=== PATIENT | male | born 1945 | race Caucasian/White ===

== ENCOUNTER → 2016-05-30 | Outpatient (CLI) | payer MEDICARE, BC | LOC: MW.CHFP 08:00 | PROVIDERS: ATTEND Student in an Organized Health Care Education/Training Program | DX: Z51.81 Encounter for therapeutic drug level monitoring (principal); Z79.01 Long term (current) use of anticoagulants; I48.91 Unspecified atrial fibrillation | CPT/HCPCS: 85610; 99211 ==

== ENCOUNTER → 2016-07-04 | Outpatient (CLI) | payer MEDICARE, BC | LOC: MW.CHFP 08:00 | PROVIDERS: ATTEND Student in an Organized Health Care Education/Training Program | DX: Z51.81 Encounter for therapeutic drug level monitoring (principal); Z79.01 Long term (current) use of anticoagulants; I48.91 Unspecified atrial fibrillation | CPT/HCPCS: 85610; 99211 ==

== ENCOUNTER → 2016-08-01 | Outpatient (CLI) | payer MEDICARE, BC | LOC: MW.CHFP 08:00 | PROVIDERS: ATTEND Student in an Organized Health Care Education/Training Program | DX: Z51.81 Encounter for therapeutic drug level monitoring (principal); Z79.01 Long term (current) use of anticoagulants; I48.91 Unspecified atrial fibrillation | CPT/HCPCS: 85610; 99211 ==

== ENCOUNTER 2017-02-02 10:23 | Inpatient (IN) | payer MEDICARE, BC ==
[2017-02-02] MEDS ORDERED: Sodium Chloride 0.9% 1,000 ML IV ONE (10:29)
[2017-02-02] MEDS ORDERED: Sodium Chloride 0.9% 2.5 ML Syringe FLUSH PRN ×3 (10:29→15:45)
[2017-02-02] MEDS ORDERED: Sodium Chloride 0.9% 10 ML Syringe FLUSH PRN ×2 (10:29→15:45)
--- NOTE | 2017-02-02 10:32 | EDM.PDOC ---
ED HPI GENERAL MEDICAL PROBLEM - General Chief Complaint: Neurological Problem Stated Complaint: SOB Time Seen by Provider: 02/02/17 10:27 - History of Present Illness INITIAL COMMENTS - FREE TEXT/NARRATIVE: HISTORY AND PHYSICAL: History of present illness: Patient 71-year-old white male history of dementia who recently had a urinary tract infection and presents today for evaluation of urinary incontinence and mental status reported changes per daughter patient is a baseline of noncommunicative and is in no distress he's been no reported fever chills nausea vomiting chest pain or other concern Review of systems: As per history of present illness and below otherwise all systems reviewed and negative. Past medical history: As per history of present illness and as reviewed below otherwise noncontributory. Surgical history: As per history of present illness and as reviewed below otherwise noncontributory. Social history: No reported history of drug or alcohol abuse. Family history: As per history of present illness and as reviewed below otherwise noncontributory. Physical exam: HEENT: Atraumatic, normocephalic, pupils reactive, negative for conjunctival pallor or scleral icterus, mucous membranes moist, throat clear, neck supple, nontender, trachea midline. Lungs: Coarse bilaterally, breath sounds equal bilaterally, chest nontender. Heart: S1S2, regular, negative for clicks, rubs, or JVD. Abdomen: Soft, nondistended, nontender. Negative for masses or hepatosplenomegaly. Negative for costovertebral tenderness. Pelvis: Stable nontender. Genitourinary: Deferred. Rectal: Deferred. Extremities: Atraumatic, negative for cords or calf pain. Neurovascular unremarkable. Neuro: Awake, alert, follows commands and moves all extremities and grossly nonfocal exam Diagnostics: CBC CMP troponin PT/INR chest x-ray UA urine C&S lactic acid blood culture 2 CT brain Therapeutics: IV O2 monitor Impression: #1 dementia #2 history of urinary incontinence #3 history of altered mental status Definitive disposition and diagnosis as appropriate pending reevaluation and review of above. - Related Data Allergies Allergy/AdvReac Type Severity Reaction Status Date / Time No Known Allergies Allergy Verified 02/02/17 11:36 Home Meds: Home Meds Albuterol [IJD: Ventolin HFA] 2 puff INH ASDIRECTED PRN 10/15/15 [History] Donepezil HCl [Aricept] 10 mg PO DAILY 10/15/15 [History] Memantine HCl [Namenda Xr] 28 mg PO DAILY 10/15/15 [History] Metoprolol Tartrate 25 mg PO BID 10/15/15 [History] PARoxetine HCl [Paxil] 10 mg PO DAILY 10/15/15 [History] Warfarin Sodium [Jantoven] 2.5 mg PO MOWEFR@2100 10/15/15 [History] Umeclidinium Brm/Vilanterol Tr [Anoro Ellipta 62.5-25 MCG] 02/02/17 [History] Warfarin [Coumadin] 5 mg PO SUTUTHSA@2100 02/02/17 [History] Past Medical History Cardiovascular History: Reports: Hypertension Respiratory History: Reports: COPD Psychiatric History: Reports: Alzheimers Disease, Anxiety, Dementia, Depression Social & Family History - Family History Family Medical History: Unobtainable - Tobacco Use Smoking Status *Q: Current Every Day Smoker Years of Tobacco use: 10 Packs/Tins Daily: 0.5 ED ROS GENERAL - Review of Systems Review Of Systems: ROS reveals no pertinent complaints other than HPI. ED EXAM, GENERAL - Physical Exam Exam: See Below (See dictation) Course - Vital Signs Last Recorded V/S: Last Vital Signs Temp 36.2 C 02/02/17 11:36 Pulse 81 02/02/17 11:36 Resp 18 02/02/17 11:36 BP 157/75 H 02/02/17 11:36 Pulse Ox 93 L 02/02/17 11:36 - Orders/Labs/Meds Orders: Active Orders 24 hr Category Date Time Status Cardiac Monitoring [RC] . DIRECTED Care 02/02/17 10:29 Active EKG Documentation Completion [RC] STAT Care 02/02/17 10:29 Active Chest 1V Frontal [CR] Stat Exams 02/02/17 10:29 Taken Head wo Cont [CT] Stat Exams 02/02/17 10:33 Taken CULTURE BLOOD [BC] Stat Lab 02/02/17 10:34 Ordered CULTURE BLOOD [BC] Stat Lab 02/02/17 11:24 Received CULTURE URINE [RM] Stat Lab 02/02/17 12:00 Received UA W/MICROSCOPIC [URIN] Stat Lab 02/02/17 12:00 Results Sodium Chloride 0.9% [Normal Saline] 1,000 ml Med 02/02/17 10:29 Active IV .Bolus Sodium Chloride 0.9% [Saline Flush] Med 02/02/17 10:29 Active 10 ml FLUSH ASDIRECTED PRN Sodium Chloride 0.9% [Saline Flush] Med 02/02/17 10:29 Active 2.5 ml FLUSH ASDIRECTED PRN Sodium Chloride 0.9% [Saline Flush] Med 02/02/17 10:29 Active 2.5 ml FLUSH ASDIRECTED PRN Saline Lock Insert [OM.PC] Stat Oth 02/02/17 10:29 Ordered Medication Orders Sodium Chloride (Normal Saline) 1,000 mls @ 125 mls/hr IV .Bolus ONE Stop: 02/02/17 18:28 Sodium Chloride (Saline Flush) 2.5 ml FLUSH ASDIRECTED PRN PRN Reason: Keep Vein Open Sodium Chloride (Saline Flush) 10 ml FLUSH ASDIRECTED PRN PRN Reason: Keep Vein Open Sodium Chloride (Saline Flush) 2.5 ml FLUSH ASDIRECTED PRN PRN Reason: Keep Vein Open Labs: Laboratory Tests 02/02/17 02/02/17 02/02/17 Range/Units 10:34 10:34 10:34 WBC 11.42 H (4.0-11.0) K/uL RBC 4.57 (4.50-5.90) M/uL Hgb 14.2 (13.0-17.0) g/dL Hct 43.8 (38.0-50.0) % MCV 95.8 (80.0-98.0) fL MCH 31.1 (27.0-32.0) pg MCHC 32.4 (31.0-37.0) g/dL RDW Std Deviation 49.8 (28.0-62.0) fl RDW Coeff of Yadiel 14 (11.0-15.0) % Plt Count 189 (150-400) K/uL MPV 11.00 (7.40-12.00) fL Neut % (Auto) 76.2 (48.0-80.0) % Lymph % (Auto) 14.8 L (16.0-40.0) % Harnett % (Auto) 7.0 (0.0-15.0) % Eos % (Auto) 1.6 (0.0-7.0) % Baso % (Auto) 0.4 (0.0-1.5) % Neut # (Auto) 8.7 H (1.4-5.7) K/uL Lymph # (Auto) 1.7 (0.6-2.4) K/uL Harnett # (Auto) 0.8 (0.0-0.8) K/uL Eos # (Auto) 0.2 (0.0-0.7) K/uL Baso # (Auto) 0.1 (0.0-0.1) K/uL Nucleated RBC % 0.0 /100WBC Nucleated RBCs # 0 K/uL INR 2.21 H (0.86-1.11) Sodium 139 (136-146) mmol/L Potassium 4.2 (3.5-5.1) mmol/L Chloride 105 (98-110) mmol/L Carbon Dioxide 24 (21-31) mmol/L BUN 24 H (6.0-23.0) mg/dL Creatinine 1.1 (0.6-1.5) mg/dL Est Cr Clr Drug Dosing TNP Estimated GFR (MDRD) > 60.0 ml/min Glucose 107 (60-110) mg/dL Calcium 9.4 (8.8-10.8) mg/dL Total Bilirubin 1.7 H (0.1-1.5) mg/dL AST 15 (5-40) IU/L ALT 14 (8-54) IU/L Alkaline Phosphatase 113 (40-150) Ammonia (14-68) UG/DL Troponin I < 0.10 (0.0-0.29) NG/ML Total Protein 7.6 (6.0-8.0) g/dL Albumin 3.8 (3.4-4.8) g/dL Globulin 3.8 H (2.0-3.5) g/dL Albumin/Globulin Ratio 1.0 L (1.3-2.8) Urine Color Urine Appearance Urine pH (5.0-8.0) Ur Specific [place] (1.001-1.035) Urine Protein (NEGATIVE) mg/dL Urine Glucose (UA) (NEGATIVE) mg/dL Urine Ketones (NEGATIVE) mg/dL Urine Occult Blood (NEGATIVE) Urine Nitrite (NEGATIVE) Urine Bilirubin (NEGATIVE) Urine Urobilinogen (<2.0) EU/dL Ur Leukocyte Esterase (NEGATIVE) 02/02/17 02/02/17 Range/Units 10:34 12:00 WBC (4.0-11.0) K/uL RBC (4.50-5.90) M/uL Hgb (13.0-17.0) g/dL Hct (38.0-50.0) % MCV (80.0-98.0) fL MCH (27.0-32.0) pg MCHC (31.0-37.0) g/dL RDW Std Deviation (28.0-62.0) fl RDW Coeff of Yadiel (11.0-15.0) % Plt Count (150-400) K/uL MPV (7.40-12.00) fL Neut % (Auto) (48.0-80.0) % Lymph % (Auto) (16.0-40.0) % Harnett % (Auto) (0.0-15.0) % Eos % (Auto) (0.0-7.0) % Baso % (Auto) (0.0-1.5) % Neut # (Auto) (1.4-5.7) K/uL Lymph # (Auto) (0.6-2.4) K/uL Harnett # (Auto) (0.0-0.8) K/uL Eos # (Auto) (0.0-0.7) K/uL Baso # (Auto) (0.0-0.1) K/uL Nucleated RBC % /100WBC Nucleated RBCs # K/uL INR (0.86-1.11) Sodium (136-146) mmol/L Potassium (3.5-5.1) mmol/L Chloride (98-110) mmol/L Carbon Dioxide (21-31) mmol/L BUN (6.0-23.0) mg/dL Creatinine (0.6-1.5) mg/dL Est Cr Clr Drug Dosing Estimated GFR (MDRD) ml/min Glucose (60-110) mg/dL Calcium (8.8-10.8) mg/dL Total Bilirubin (0.1-1.5) mg/dL AST (5-40) IU/L ALT (8-54) IU/L Alkaline Phosphatase (40-150) Ammonia 32 (14-68) UG/DL Troponin I (0.0-0.29) NG/ML Total Protein (6.0-8.0) g/dL Albumin (3.4-4.8) g/dL Globulin (2.0-3.5) g/dL Albumin/Globulin Ratio (1.3-2.8) Urine Color YELLOW Urine Appearance CLEAR Urine pH 6.0 (5.0-8.0) Ur Specific [place] >= 1.030 (1.001-1.035) Urine Protein NEGATIVE (NEGATIVE) mg/dL Urine Glucose (UA) NEGATIVE (NEGATIVE) mg/dL Urine Ketones NEGATIVE (NEGATIVE) mg/dL Urine Occult Blood TRACE-LYSED (NEGATIVE) Urine Nitrite NEGATIVE (NEGATIVE) Urine Bilirubin NEGATIVE (NEGATIVE) Urine Urobilinogen 0.2 (<2.0) EU/dL Ur Leukocyte Esterase NEGATIVE (NEGATIVE) Meds: Medications Generic Name Dose Route Start Last Admin Trade Name Freq PRN Reason Stop Dose Admin Sodium Chloride 1,000 mls @ 125 mls/hr 02/02/17 10:29 Normal Saline IV 02/02/17 18:28 .Bolus ONE Sodium Chloride 2.5 ml 02/02/17 10:29 Saline Flush FLUSH ASDIRECTED PRN Keep Vein Open Sodium Chloride 10 ml 02/02/17 10:29 Saline Flush FLUSH ASDIRECTED PRN Keep Vein Open Sodium Chloride 2.5 ml 02/02/17 10:29 Saline Flush FLUSH ASDIRECTED PRN Keep Vein Open Departure - Departure Time of Disposition: 12:14 Disposition: Home, Self-Care 01 Condition: Good Clinical Impression: History of urinary incontinence Dementia Qualifiers: Dementia type: unspecified type Dementia behavioral disturbance: without behavioral disturbance Qualified Code(s): F03.90 - Unspecified dementia without behavioral disturbance - Discharge Information Forms: ED Department Discharge Additional Instructions: The following information is given to patients seen in the emergency department who are being discharged to home. This information is to outline your options for follow-up care. We provide all patients seen in our emergency department with a follow-up referral. The need for follow-up, as well as the timing and circumstances, are variable depending upon the specifics of your emergency department visit. If you don't have a primary care physician on staff, we will provide you with a referral. We always advise you to contact your personal physician following an emergency department visit to inform them of the circumstance of the visit and for follow-up with them and/or the need for any referrals to a consulting specialist. The emergency department will also refer you to a specialist when appropriate. This referral assures that you have the opportunity for followup care with a specialist. All of these measure are taken in an effort to provide you with optimal care, which includes your followup. Under all circumstances we always encourage you to contact your private physician who remains a resource for coordinating your care. When calling for followup care, please make the office aware that this follow-up is from your recent emergency room visit. If for any reason you are refused follow-up, please contact the [facility] emergency department at and asked to speak to the emergency department charge nurse. Follow-up primary medical doctor 1-2 days return as needed as discussed - My Orders Last 24 Hours: My Active Orders 02/02/17 10:29 Cardiac Monitoring [RC] . DIRECTED EKG Documentation Completion [RC] STAT Chest 1V Frontal [CR] Stat Sodium Chloride 0.9% [Normal Saline] 1,000 ml IV .Bolus Sodium Chloride 0.9% [Saline Flush] 10 ml FLUSH ASDIRECTED PRN Sodium Chloride 0.9% [Saline Flush] 2.5 ml FLUSH ASDIRECTED PRN Sodium Chloride 0.9% [Saline Flush] 2.5 ml FLUSH ASDIRECTED PRN Saline Lock Insert [OM.PC] Stat 02/02/17 10:33 Head wo Cont [CT] Stat 02/02/17 10:34 CULTURE BLOOD [BC] Stat 02/02/17 11:24 CULTURE BLOOD [BC] Stat 02/02/17 12:00 CULTURE URINE [RM] Stat UA W/MICROSCOPIC [URIN] Stat - Assessment/Plan Last 24 Hours: My Active Orders 02/02/17 10:29 Cardiac Monitoring [RC] . DIRECTED EKG Documentation Completion [RC] STAT Chest 1V Frontal [CR] Stat Sodium Chloride 0.9% [Normal Saline] 1,000 ml IV .Bolus Sodium Chloride 0.9% [Saline Flush] 10 ml FLUSH ASDIRECTED PRN Sodium Chloride 0.9% [Saline Flush] 2.5 ml FLUSH ASDIRECTED PRN Sodium Chloride 0.9% [Saline Flush] 2.5 ml FLUSH ASDIRECTED PRN Saline Lock Insert [OM.PC] Stat 02/02/17 10:33 Head wo Cont [CT] Stat 02/02/17 10:34 CULTURE BLOOD [BC] Stat 02/02/17 11:24 CULTURE BLOOD [BC] Stat 02/02/17 12:00 CULTURE URINE [RM] Stat UA W/MICROSCOPIC [URIN] Stat
[2017-02-02 11:04] LABS: CHLORIDE,CL 105 mmol/L (98-110); SODIUM,NA 139 mmol/L (136-146)
[2017-02-02] MEDS ORDERED: Levofloxacin/Dextrose 5%-Water 750 MG in Premix Bag 1 BAG IV ONE (12:33)
[2017-02-02] MEDS ORDERED: Albuterol 0.083% 2.5 MG/3 ML Neb Soln NEB PRN (15:45)
[2017-02-02] MEDS ORDERED: Albuterol 8 GM Inhaler INH PRN (15:57)
[2017-02-02] MEDS: Azithromycin 500 MG in Sodium Chloride 0.9% 250 ML IV SCH (17:06)
[2017-02-02] MEDS: Furosemide 40 MG/4 ML VIAL IVPUSH SCH (20:54)
[2017-02-02] MEDS: Metoprolol Tartrate 25 MG Tab PO SCH (20:55)
[2017-02-02] MEDS ORDERED: Warfarin 5 MG Tab PO SCH (21:00)
--- NOTE | 2017-02-02 22:36 | PCM.HP ---
H&P History of Present Illness - General Date of Service: 02/02/17 Admit Problem/Dx: Admission Diagnosis/Problem Admission Diagnosis/Problem CHF, Congestive heart failure Source of Information: Family - History of Present Illness Initial Comments - Free Text/Narative: Patient 71 years old man with hx of severe dementia presented to Er brought by his daughter who is taking care of him because for the past few days patient is feeling very weak and is unable to get out of bed, as he usually does. He also had low grade fever and an episode of urinary incontinence and his mental status is worse than his baseline , as per daughter Patient is already on low dose of levofloxacin for UTI started few days ago Onset of Symptoms: Reports: Gradual - Related Data Allergies/Adverse Reactions: Allergies Allergy/AdvReac Type Severity Reaction Status Date / Time No Known Allergies Allergy Verified 02/02/17 11:36 Home Medications: Home Meds Albuterol [IJD: Ventolin HFA] 2 puff INH Q6H PRN 10/15/15 [History] Donepezil HCl [Aricept] 10 mg PO DAILY 10/15/15 [History] Memantine HCl [Namenda Xr] 28 mg PO DAILY 10/15/15 [History] Metoprolol Tartrate 25 mg PO BID 10/15/15 [History] PARoxetine HCl [Paxil] 10 mg PO DAILY 10/15/15 [History] Warfarin Sodium [Jantoven] 2.5 mg PO MOWEFR@2100 10/15/15 [History] Levofloxacin 750 mg PO DAILY 02/02/17 [History] Umeclidinium Brm/Vilanterol Tr [Anoro Ellipta 62.5-25 MCG] 1 inh IH DAILY [History] Warfarin [Coumadin] 5 mg PO SUTUTHSA@2100 02/02/17 [History] Past Medical History - Past Health History Medical/Surgical History: Denies Medical/Surgical History Cardiovascular History: Reports: Afib, Hypertension Respiratory History: Reports: COPD Genitourinary History: Reports: Urinary Incontinence Neurological History: Reports: Alzheimers Disease Psychiatric History: Reports: Alzheimers Disease, Anxiety, Dementia, Depression Dermatologic History: Reports: Other (See Below) Other Dermatologic History: dry skin - Infectious Disease History Infectious Disease History: Reports: None Social & Family History - Family History Family Medical History: Unobtainable - Tobacco Use Smoking Status *Q: Former Smoker Years of Tobacco use: 10 Packs/Tins Daily: 0.5 Used Tobacco, but Quit: Yes Month Tobacco Last Used: 10/2015 - Caffeine Use Caffeine Use: Reports: Coffee - Recreational Drug Use Recreational Drug Use: No H&P Review of Systems - Review of Systems: Review Of Systems: See Below Exam - Exam Exam: See Below - Vital Signs Vital Signs: Last Vital Signs Temp 98.2 F 02/02/17 15:45 Pulse 88 02/02/17 20:55 Resp 22 H 02/02/17 19:45 BP 141/75 H 02/02/17 20:55 Pulse Ox 96 02/02/17 19:45 Weight: 230 lb 4.8 oz - Exam General: Alert HEENT: Conjunctiva Clear Neck: Supple, Trachea Midline, JVD Lungs: Decreased Breath Sounds, Crackles Cardiovascular: Normal S1, Normal S2, Irregular Rhythm, Gallop/S3 GI/Abdominal Exam: Normal Bowel Sounds, Non-Tender, No Organomegaly, No Distention, No Abnormal Bruit, No Mass Back Exam: Normal Inspection Extremities: Normal Inspection Neuro Extensive - Mental Status: Alert. No: Oriented x3 - Patient Data Result Diagrams: 02/02/17 10:34 02/02/17 10:34 *Q Meaningful Use (ADM) - VTE *Q VTE Criteria *Q: - Stroke *Q Stroke Criteria *Q: - AMI *Q AMI Criteria *Q: - Problem List (1) Acute exacerbation of CHF (congestive heart failure) SNOMED Code(s): 41553251 ICD Code: I50.9 - HEART FAILURE, UNSPECIFIED Status: Acute Current Visit : Yes (2) Pneumonia SNOMED Code(s): 357427736 ICD Code: J18.9 - PNEUMONIA, UNSPECIFIED ORGANISM Status: Acute Current Visit: Yes (3) Chronic atrial fibrillation SNOMED Code(s): 985329844 ICD Code: I48.2 - CHRONIC ATRIAL FIBRILLATION Status: Acute Current Visit : Yes Problem List Initiated/Reviewed/Updated: Yes Orders Last 24hrs: Active Orders 24 hr Category Date Time Status Telemetry Monitoring [Cardiac Monitoring] [RC] Q8H Care 02/02/17 15:59 Active Urinary Catheter Insertion [Insert Urinary Catheter] [ Care 02/02/17 11:45 Ordered OM.PC] Q24H Albuterol [Ventolin HFA] Med 02/02/17 15:57 Active 0 gm INH Q6H PRN Azithromycin [Zithromax] 500 mg Med 02/02/17 16:15 Active Sodium Chloride 0.9% [Normal Saline] 250 ml IV Q24H Donepezil [Aricept] Med 02/03/17 09:00 Active 10 mg PO DAILY Furosemide [Lasix] Med 02/02/17 21:00 Active 40 mg IVPUSH BID Metoprolol Tartrate [Lopressor] Med 02/02/17 21:00 Active 25 mg PO BID PARoxetine [Paxil] Med 02/03/17 09:00 Active 10 mg PO DAILY Patient's Own Medication [Ptom] Med 02/03/17 09:00 Active 1 each INH DAILY Patient's Own Medication [Ptom] Med 02/03/17 09:00 Active 1 each PO DAILY Warfarin [Coumadin] Med 02/03/17 21:00 Active 2.5 mg PO MOWEFR@2100 Warfarin [Coumadin] Med 02/02/17 21:00 Active 5 mg PO SUTUTHSA@2100 cefTRIAXone [Rocephin in Dextrose,Iso-Osm 1 GM/50 ML] 1 Med 02/03/17 09:00 Active gm Premix Bag 1 bag IV Q24H Medication Orders Albuterol (Proventil Neb Soln) 2.5 mg NEB Q2H PRN PRN Reason: Shortness Of Breath/wheezing Albuterol (Ventolin Hfa) 0 gm INH Q6H PRN PRN Reason: Dyspnea Donepezil HCl (Aricept) 10 mg PO DAILY [facility] Furosemide (Lasix) 40 mg IVPUSH BID [facility] Last Admin: 02/02/17 20:54 Dose: 40 mg Ceftriaxone Sodium/Dextrose 1 (gm/ Premix) 50 mls @ 200 mls/hr IV Q24H SHRUTHI Azithromycin 500 mg/ Sodium (Chloride) 250 mls @ 250 mls/hr IV Q24H [facility] Last Admin: 02/02/17 17:06 Dose: 250 mls/hr Metoprolol Tartrate (Lopressor) 25 mg PO BID [facility] Last Admin: 02/02/17 20:55 Dose: 25 mg Paroxetine HCl (Paxil) 10 mg PO DAILY [facility] Namenda Xr 28 Mg 1 each PO DAILY [facility] Breo Inhaler 1 each INH DAILY [facility] Sodium Chloride (Saline Flush) 2.5 ml FLUSH ASDIRECTED PRN PRN Reason: Keep Vein Open Sodium Chloride (Saline Flush) 10 ml FLUSH ASDIRECTED PRN PRN Reason: Keep Vein Open Sodium Chloride (Saline Flush) 2.5 ml FLUSH ASDIRECTED PRN PRN Reason: Keep Vein Open Sodium Chloride (Saline Flush) 10 ml FLUSH ASDIRECTED PRN PRN Reason: Keep Vein Open Sodium Chloride (Saline Flush) 2.5 ml FLUSH ASDIRECTED PRN PRN Reason: Keep Vein Open Warfarin Sodium (Coumadin) 5 mg PO SUTUTHSA@2100 [facility]RUTHI Last Admin: 02/02/17 20:54 Dose: 5 mg Warfarin Sodium (Coumadin) 2.5 mg PO MOWEFR@2100 [facility]RUTHI CXR - Patient's chest x-ray demonstrates a left pleural effusion with basilar infiltrate patient is without fever chills nausea vomiting patient also noted to have a small right basilar opacity Assessment/Plan Comment:: A/P lethargy generalized weakness Pneumonia CHF exac Chonic a fib Plan: will admit patient to med telemetry hospital monitor lasix 40 mg iv BID supplement electrolytes Rocephin, azithromycin iv from tomorrow. will change the antib to cetriaxone and azithromycin due to concern of increase INR with levofloxacin Cardiac echo Monitor I and O
[2017-02-02] MEDS ORDERED: Albuterol/Ipratropium 3.0-0.5 MG/3 ML Neb Soln NEB PRN (22:37)
[2017-02-03 06:23] LABS: CHLORIDE,CL 104 mmol/L (98-110); SODIUM,NA 138 mmol/L (136-146)
[2017-02-03] MEDS: Furosemide 40 MG/4 ML VIAL IVPUSH SCH ×2 (08:08→22:13)
[2017-02-03] MEDS: cefTRIAXone 1 GM in Premix Bag 1 BAG IV SCH (08:08)
[2017-02-03] MEDS: PARoxetine 20 MG Tab PO SCH (08:15)
[2017-02-03] MEDS: Metoprolol Tartrate 25 MG Tab PO SCH ×2 (08:16→22:07)
[2017-02-03] MEDS: Donepezil 10 MG Tab PO SCH (08:16)
[2017-02-03] MEDS: UMECLIDINIUM INH SCH (09:29)
[2017-02-03] MEDS: [UNRECOGNIZED DRUG - OTHER] INH SCH (09:29)
[2017-02-03] MEDS: VILANTEROL INH SCH (09:29)
--- NOTE | 2017-02-03 09:35 | PCM.PN ---
<Suzanne Tadeo - Last Filed: 02/03/17 10:10> - General Info Date of Service: 02/03/17 Subjective Update: Dementia - Patient Data Vitals - Most Recent: Last Vital Signs Temp 97.6 F 02/03/17 08:00 Pulse 74 02/03/17 08:16 Resp 22 H 02/03/17 08:00 BP 147/89 H 02/03/17 08:16 Pulse Ox 92 L 02/03/17 08:00 Weight - Most Recent: 230 lb 4.8 oz I&O - Last 24 Hours: Intake & Output 02/02/17 02/03/17 02/03/17 22:59 06:59 14:59 Intake Total 50 Balance 50 Lab Results Last 24 Hours: Laboratory Results - last 24 hr 02/03/17 02/03/17 Range/Units 05:43 05:43 WBC 8.36 (4.0-11.0) K/uL RBC 4.09 L (4.50-5.90) M/uL Hgb 12.5 L (13.0-17.0) g/dL Hct 38.6 (38.0-50.0) % MCV 94.4 (80.0-98.0) fL MCH 30.6 (27.0-32.0) pg MCHC 32.4 (31.0-37.0) g/dL RDW Std Deviation 48.6 (28.0-62.0) fl RDW Coeff of Yadiel 14 (11.0-15.0) % Plt Count 173 (150-400) K/uL MPV 11.50 (7.40-12.00) fL Neut % (Auto) 60.5 (48.0-80.0) % Lymph % (Auto) 25.2 (16.0-40.0) % Mccreary % (Auto) 10.8 (0.0-15.0) % Eos % (Auto) 2.9 (0.0-7.0) % Baso % (Auto) 0.6 (0.0-1.5) % Neut # (Auto) 5.1 (1.4-5.7) K/uL Lymph # (Auto) 2.1 (0.6-2.4) K/uL M[place]reary # (Auto) 0.9 H (0.0-0.8) K/uL Eos # (Auto) 0.2 (0.0-0.7) K/uL Baso # (Auto) 0.1 (0.0-0.1) K/uL Nucleated RBC % 0.0 /100WBC Nucleated RBCs # 0 K/uL Sodium 138 (136-146) mmol/L Potassium 3.7 (3.5-5.1) mmol/L Chloride 104 (98-110) mmol/L Carbon Dioxide 25 (21-31) mmol/L BUN 25 H (6.0-23.0) mg/dL Creatinine 1.1 (0.6-1.5) mg/dL Est Cr Clr Drug Dosing 65.74 mL/min Estimated GFR (MDRD) > 60.0 ml/min Glucose 93 (60-110) mg/dL Calcium 8.9 (8.8-10.8) mg/dL Phosphorus 3.1 (2.4-4.7) mg/dL Magnesium 1.6 (1.5-2.3) mEq/L Med Orders - Current: Current Medications Albuterol/Ipratropium (Duoneb 3.0-0.5 Mg/3 Ml) 3 ml NEB Q4HRRT PRN PRN Reason: sob Donepezil HCl (Aricept) 10 mg PO DAILY [facility] Last Admin: 02/03/17 08:16 Dose: 10 mg Furosemide (Lasix) 40 mg IVPUSH BID [facility] Last Admin: 02/03/17 08:08 Dose: 40 mg Ceftriaxone Sodium/Dextrose 1 (gm/ Premix) 50 mls @ 200 mls/hr IV Q24H [facility] Last Admin: 02/03/17 08:08 Dose: 200 mls/hr Azithromycin 500 mg/ Sodium (Chloride) 250 mls @ 250 mls/hr IV Q24H [facility] Last Admin: 02/02/17 17:06 Dose: 250 mls/hr Lisinopril (Prinivil) 5 mg PO DAILY [facility] Metoprolol Tartrate (Lopressor) 25 mg PO BID [facility] Last Admin: 02/03/17 08:16 Dose: 25 mg Paroxetine HCl (Paxil) 10 mg PO DAILY [facility] Last Admin: 02/03/17 08:15 Dose: 10 mg Namenda Xr 28 Mg 1 each PO DAILY [facility] Last Admin: 02/03/17 09:29 Dose: Not Given Breo Inhaler 1 each INH DAILY [facility] Last Admin: 02/03/17 09:29 Dose: Not Given Sodium Chloride (Saline Flush) 2.5 ml FLUSH ASDIRECTED PRN PRN Reason: Keep Vein Open Sodium Chloride (Saline Flush) 10 ml FLUSH ASDIRECTED PRN PRN Reason: Keep Vein Open Sodium Chloride (Saline Flush) 2.5 ml FLUSH ASDIRECTED PRN PRN Reason: Keep Vein Open Sodium Chloride (Saline Flush) 10 ml FLUSH ASDIRECTED PRN PRN Reason: Keep Vein Open Sodium Chloride (Saline Flush) 2.5 ml FLUSH ASDIRECTED PRN PRN Reason: Keep Vein Open Warfarin Sodium (Coumadin) 5 mg PO SUTUTHSA@2100 [facility] Last Admin: 02/02/17 20:54 Dose: 5 mg Warfarin Sodium (Coumadin) 2.5 mg PO MOWEFR@2100 [facility] Discontinued Medications Albuterol (Proventil Neb Soln) 2.5 mg NEB Q2H PRN PRN Reason: Shortness Of Breath/wheezing Albuterol (Ventolin Hfa) 0 gm INH Q6H PRN PRN Reason: Dyspnea Sodium Chloride (Normal Saline) 1,000 mls @ 125 mls/hr IV .Bolus ONE Stop: 02/02/17 18:28 Last Admin: 02/02/17 11:35 Dose: 125 mls/hr Levofloxacin/Dextrose 750 mg/ (Premix) 150 mls @ 100 mls/hr IV ONETIME ONE Stop: 02/02/17 14:02 Last Admin: 02/02/17 13:36 Dose: 100 mls/hr - Exam General: Alert HEENT: Pupils Equal, EOMI Lungs: Decreased Breath Sounds. No: Wheezing Cardiovascular: Regular Rate, Regular Rhythm GI/Abdominal Exam: Normal Bowel Sounds, Soft Back Exam: Normal Inspection, Full Range of Motion Extremities: Normal Inspection Skin: Warm, Dry, Intact Neurological: No New Focal Deficit Psy/Mental Status: Alert, Normal Affect, Normal Mood - Problem List Review Problem List Initiated/Reviewed/Updated: Yes - My Orders Last 24 Hours: My Active Orders 02/03/17 09:45 Lisinopril [Prinivil] 5 mg PO DAILY - Plan Plan:: A/P lethargy generalized weakness Pneumonia CHF exac Chonic a fib Plan: stack attendant: no arrythmia lasix 40 mg iv BID supplement electrolytes continue cetriaxone and azithromycin due to concern of increase INR with levofloxacin HTN: start lisinopril 5 mg po qd Cardiac echo ordered today <Sabrina Sepulveda - Last Filed: 02/03/17 17:28> - Patient Data Vitals - Most Recent: Last Vital Signs Temp 96.9 F 02/03/17 16:00 Pulse 60 02/03/17 16:00 Resp 22 H 02/03/17 16:00 BP 122/77 02/03/17 16:00 Pulse Ox 93 L 02/03/17 16:00 I&O - Last 24 Hours: Intake & Output 02/03/17 02/03/17 02/03/17 06:59 14:59 22:59 Intake Total 50 690 Output Total 650 Balance 50 40 Lab Results Last 24 Hours: Laboratory Results - last 24 hr 02/03/17 02/03/17 Range/Units 05:43 05:43 WBC 8.36 (4.0-11.0) K/uL RBC 4.09 L (4.50-5.90) M/uL Hgb 12.5 L (13.0-17.0) g/dL Hct 38.6 (38.0-50.0) % MCV 94.4 (80.0-98.0) fL MCH 30.6 (27.0-32.0) pg MCHC 32.4 (31.0-37.0) g/dL RDW Std Deviation 48.6 (28.0-62.0) fl RDW Coeff of Yadiel 14 (11.0-15.0) % Plt Count 173 (150-400) K/uL MPV 11.50 (7.40-12.00) fL Neut % (Auto) 60.5 (48.0-80.0) % Lymph % (Auto) 25.2 (16.0-40.0) % Mccreary % (Auto) 10.8 (0.0-15.0) % Eos % (Auto) 2.9 (0.0-7.0) % Baso % (Auto) 0.6 (0.0-1.5) % Neut # (Auto) 5.1 (1.4-5.7) K/uL Lymph # (Auto) 2.1 (0.6-2.4) K/uL [place] # (Auto) 0.9 H (0.0-0.8) K/uL Eos # (Auto) 0.2 (0.0-0.7) K/uL Baso # (Auto) 0.1 (0.0-0.1) K/uL Nucleated RBC % 0.0 /100WBC Nucleated RBCs # 0 K/uL Sodium 138 (136-146) mmol/L Potassium 3.7 (3.5-5.1) mmol/L Chloride 104 (98-110) mmol/L Carbon Dioxide 25 (21-31) mmol/L BUN 25 H (6.0-23.0) mg/dL Creatinine 1.1 (0.6-1.5) mg/dL Est Cr Clr Drug Dosing 65.74 mL/min Estimated GFR (MDRD) > 60.0 ml/min Glucose 93 (60-110) mg/dL Calcium 8.9 (8.8-10.8) mg/dL Phosphorus 3.1 (2.4-4.7) mg/dL Magnesium 1.6 (1.5-2.3) mEq/L Med Orders - Current: Current Medications Albuterol/Ipratropium (Duoneb 3.0-0.5 Mg/3 Ml) 3 ml NEB Q4HRRT PRN PRN Reason: sob Donepezil HCl (Aricept) 10 mg PO DAILY [facility] Last Admin: 02/03/17 08:16 Dose: 10 mg Furosemide (Lasix) 40 mg IVPUSH BID [facility] Last Admin: 02/03/17 08:08 Dose: 40 mg Ceftriaxone Sodium/Dextrose 1 (gm/ Premix) 50 mls @ 200 mls/hr IV Q24H [facility] Last Admin: 02/03/17 08:08 Dose: 200 mls/hr Azithromycin 500 mg/ Sodium (Chloride) 250 mls @ 250 mls/hr IV Q24H [facility] Last Admin: 02/03/17 15:35 Dose: 250 mls/hr Lisinopril (Prinivil) 5 mg PO DAILY [facility] Last Admin: 02/03/17 09:59 Dose: 5 mg Metoprolol Tartrate (Lopressor) 25 mg PO BID [facility] Last Admin: 02/03/17 08:16 Dose: 25 mg Paroxetine HCl (Paxil) 10 mg PO DAILY [facility] Last Admin: 02/03/17 08:15 Dose: 10 mg Namenda Xr 28 Mg 1 each PO DAILY [facility] Last Admin: 02/03/17 09:29 Dose: Not Given Anoro Ellipta Umeclidinium/Vilanterol 62.5/25 1 each INH DAILY [facility] Last Admin: 02/03/17 09:29 Dose: Not Given Sodium Chloride (Saline Flush) 2.5 ml FLUSH ASDIRECTED PRN PRN Reason: Keep Vein Open Sodium Chloride (Saline Flush) 10 ml FLUSH ASDIRECTED PRN PRN Reason: Keep Vein Open Sodium Chloride (Saline Flush) 2.5 ml FLUSH ASDIRECTED PRN PRN Reason: Keep Vein Open Sodium Chloride (Saline Flush) 10 ml FLUSH ASDIRECTED PRN PRN Reason: Keep Vein Open Sodium Chloride (Saline Flush) 2.5 ml FLUSH ASDIRECTED PRN PRN Reason: Keep Vein Open Warfarin Sodium (Coumadin) 5 mg PO SUTUTHSA@2100 [facility] Last Admin: 02/02/17 20:54 Dose: 5 mg Warfarin Sodium (Coumadin) 2.5 mg PO MOWEFR@2100 [facility] Discontinued Medications Albuterol (Proventil Neb Soln) 2.5 mg NEB Q2H PRN PRN Reason: Shortness Of Breath/wheezing Albuterol (Ventolin Hfa) 0 gm INH Q6H PRN PRN Reason: Dyspnea Sodium Chloride (Normal Saline) 1,000 mls @ 125 mls/hr IV .Bolus ONE Stop: 02/02/17 18:28 Last Admin: 02/02/17 11:35 Dose: 125 mls/hr Levofloxacin/Dextrose 750 mg/ (Premix) 150 mls @ 100 mls/hr IV ONETIME ONE Stop: 02/02/17 14:02 Last Admin: 02/02/17 13:36 Dose: 100 mls/hr - Problem List & Annotations (1) Acute exacerbation of CHF (congestive heart failure) SNOMED Code(s): 23841660 Code(s): I50.9 - HEART FAILURE, UNSPECIFIED Status: Acute Current Visit: Yes (2) Pneumonia SNOMED Code(s): 735667320 Code(s): J18.9 - PNEUMONIA, UNSPECIFIED ORGANISM Status: Acute Current Visit: Yes (3) Chronic atrial fibrillation SNOMED Code(s): 357690454 Code(s): I48.2 - CHRONIC ATRIAL FIBRILLATION Status: Acute Current Visit : Yes - My Orders Last 24 Hours: My Active Orders 02/02/17 21:00 Furosemide [Lasix] 40 mg IVPUSH BID Metoprolol Tartrate [Lopressor] 25 mg PO BID Warfarin [Coumadin] 5 mg PO EILEENUTHSA@2100 02/02/17 22:36 Code Status [Resuscitation Status] Routine 02/02/17 22:37 RT Aerosol Therapy [RC] ASDIRECTED Albuterol/Ipratropium [DuoNeb 3.0-0.5 MG/3 ML] 3 ml NEB Q4HRRT PRN 02/03/17 09:00 Donepezil [Aricept] 10 mg PO DAILY PARoxetine [Paxil] 10 mg PO DAILY Patient's Own Medication [Ptom] 1 each INH DAILY Patient's Own Medication [Ptom] 1 each PO DAILY cefTRIAXone [Rocephin in Dextrose,Iso-Osm 1 GM/50 ML] 1 gm Premix Bag 1 bag IV Q24H 02/03/17 21:00 Warfarin [Coumadin] 2.5 mg PO MOWEFR@2100 - Plan Plan:: PT evaluation Patient seen with resident , agree with plan
[2017-02-03] MEDS: Lisinopril 5 MG Tab PO SCH (09:59)
--- NOTE | 2017-02-03 12:57 | CT ---
EXAM DATE: 02/02/17 PATIENT'S AGE: 71 Patient: JOSSELINE VILLEGAS Facility: [place], [place] Site . Site : 1945 Study: CT Head [id number]/26/2017 10:57:29 AM Ordering Physician: Lynsey Montoya Final Report: Weakness technique noncontrast head CTComparison: Head CT 10/15/2015. Findings: Axial noncontrast images through the brain parenchyma demonstrates no acute intracranial hemorrhage or mass. There is generalized parenchymal volume loss with periventricular hypo lucencies likely reflecting chronic small vessel ischemic change. The paranasal sinuses, mastoid air cells skull and scalp appear unremarkable. Impression: 1. No acute intracranial hemorrhage or mass. 2. Generalized parenchymal volume loss with periventricular hypo lucencies likely reflecting chronic small vessel ischemic change. Please note that all CT scans at this facility use dose modulation, iterative reconstruction, and/or weight-based dosing when appropriate to reduce radiation dose to as low as reasonably achievable. Dictated by Gloria Forrest MD @ Feb 02 2017 11:28AM (Electronic Signature) Report Signed by Proxy. [facility]
--- NOTE | 2017-02-03 12:58 | CR ---
EXAM DATE: 02/02/17 PATIENT'S AGE: 71 Patient: JOSSELINE VILLEGAS Facility: [place], [place] Site . Site : 1945 Study: XRay Chest [id number]/26/2017 10:57:43 AM Ordering Physician: Lynsey Montoya Final Report: INDICATION: Cough. Technique: AP portable chest x-ray. Comparison: Chest x-ray 11/17/2015. Findings: New greater than small size left pleural effusion with left basilar infiltrate and atelectasis small amount of right basilar opacity new. Findings could be related to asymmetric early pulmonary edema/CHF but infectious etiology such as a left basilar pneumonia cannot be excluded. Heart size upper limits of normal. Followup chest x-ray could to ensure resolution of the above findings. Central pulmonary arteries are mildly prominent. Chest otherwise unremarkable with pulmonary vascularity in the upper lungs being within normal limits. Dictated by Brandon Pollack MD @ Feb 02 2017 11:33AM (Electronic Signature) Report Signed by Proxy. [facility]
[2017-02-03] MEDS: Azithromycin 500 MG in Sodium Chloride 0.9% 250 ML IV SCH (15:35)
[2017-02-03] MEDS ORDERED: Warfarin 2.5 MG Tab PO SCH (21:00)
[2017-02-04] MEDS: Donepezil 10 MG Tab PO SCH (08:51)
[2017-02-04] MEDS: PARoxetine 20 MG Tab PO SCH (08:51)
[2017-02-04] MEDS: Lisinopril 5 MG Tab PO SCH (08:51)
[2017-02-04] MEDS: cefTRIAXone 1 GM in Premix Bag 1 BAG IV SCH (08:52)
[2017-02-04] MEDS: Metoprolol Tartrate 25 MG Tab PO SCH (08:52)
[2017-02-04] MEDS: Furosemide 40 MG/4 ML VIAL IVPUSH SCH (08:52)
[2017-02-04] MEDS: VILANTEROL INH SCH (08:56)
[2017-02-04] MEDS: [UNRECOGNIZED DRUG - OTHER] INH SCH (08:56)
[2017-02-04] MEDS: UMECLIDINIUM INH SCH (08:56)
[2017-02-04] MEDS ORDERED: Docusate Sodium 100 MG Cap PO PRN (09:44)
--- NOTE | 2017-02-04 10:47 | PCM.DCSUM1 ---
Discharge Summary - Hospital Course Free Text/Narrative:: Patient 71 years old man with hx of severe dementia admitted for weakness and Pneumonia. He was started on levaquin outpatient but per daughter he did not take it. He was started on rocephin and azithromycin. His Head CT negative, CXR showed left sided pneumonia. Blood, sputum, urine, sputum culture negative. He clinically improved. He was discharged with azithromycin. He is to follow up with PCP. - Discharge Data Discharge Date: 02/04/17 Discharge Disposition: Home, W Home Health Agency 06 Condition: Good - Patient Instructions Diet: Low Sodium Activity: As Tolerated Driving: Do Not Drive Showering/Bathing: July Shower Notify Provider of: Fever, Increased Pain, Swelling and Redness, Drainage, Nausea and/or Vomiting - Discharge Plan Prescriptions/Med Rec: Azithromycin 500 mg PO DAILY #5 tablet Home Medications: Home Meds Albuterol [IJD: Ventolin HFA] 2 puff INH Q6H PRN 10/15/15 [History] Donepezil HCl [Aricept] 10 mg PO DAILY 10/15/15 [History] Memantine HCl [Namenda Xr] 28 mg PO DAILY 10/15/15 [History] Metoprolol Tartrate 25 mg PO BID 10/15/15 [History] PARoxetine HCl [Paxil] 10 mg PO DAILY 10/15/15 [History] Warfarin Sodium [Jantoven] 2.5 mg PO MOWEFR@209910/15/15 [History] Umeclidinium Brm/Vilanterol Tr [Anoro Ellipta 62.5-25 MCG] 1 inh IH DAILY [History] Warfarin [Coumadin] 5 mg PO SUTUTHSA@2100 02/02/17 [History] Azithromycin 500 mg PO DAILY #5 tablet 02/04/17 [Rx] Patient Handouts: Azithromycin tablets, Dementia, Heart Failure, Atrial Fibrillation, [id number], Community-Acquired Pneumonia, Adult, [id number] Referrals: Sarah Mckinley NP [Nurse Practitioner] - 02/11/17 9:30 am () - General Info Date of Service: 02/04/17 - Review of Systems General: Reports: No Symptoms HEENT: Reports: No Symptoms Pulmonary: Reports: No Symptoms Cardiovascular: Reports: No Symptoms Gastrointestinal: Reports: No Symptoms Musculoskeletal: Reports: No Symptoms Skin: Reports: No Symptoms Neurological: Reports: No Symptoms Psychiatric: Reports: No Symptoms - Patient Data Vitals - Most Recent: Last Vital Signs Temp 97.2 F 02/04/17 08:00 Pulse 87 02/04/17 08:52 Resp 20 02/04/17 08:00 BP 147/67 H 02/04/17 08:52 Pulse Ox 91 L 02/04/17 08:00 Weight - Most Recent: 103.011 kg I&O - Last 24 hours: Intake & Output 02/03/17 02/04/17 02/04/17 22:59 06:59 14:59 Intake Total 690 150 Output Total 650 Balance 40 150 Lab Results - Last 24 hrs: Laboratory Results - last 24 hr 02/04/17 02/04/17 02/04/17 Range/Units 05:09 05:09 05:09 WBC 9.25 (4.0-11.0) K/uL RBC 4.10 L (4.50-5.90) M/uL Hgb 12.7 L (13.0-17.0) g/dL Hct 38.5 (38.0-50.0) % MCV 93.9 (80.0-98.0) fL MCH 31.0 (27.0-32.0) pg MCHC 33.0 (31.0-37.0) g/dL RDW Std Deviation 48.8 (28.0-62.0) fl RDW Coeff of Yadiel 14 (11.0-15.0) % Plt Count 177 (150-400) K/uL MPV 10.90 (7.40-12.00) fL Neut % (Auto) 58.8 (48.0-80.0) % Lymph % (Auto) 26.5 (16.0-40.0) % [place] % (Auto) 10.2 (0.0-15.0) % Eos % (Auto) 3.7 (0.0-7.0) % Baso % (Auto) 0.8 (0.0-1.5) % Neut # (Auto) 5.5 (1.4-5.7) K/uL Lymph # (Auto) 2.5 H (0.6-2.4) K/uL [place] # (Auto) 0.9 H (0.0-0.8) K/uL Eos # (Auto) 0.3 (0.0-0.7) K/uL Baso # (Auto) 0.1 (0.0-0.1) K/uL Nucleated RBC % 0.0 /100WBC Nucleated RBCs # 0 K/uL INR 2.26 H (0.86-1.11) Sodium 140 (136-146) mmol/L Potassium 3.8 (3.5-5.1) mmol/L Chloride 102 (98-110) mmol/L Carbon Dioxide 29 (21-31) mmol/L BUN 38 H (6.0-23.0) mg/dL Creatinine 1.6 H (0.6-1.5) mg/dL Est Cr Clr Drug Dosing 45.19 mL/min Estimated GFR (MDRD) 42.6 ml/min Glucose 91 (60-110) mg/dL Calcium 8.9 (8.8-10.8) mg/dL Phosphorus 3.8 (2.4-4.7) mg/dL Magnesium 1.6 (1.5-2.3) mEq/L Med Orders - Current: Current Medications Albuterol/Ipratropium (Duoneb 3.0-0.5 Mg/3 Ml) 3 ml NEB Q4HRRT PRN PRN Reason: sob Amlodipine Besylate (Norvasc) 5 mg PO DAILY [facility] Docusate Sodium (Colace) 100 mg PO BID PRN PRN Reason: Constipation Last Admin: 02/04/17 10:09 Dose: 100 mg Donepezil HCl (Aricept) 10 mg PO DAILY [facility] Last Admin: 02/04/17 08:51 Dose: 10 mg Furosemide (Lasix) 40 mg IVPUSH BID [facility] Last Admin: 02/04/17 08:52 Dose: 40 mg Ceftriaxone Sodium/Dextrose 1 (gm/ Premix) 50 mls @ 200 mls/hr IV Q24H [facility] Last Admin: 02/04/17 08:52 Dose: 200 mls/hr Azithromycin 500 mg/ Sodium (Chloride) 250 mls @ 250 mls/hr IV Q24H [facility] Last Admin: 02/03/17 15:35 Dose: 250 mls/hr Metoprolol Tartrate (Lopressor) 25 mg PO BID [facility] Last Admin: 02/04/17 08:52 Dose: 25 mg Paroxetine HCl (Paxil) 10 mg PO DAILY [facility] Last Admin: 02/04/17 08:51 Dose: 10 mg Namenda Xr 28 Mg 1 each PO DAILY [facility] Last Admin: 02/04/17 09:45 Dose: Not Given Anoro Ellipta Umeclidinium/Vilanterol 62.5/25 1 each INH DAILY [facility] Last Admin: 02/04/17 08:56 Dose: 1 each Sodium Chloride (Saline Flush) 2.5 ml FLUSH ASDIRECTED PRN PRN Reason: Keep Vein Open Sodium Chloride (Saline Flush) 10 ml FLUSH ASDIRECTED PRN PRN Reason: Keep Vein Open Sodium Chloride (Saline Flush) 2.5 ml FLUSH ASDIRECTED PRN PRN Reason: Keep Vein Open Sodium Chloride (Saline Flush) 10 ml FLUSH ASDIRECTED PRN PRN Reason: Keep Vein Open Sodium Chloride (Saline Flush) 2.5 ml FLUSH ASDIRECTED PRN PRN Reason: Keep Vein Open Warfarin Sodium (Coumadin) 5 mg PO SUTUTHSA@2100 [facility] Last Admin: 02/02/17 20:54 Dose: 5 mg Warfarin Sodium (Coumadin) 2.5 mg PO MOWEFR@2100 [facility] Last Admin: 02/03/17 22:08 Dose: 2.5 mg Discontinued Medications Albuterol (Proventil Neb Soln) 2.5 mg NEB Q2H PRN PRN Reason: Shortness Of Breath/wheezing Albuterol (Ventolin Hfa) 0 gm INH Q6H PRN PRN Reason: Dyspnea Sodium Chloride (Normal Saline) 1,000 mls @ 125 mls/hr IV .Bolus ONE Stop: 02/02/17 18:28 Last Admin: 02/02/17 11:35 Dose: 125 mls/hr Levofloxacin/Dextrose 750 mg/ (Premix) 150 mls @ 100 mls/hr IV ONETIME ONE Stop: 02/02/17 14:02 Last Admin: 02/02/17 13:36 Dose: 100 mls/hr Lisinopril (Prinivil) 5 mg PO DAILY [facility] Last Admin: 02/04/17 08:51 Dose: 5 mg - Exam General: Reports: Alert, Oriented HEENT: Reports: Pupils Equal, EOMI Neck: Reports: Supple Lungs: Reports: Decreased Breath Sounds Cardiovascular: Reports: Regular Rate, Regular Rhythm Back Exam: Reports: Normal Inspection Extremities: Normal Inspection Skin: Reports: Warm, Dry, Intact Neurological: Reports: No New Focal Deficit Psy/Mental Status: Reports: Normal Affect, Normal Mood *Q Meaningful Use (DIS) - VTE *Q VTE Criteria *Q: - Stroke *Q Stroke Criteria *Q: - AMI *Q AMI Criteria *Q:
[2017-02-04 11:47] VITALS: BP 104/44
[2017-02-05] MEDS ORDERED: amLODIPine 5 MG Tab PO SCH (09:00)
--- NOTE | 2017-02-05 15:07 | ECHO ---
EXAM DATE: 02/02/17 PATIENT'S AGE: 71 The echocardiogram report can be seen in this patient's EMR (Electronic Medical Record) in the Reports section. The report has also been scanned into PACs. [facility]
== END 2017-02-04 15:00 | disposition home health service (06) | DRG 195 ==
LOC: MW.ED 10:23 → MW.MS 12:44 → OBSVTOIN 15:45
PROVIDERS: ADMIT Internal Medicine; ATTEND Internal Medicine
DX: J18.9 Pneumonia, unspecified organism (principal); J90 Pleural effusion, not elsewhere classified; N39.0 Urinary tract infection, site not specified; I50.9 Heart failure, unspecified; I48.2 Chronic atrial fibrillation; I10 Essential (primary) hypertension; F32.9 Major depressive disorder, single episode, unspecified; J44.9 Chronic obstructive pulmonary disease, unspecified; G30.9 Alzheimer's disease, unspecified; F02.80 Dementia in other diseases classified elsewhere, unspecified severity, without behavioral disturbance, psychotic disturbance, mood disturbance, and anxiety; F41.8 Other specified anxiety disorders; R53.1 Weakness; Z87.891 Personal history of nicotine dependence; Z79.899 Other long term (current) drug therapy; R06.02 Shortness of breath
CPT/HCPCS: 70450; 71010; 80053; 81001; 82140; 83735; 83880; 84484; 85025; 85610; 87040 ×2; 87086; 87804 ×2; 93005; 96365; 96366; 99285; J1956; J7040; 36415; 80048; 84100; 93306; A9270-GY; J0456; J0696; J1940; J7050

== ENCOUNTER 2017-12-10 20:09 | Inpatient (IN) | payer MEDICARE, BC ==
[2017-12-10] MEDS ORDERED: Sodium Chloride 0.9% 10 ML Syringe FLUSH PRN (20:15)
[2017-12-10] MEDS ORDERED: Sodium Chloride 0.9% 2.5 ML Syringe FLUSH PRN (20:15)
[2017-12-10] MEDS ORDERED: methylPREDNISolone Sodium Succinate 125 MG/2 ML SDV IVPUSH ONE (20:17)
[2017-12-10] MEDS ORDERED: Albuterol/Ipratropium 3.0-0.5 MG/3 ML Neb Soln NEB ONE (20:17)
--- NOTE | 2017-12-10 20:17 | EDM.PDOC ---
ED HPI GENERAL MEDICAL PROBLEM - General Chief Complaint: Respiratory Problem Stated Complaint: PT HAS TIGHTNESS IN CHEST Time Seen by Provider: 12/10/17 20:14 Source of Information: Reports: Patient History Limitations: Reports: No Limitations - History of Present Illness INITIAL COMMENTS - FREE TEXT/NARRATIVE: HISTORY AND PHYSICAL: History of present illness: Patient is a 72-year-old male who presents to the emergency room from [facility], [place] with complaints of cough, shortness of breath and low-grade fever. Nursing staff had been making their rounds and had noted that the patient had a hoarse dry cough, diminished lung sounds and appeared to be using his ancillary muscles to work of breathing. Patient has Alzheimers dementia and does not communicate really verbally. Unable to ask Chris his symptoms. Daughter is at bedside and is able to answer questions. Patient has a past medical history of hypertension, COPD, CHF, Alzheimer's, dementia, anxiety, depression and atrial fibrillation. Review of systems: As per history of present illness and below otherwise all systems reviewed and negative. Past medical history: As per history of present illness and as reviewed below otherwise noncontributory. Surgical history: As per history of present illness and as reviewed below otherwise noncontributory. Social history: No reported history of drug or alcohol abuse. Family history: As per history of present illness and as reviewed below otherwise noncontributory. Physical exam: General: Well-developed, well-nourished and pleasant 72-year-old male. Alert and appropriate for self, he does have Alzheimers dementia (does not communicate with appropriate verbal response- normal patient variance). Nontoxic appearing and in no acute distress. HEENT: Atraumatic, normocephalic, pupils equal and reactive bilaterally, negative for conjunctival pallor or scleral icterus, mucous membranes moist, throat clear, neck supple, nontender, trachea midline. No drooling or trismus noted. No meningeal signs Lungs: Diminished throughout with fine expiratory wheezing noted to the bases, dry nonproductive cough noted, chest nontender. Heart: S1S2, regular rate and rhythm without overt murmur Abdomen: Soft, nondistended, nontender. Negative for masses or hepatosplenomegaly. Negative for costovertebral tenderness. Pelvis: Stable nontender. Genitourinary: Deferred. Rectal: Deferred. Skin: Intact, warm, dry. No lesions or rashes noted. Extremities: Atraumatic, moves all extremities per self, negative for cords or calf pain. Neurovascular unremarkable. Neuro: Awake, alert, oriented. Cranial nerves II through XII unremarkable. Cerebellum unremarkable. Motor and sensory unremarkable throughout. Exam nonfocal. Notes: X-ray shows a small pleural effusion with atelectasis and/or infiltrate of the left lung base, elevated WBC. Blood cultures obtained. Dr Abel, Hospitalist, was paged at this time for admission. He is agreeable to keeping this patient as inpatient for IV antibiotics and further evaluation and monitoring. Diagnostics: CBC, CMP, UA, BNP, Troponin, EKG, Chest Xray, Influenza Therapeutics: Solu-Medrol, Duo Neb, Levaquin, Zosyn, and Vancomycin Impression: Left Lower Lobe Pneumonia Plan: Inpatient admission Definitive disposition and diagnosis as appropriate pending reevaluation and review of above. Onset: Today - Related Data Allergies Allergy/AdvReac Type Severity Reaction Status Date / Time No Known Allergies Allergy Verified 12/10/17 20:25 Home Meds: Home Meds Albuterol [IJD: Ventolin HFA] 2 puff INH Q6H PRN 10/15/15 [History] Donepezil HCl [Aricept] 10 mg PO DAILY 10/15/15 [History] Memantine HCl [Namenda Xr] 28 mg PO DAILY 10/15/15 [History] Metoprolol Tartrate 25 mg PO BID 10/15/15 [History] PARoxetine HCl [Paxil] 10 mg PO DAILY 10/15/15 [History] Warfarin Sodium [Jantoven] 2.5 mg PO MOWEFR@209910/15/15 [History] Umeclidinium Brm/Vilanterol Tr [Anoro Ellipta 62.5-25 MCG] 1 inh IH DAILY [History] Warfarin [Coumadin] 5 mg PO SUTUTHSA@2100 02/02/17 [History] Azithromycin 500 mg PO DAILY #5 tablet 02/04/17 [Rx] Past Medical History - Past Health History Medical/Surgical History: Denies Medical/Surgical History Cardiovascular History: Reports: Afib, Hypertension Respiratory History: Reports: COPD Genitourinary History: Reports: Urinary Incontinence Neurological History: Reports: Alzheimers Disease Psychiatric History: Reports: Alzheimers Disease, Anxiety, Dementia, Depression Dermatologic History: Reports: Other (See Below) Other Dermatologic History: dry skin - Infectious Disease History Infectious Disease History: Reports: None Social & Family History - Family History Family Medical History: Unobtainable - Caffeine Use Caffeine Use: Reports: Coffee ED ROS GENERAL - Review of Systems Review Of Systems: ROS reveals no pertinent complaints other than HPI. ED EXAM, GENERAL - Physical Exam Exam: See Below (See dictation) Course - Vital Signs Last Recorded V/S: Last Vital Signs Temp 97.8 F 12/10/17 20:09 Pulse 73 12/10/17 20:09 Resp 32 H 12/10/17 20:09 BP 129/72 12/10/17 20:09 Pulse Ox 93 L 12/10/17 20:09 - Orders/Labs/Meds Orders: Active Orders 24 hr Category Date Time Status Admission Status [Patient Status] [ADT] Stat ADT 12/10/17 21:16 Ordered Cardiac Monitoring [RC] . DIRECTED Care 12/10/17 21:16 Ordered EKG Documentation Completion [RC] STAT Care 12/10/17 20:15 Active RT Aerosol Therapy [RC] ASDIRECTED Care 12/10/17 20:18 Active Chest 1V Frontal [CR] Stat Exams 12/10/17 20:15 Taken CULTURE BLOOD [BC] Stat Lab 12/10/17 20:59 Ordered CULTURE BLOOD [BC] Stat Lab 12/10/17 20:59 Ordered Levofloxacin/Dextrose 5%-Water [Levaquin in D5W 750 MG/ Med 12/10/17 21:07 Ordered 150 ML] 750 mg Premix Bag 1 bag IV ONETIME Piperacillin/Tazobactam [Piperacil-Tazobact] 3.375 gm Med 12/10/17 21:07 Ordered Sodium Chloride 0.9% [Normal Saline] 50 ml IV ONETIME Sodium Chloride 0.9% [Saline Flush] Med 12/10/17 20:15 Active 10 ml FLUSH ASDIRECTED PRN Sodium Chloride 0.9% [Saline Flush] Med 12/10/17 20:15 Active 2.5 ml FLUSH ASDIRECTED PRN Vancomycin [Vancocin] 1 gm Med 12/10/17 21:07 Ordered Sodium Chloride 0.9% [Normal Saline] 250 ml IV ONETIME Blood Culture x2 Reflex Set [OM.PC] Stat Oth 12/10/17 20:59 Ordered Saline Lock Insert [OM.PC] Stat Oth 12/10/17 20:15 Ordered Medication Orders Levofloxacin/Dextrose 750 mg/ (Premix) 150 mls @ 100 mls/hr IV ONETIME ONE Stop: 12/10/17 22:36 Piperacillin Sod/Tazobactam (Sod 3.375 gm/ Sodium Chloride) 50 mls @ 100 mls/ hr IV ONETIME ONE Stop: 12/10/17 21:36 Vancomycin HCl 1 gm/ Sodium (Chloride) 250 mls @ 166 mls/hr IV ONETIME ONE Stop: 12/10/17 22:37 Sodium Chloride (Saline Flush) 10 ml FLUSH ASDIRECTED PRN PRN Reason: Keep Vein Open Sodium Chloride (Saline Flush) 2.5 ml FLUSH ASDIRECTED PRN PRN Reason: Keep Vein Open Labs: Laboratory Tests 12/10/17 12/10/17 12/10/17 Range/Units 20:26 20:26 20:26 WBC 13.18 H (4.0-11.0) K/uL RBC 3.98 L (4.50-5.90) M/uL Hgb 12.0 L (13.0-17.0) g/dL Hct 37.0 L (38.0-50.0) % MCV 93.0 (80.0-98.0) fL MCH 30.2 (27.0-32.0) pg MCHC 32.4 (31.0-37.0) g/dL RDW Std Deviation 52.3 (28.0-62.0) fl RDW Coeff of Yadiel 15 (11.0-15.0) % Plt Count 217 (150-400) K/uL MPV 10.70 (7.40-12.00) fL Neut % (Auto) 74.9 (48.0-80.0) % Lymph % (Auto) 12.0 L (16.0-40.0) % Hunt % (Auto) 11.9 (0.0-15.0) % Eos % (Auto) 1.0 (0.0-7.0) % Baso % (Auto) 0.2 (0.0-1.5) % Neut # (Auto) 9.9 H (1.4-5.7) K/uL Lymph # (Auto) 1.6 (0.6-2.4) K/uL Hunt # (Auto) 1.6 H (0.0-0.8) K/uL Eos # (Auto) 0.1 (0.0-0.7) K/uL Baso # (Auto) 0.0 (0.0-0.1) K/uL Nucleated RBC % 0.0 /100WBC Nucleated RBCs # 0 K/uL INR Sodium 140 (136-148) mmol/L Potassium 4.4 (3.5-5.1) mmol/L Chloride 107 (98-107) mmol/L Carbon Dioxide 25.4 (21.0-32.0) mmol/L BUN 31 H (7.0-18.0) mg/dL Creatinine 1.3 (0.8-1.3) mg/dL Est Cr Clr Drug Dosing TNP Estimated GFR (MDRD) 54.0 ml/min Glucose 135 H (74-106) mg/dL Calcium 8.7 (8.5-10.1) mg/dL Total Bilirubin 1.2 H (0.2-1.0) mg/dL AST 9 L (15-37) IU/L ALT 13 L (14-63) IU/L Alkaline Phosphatase 91 (46-116) U/L Troponin I < 0.050 (0.000-0.056) ng/mL B-Natriuretic Peptide 203 H (<100) PG/ML Total Protein 6.8 (6.4-8.2) g/dL Albumin 2.8 L (3.4-5.0) g/dL Globulin 4.0 H (2.0-3.5) g/dL Albumin/Globulin Ratio 0.7 L (1.3-2.8) 12/10/17 Range/Units 20:26 WBC (4.0-11.0) K/uL RBC (4.50-5.90) M/uL Hgb (13.0-17.0) g/dL Hct (38.0-50.0) % MCV (80.0-98.0) fL MCH (27.0-32.0) pg MCHC (31.0-37.0) g/dL RDW Std Deviation (28.0-62.0) fl RDW Coeff of Yadiel (11.0-15.0) % Plt Count (150-400) K/uL MPV (7.40-12.00) fL Neut % (Auto) (48.0-80.0) % Lymph % (Auto) (16.0-40.0) % Hunt % (Auto) (0.0-15.0) % Eos % (Auto) (0.0-7.0) % Baso % (Auto) (0.0-1.5) % Neut # (Auto) (1.4-5.7) K/uL Lymph # (Auto) (0.6-2.4) K/uL Hunt # (Auto) (0.0-0.8) K/uL Eos # (Auto) (0.0-0.7) K/uL Baso # (Auto) (0.0-0.1) K/uL Nucleated RBC % /100WBC Nucleated RBCs # K/uL INR 1.23 Sodium (136-148) mmol/L Potassium (3.5-5.1) mmol/L Chloride (98-107) mmol/L Carbon Dioxide (21.0-32.0) mmol/L BUN (7.0-18.0) mg/dL Creatinine (0.8-1.3) mg/dL Est Cr Clr Drug Dosing Estimated GFR (MDRD) ml/min Glucose (74-106) mg/dL Calcium (8.5-10.1) mg/dL Total Bilirubin (0.2-1.0) mg/dL AST (15-37) IU/L ALT (14-63) IU/L Alkaline Phosphatase (46-116) U/L Troponin I (0.000-0.056) ng/mL B-Natriuretic Peptide (<100) PG/ML Total Protein (6.4-8.2) g/dL Albumin (3.4-5.0) g/dL Globulin (2.0-3.5) g/dL Albumin/Globulin Ratio (1.3-2.8) Meds: Medications Generic Name Dose Route Start Last Admin Trade Name Freq PRN Reason Stop Dose Admin Levofloxacin/Dextrose 750 mg/ 150 mls @ 100 mls/hr 12/10/17 21:07 Premix IV 12/10/17 22:36 ONETIME ONE Piperacillin Sod/Tazobactam 50 mls @ 100 mls/hr 12/10/17 21:07 Sod 3.375 gm/ Sodium Chloride IV 12/10/17 21:36 ONETIME ONE Vancomycin HCl 1 gm/ Sodium 250 mls @ 166 mls/hr 12/10/17 21:07 Chloride IV 12/10/17 22:37 ONETIME ONE Sodium Chloride 10 ml 12/10/17 20:15 Saline Flush FLUSH ASDIRECTED PRN Keep Vein Open Sodium Chloride 2.5 ml 12/10/17 20:15 Saline Flush FLUSH ASDIRECTED PRN Keep Vein Open Discontinued Medications Generic Name Dose Route Start Last Admin Trade Name Freq PRN Reason Stop Dose Admin Albuterol/Ipratropium 3 ml 12/10/17 20:17 12/10/17 20:50 Duoneb 3.0-0.5 Mg/3 Ml NEB 12/10/17 20:18 3 ml ONETIME ONE Administration Methylprednisolone Sodium Succinate 125 mg 12/10/17 20:17 12/10/17 20:39 Solu-Medrol IVPUSH 12/10/17 20:18 125 mg ONETIME ONE Administration Departure - Departure Time of Disposition: 21:19 Disposition: Admitted As Inpatient 64 Clinical Impression: Left lower lobe pneumonia Qualifiers: Pneumonia type: due to unspecified organism Qualified Code(s): J18.1 - Lobar pneumonia, unspecified organism - Discharge Information Forms: ED Department Discharge - My Orders Last 24 Hours: My Active Orders 12/10/17 20:15 EKG Documentation Completion [RC] STAT Chest 1V Frontal [CR] Stat Sodium Chloride 0.9% [Saline Flush] 10 ml FLUSH ASDIRECTED PRN Sodium Chloride 0.9% [Saline Flush] 2.5 ml FLUSH ASDIRECTED PRN Saline Lock Insert [OM.PC] Stat 12/10/17 20:18 RT Aerosol Therapy [RC] ASDIRECTED 12/10/17 20:59 CULTURE BLOOD [BC] Stat CULTURE BLOOD [BC] Stat Blood Culture x2 Reflex Set [OM.PC] Stat 12/10/17 21:07 Levofloxacin/Dextrose 5%-Water [Levaquin in D5W 750 MG/150 ML] 750 mg Premix Bag 1 bag IV ONETIME Piperacillin/Tazobactam [Piperacil-Tazobact] 3.375 gm Sodium Chloride 0.9% [ Normal Saline] 50 ml IV ONETIME Vancomycin [Vancocin] 1 gm Sodium Chloride 0.9% [Normal Saline] 250 ml IV ONETIME 12/10/17 21:16 Admission Status [Patient Status] [ADT] Stat Cardiac Monitoring [RC] . DIRECTED - Assessment/Plan Last 24 Hours: My Active Orders 12/10/17 20:15 EKG Documentation Completion [RC] STAT Chest 1V Frontal [CR] Stat Sodium Chloride 0.9% [Saline Flush] 10 ml FLUSH ASDIRECTED PRN Sodium Chloride 0.9% [Saline Flush] 2.5 ml FLUSH ASDIRECTED PRN Saline Lock Insert [OM.PC] Stat 12/10/17 20:18 RT Aerosol Therapy [RC] ASDIRECTED 12/10/17 20:59 CULTURE BLOOD [BC] Stat CULTURE BLOOD [BC] Stat Blood Culture x2 Reflex Set [OM.PC] Stat 12/10/17 21:07 Levofloxacin/Dextrose 5%-Water [Levaquin in D5W 750 MG/150 ML] 750 mg Premix Bag 1 bag IV ONETIME Piperacillin/Tazobactam [Piperacil-Tazobact] 3.375 gm Sodium Chloride 0.9% [ Normal Saline] 50 ml IV ONETIME Vancomycin [Vancocin] 1 gm Sodium Chloride 0.9% [Normal Saline] 250 ml IV ONETIME 12/10/17 21:16 Admission Status [Patient Status] [ADT] Stat Cardiac Monitoring [RC] . DIRECTED
[2017-12-10 20:55] LABS: CHLORIDE,CL 107 mmol/L (98-107); SODIUM,NA 140 mmol/L (136-148)
[2017-12-10] MEDS ORDERED: Piperacillin/Tazobactam 3.375 GM in Sodium Chloride 0.9% 50 ML IV ONE (21:07)
[2017-12-10] MEDS ORDERED: Levofloxacin/Dextrose 5%-Water 750 MG in Premix Bag 1 BAG IV ONE (21:07)
[2017-12-10] MEDS ORDERED: Albuterol/Ipratropium 3.0-0.5 MG/3 ML Neb Soln NEB PRN (23:37)
[2017-12-11] MEDS: Piperacillin/Tazobactam 3.375 GM in Sodium Chloride 0.9% 50 ML IV SCH ×2 (00:23→05:10)
[2017-12-11] MEDS: Levofloxacin/Dextrose 5%-Water 750 MG in Premix Bag 1 BAG IV SCH (00:58)
[2017-12-11 05:52] LABS: CHLORIDE,CL 108 mmol/L (98-107); SODIUM,NA 141 mmol/L (136-148)
[2017-12-11] MEDS ORDERED: Piperacillin/Tazobactam 3.375 GM in Sodium Chloride 0.9% 50 ML IV SCH (06:00)
[2017-12-11] MEDS: Metoprolol Tartrate 25 MG Tab PO SCH ×2 (08:22→21:02)
--- NOTE | 2017-12-11 10:35 | PCM.HP ---
H&P History of Present Illness - General Date of Service: 12/11/17 Admit Problem/Dx: Admission Diagnosis/Problem Admission Diagnosis/Problem Pneumonia - History of Present Illness Initial Comments - Free Text/Narative: Chris Mccollum is a 72 y/o male with history of alzheimer's dementia presenting form [facility] for worsening shortness of breath, cough. The patient is unable to provide history due to dementia so the information is gathered from medical records and family who was at bedside this morning. A chest xray was performed which showed a left lower lung infiltrate. He was started on Vancomycin, Levaquin and Zosyn. His white count has improved this morning. Has remained afebrile overnight. - Related Data Allergies/Adverse Reactions: Allergies Allergy/AdvReac Type Severity Reaction Status Date / Time No Known Allergies Allergy Verified 12/10/17 20:25 Home Medications: Home Meds Albuterol [IJD: Ventolin HFA] 2 puff INH Q6H PRN 10/15/15 [History] Donepezil HCl [Aricept] 10 mg PO DAILY 10/15/15 [History] Memantine HCl [Namenda Xr] 28 mg PO DAILY 10/15/15 [History] Metoprolol Tartrate 25 mg PO BID 10/15/15 [History] PARoxetine HCl [Paxil] 10 mg PO DAILY 10/15/15 [History] Umeclidinium Brm/Vilanterol Tr [Anoro Ellipta 62.5-25 MCG] 1 inh IH DAILY [History] Warfarin [Coumadin] 2.5 mg PO BEDTIME 02/02/17 [History] Acetaminophen [Tylenol Arthritis Pain] 1 tab PO Q4HR PRN 12/10/17 [History] Bisacodyl [Dulcolax] 1 supp RECTAL ASDIRECTED 12/10/17 [History] Magnesium Hydroxide [Milk of Magnesia] 30 ml PO DAILY PRN 12/10/17 [History] Past Medical History - Past Health History Medical/Surgical History: Denies Medical/Surgical History Cardiovascular History: Reports: Afib, Hypertension Respiratory History: Reports: COPD Genitourinary History: Reports: Urinary Incontinence Neurological History: Reports: Alzheimers Disease Psychiatric History: Reports: Alzheimers Disease, Anxiety, Dementia, Depression Dermatologic History: Reports: Other (See Below) Other Dermatologic History: dry skin - Infectious Disease History Infectious Disease History: Reports: None Social & Family History - Family History Family Medical History: Unobtainable - Tobacco Use Smoking Status *Q: Former Smoker Years of Tobacco use: 50 Used Tobacco, but Quit: Yes Month/Year Tobacco Last Used: 2016 - Caffeine Use Caffeine Use: Reports: Tea - Recreational Drug Use Recreational Drug Use: No H&P Review of Systems - Review of Systems: Review Of Systems: Unable To Obtain (due to patient's dementia) Exam - Exam Exam: See Below - Vital Signs Vital Signs: Last Vital Signs Temp 36.1 C 12/11/17 08:00 Pulse 112 H 12/11/17 08:22 Resp 18 12/11/17 08:00 BP 143/72 H 12/11/17 08:22 Pulse Ox 96 12/11/17 08:15 Weight: 85.321 kg - Exam General: Alert, Other (disoriented to person, time and place.) HEENT: Posterior Pharynx Clear, Pupils Equal, Pupils Reactive Lungs: Other (Bilateral crackles in the bases, left worse than right. No wheezing.) GI/Abdominal Exam: Normal Bowel Sounds, Soft, Non-Tender Extremities: Normal Inspection, Normal Range of Motion, Non-Tender, No Pedal Edema Skin: Warm, Dry - Patient Data Lab Results Last 24 hrs: Laboratory Results - last 24 hr 12/10/17 12/10/17 12/10/17 Range/Units 20:26 20:26 20:26 WBC 13.18 H (4.0-11.0) K/uL RBC 3.98 L (4.50-5.90) M/uL Hgb 12.0 L (13.0-17.0) g/dL Hct 37.0 L (38.0-50.0) % MCV 93.0 (80.0-98.0) fL MCH 30.2 (27.0-32.0) pg MCHC 32.4 (31.0-37.0) g/dL RDW Std Deviation 52.3 (28.0-62.0) fl RDW Coeff of Yadiel 15 (11.0-15.0) % Plt Count 217 (150-400) K/uL MPV 10.70 (7.40-12.00) fL Neut % (Auto) 74.9 (48.0-80.0) % Lymph % (Auto) 12.0 L (16.0-40.0) % Bullock % (Auto) 11.9 (0.0-15.0) % Eos % (Auto) 1.0 (0.0-7.0) % Baso % (Auto) 0.2 (0.0-1.5) % Neut # (Auto) 9.9 H (1.4-5.7) K/uL Lymph # (Auto) 1.6 (0.6-2.4) K/uL Bullock # (Auto) 1.6 H (0.0-0.8) K/uL Eos # (Auto) 0.1 (0.0-0.7) K/uL Baso # (Auto) 0.0 (0.0-0.1) K/uL Nucleated RBC % 0.0 /100WBC Nucleated RBCs # 0 K/uL INR Sodium 140 (136-148) mmol/L Potassium 4.4 (3.5-5.1) mmol/L Chloride 107 (98-107) mmol/L Carbon Dioxide 25.4 (21.0-32.0) mmol/L BUN 31 H (7.0-18.0) mg/dL Creatinine 1.3 (0.8-1.3) mg/dL Est Cr Clr Drug Dosing TNP Estimated GFR (MDRD) 54.0 ml/min Glucose 135 H (74-106) mg/dL Calcium 8.7 (8.5-10.1) mg/dL Total Bilirubin 1.2 H (0.2-1.0) mg/dL AST 9 L (15-37) IU/L ALT 13 L (14-63) IU/L Alkaline Phosphatase 91 (46-116) U/L Troponin I < 0.050 (0.000-0.056) ng/mL B-Natriuretic Peptide 203 H (<100) PG/ML Total Protein 6.8 (6.4-8.2) g/dL Albumin 2.8 L (3.4-5.0) g/dL Globulin 4.0 H (2.0-3.5) g/dL Albumin/Globulin Ratio 0.7 L (1.3-2.8) 12/10/17 12/11/17 12/11/17 Range/Units 20:26 05:25 05:25 WBC 9.98 (4.0-11.0) K/uL RBC 3.84 L (4.50-5.90) M/uL Hgb 11.6 L (13.0-17.0) g/dL Hct 36.3 L (38.0-50.0) % MCV 94.5 (80.0-98.0) fL MCH 30.2 (27.0-32.0) pg MCHC 32.0 (31.0-37.0) g/dL RDW Std Deviation 53.3 (28.0-62.0) fl RDW Coeff of Yadiel 15 (11.0-15.0) % Plt Count 199 (150-400) K/uL MPV 11.20 (7.40-12.00) fL Neut % (Auto) 91.0 H (48.0-80.0) % Lymph % (Auto) 6.9 L (16.0-40.0) % Bullock % (Auto) 2.0 (0.0-15.0) % Eos % (Auto) 0.0 (0.0-7.0) % Baso % (Auto) 0.1 (0.0-1.5) % Neut # (Auto) 9.1 H (1.4-5.7) K/uL Lymph # (Auto) 0.7 (0.6-2.4) K/uL Bullock # (Auto) 0.2 (0.0-0.8) K/uL Eos # (Auto) 0.0 (0.0-0.7) K/uL Baso # (Auto) 0.0 (0.0-0.1) K/uL Nucleated RBC % 0.0 /100WBC Nucleated RBCs # 0 K/uL INR 1.23 1.18 Sodium (136-148) mmol/L Potassium (3.5-5.1) mmol/L Chloride (98-107) mmol/L Carbon Dioxide (21.0-32.0) mmol/L BUN (7.0-18.0) mg/dL Creatinine (0.8-1.3) mg/dL Est Cr Clr Drug Dosing Estimated GFR (MDRD) ml/min Glucose (74-106) mg/dL Calcium (8.5-10.1) mg/dL Total Bilirubin (0.2-1.0) mg/dL AST (15-37) IU/L ALT (14-63) IU/L Alkaline Phosphatase (46-116) U/L Troponin I (0.000-0.056) ng/mL B-Natriuretic Peptide (<100) PG/ML Total Protein (6.4-8.2) g/dL Albumin (3.4-5.0) g/dL Globulin (2.0-3.5) g/dL Albumin/Globulin Ratio (1.3-2.8) 12/11/17 Range/Units 05:25 WBC (4.0-11.0) K/uL RBC (4.50-5.90) M/uL Hgb (13.0-17.0) g/dL Hct (38.0-50.0) % MCV (80.0-98.0) fL MCH (27.0-32.0) pg MCHC (31.0-37.0) g/dL RDW Std Deviation (28.0-62.0) fl RDW Coeff of Yadiel (11.0-15.0) % Plt Count (150-400) K/uL MPV (7.40-12.00) fL Neut % (Auto) (48.0-80.0) % Lymph % (Auto) (16.0-40.0) % Bullock % (Auto) (0.0-15.0) % Eos % (Auto) (0.0-7.0) % Baso % (Auto) (0.0-1.5) % Neut # (Auto) (1.4-5.7) K/uL Lymph # (Auto) (0.6-2.4) K/uL Bullock # (Auto) (0.0-0.8) K/uL Eos # (Auto) (0.0-0.7) K/uL Baso # (Auto) (0.0-0.1) K/uL Nucleated RBC % /100WBC Nucleated RBCs # K/uL INR Sodium 141 (136-148) mmol/L Potassium 4.6 (3.5-5.1) mmol/L Chloride 108 H (98-107) mmol/L Carbon Dioxide 25.6 (21.0-32.0) mmol/L BUN 26 H (7.0-18.0) mg/dL Creatinine 1.1 (0.8-1.3) mg/dL Est Cr Clr Drug Dosing 68.50 Estimated GFR (MDRD) > 60.0 ml/min Glucose 174 H (74-106) mg/dL Calcium 8.9 (8.5-10.1) mg/dL Total Bilirubin (0.2-1.0) mg/dL AST (15-37) IU/L ALT (14-63) IU/L Alkaline Phosphatase (46-116) U/L Troponin I (0.000-0.056) ng/mL B-Natriuretic Peptide (<100) PG/ML Total Protein (6.4-8.2) g/dL Albumin (3.4-5.0) g/dL Globulin (2.0-3.5) g/dL Albumin/Globulin Ratio (1.3-2.8) Result Diagrams: 12/11/17 05:25 12/11/17 05:25 Patric Results Last 24 hrs: Microbiology 12/10/17 20:40 Influenza Type A Antigen Screen - Final Nasopharyngeal Swab NEGATIVE INFLUENZA A VIRUS AG Influenza Type B Antigen Screen - Final NEGATIVE INFLUENZA B VIRUS AG Problem List Initiated/Reviewed/Updated: Yes Orders Last 24hrs: Active Orders 24 hr Category Date Time Status Patient Status [ADT] Stat ADT 12/10/17 21:19 Active Cardiac Monitoring [RC] . DIRECTED Care 12/10/17 21:16 Active EKG Documentation Completion [RC] STAT Care 12/10/17 20:15 Active RT Aerosol Therapy [RC] ASDIRECTED Care 12/10/17 23:38 Active Regular Diet [DIET] Diet 12/11/17 Breakfast Active Chest 1V Frontal [CR] Stat Exams 12/10/17 20:15 Taken CULTURE BLOOD [BC] Stat Lab 12/10/17 21:29 Received CULTURE BLOOD [BC] Stat Lab 12/10/17 21:35 Received CULTURE SPUTUM + SMEAR [RM] Routine Lab 12/10/17 23:24 Ordered UA W/MICROSCOPIC [URIN] Routine Lab 12/11/17 09:38 Ordered VANCOMYCIN TROUGH [CHEM] Routine Lab 12/13/17 08:00 Ordered Albuterol/Ipratropium [DuoNeb 3.0-0.5 MG/3 ML] Med 12/10/17 23:37 Active 3 ml NEB Q6HRRT PRN Levofloxacin/Dextrose 5%-Water [Levaquin in D5W 750 MG/ Med 12/11/17 01:00 Active 150 ML] 750 mg Premix Bag 1 bag IV Q24H Metoprolol Tartrate [Lopressor] Med 12/11/17 09:00 Active 25 mg PO Q12H Piperacillin/Tazobactam [Piperacil-Tazobact] 4.5 gm Med 12/11/17 12:00 Active Sodium Chloride 0.9% [Normal Saline] 100 ml IV Q6H Sodium Chloride 0.9% [Saline Flush] Med 12/10/17 20:15 Active 10 ml FLUSH ASDIRECTED PRN Sodium Chloride 0.9% [Saline Flush] Med 12/10/17 20:15 Active 2.5 ml FLUSH ASDIRECTED PRN Vancomycin 1,250 mg Med 12/11/17 09:00 Active Sodium Chloride 0.9% [Normal Saline] 250 ml IV Q12H Vancomycin Pharmacy to Dose [Pharmacy to Dose - Med 12/10/17 23:45 Active Vancomycin] 1 dose .XX ASDIRECTED Blood Culture x2 Reflex Set [OM.PC] Stat Oth 12/10/17 20:59 Ordered Saline Lock Insert [OM.PC] Stat Oth 12/10/17 20:15 Ordered Code Status [Resuscitation Status] Routine Resus Stat 12/11/17 08:59 Ordered Medication Orders Albuterol/Ipratropium (Duoneb 3.0-0.5 Mg/3 Ml) 3 ml NEB Q6HRRT PRN PRN Reason: Shortness of Breath Levofloxacin/Dextrose 750 mg/ (Premix) 150 mls @ 100 mls/hr IV Q24H [facility] Last Admin: 12/11/17 00:58 Dose: Not Given Vancomycin HCl 1,250 mg/ (Sodium Chloride) 250 mls @ 166.667 mls/hr IV Q12H [facility] Last Admin: 12/11/17 09:13 Dose: 166.667 mls/hr Piperacillin Sod/Tazobactam (Sod 4.5 gm/ Sodium Chloride) 100 mls @ 200 mls/hr IV Q6H [facility] Metoprolol Tartrate (Lopressor) 25 mg PO Q12H [facility] Last Admin: 12/11/17 08:22 Dose: 25 mg Sodium Chloride (Saline Flush) 10 ml FLUSH ASDIRECTED PRN PRN Reason: Keep Vein Open Sodium Chloride (Saline Flush) 2.5 ml FLUSH ASDIRECTED PRN PRN Reason: Keep Vein Open Vancomycin HCl (Pharmacy To Dose - Vancomycin) 1 dose .XX ASDIRECTED SHRUTHI Assessment/Plan Comment:: Assessment: 1. Health care associated pneumonia 2. Leukocytosis due to above 3. PMH atrial fibrillation, alzheimer's dementia Plan: 1. Admit as observation to medical floor. 2. Vitals, I/O's per floor routinel 3. Activity: up with assistance 4. Diet: regular 5. DVT Prophylaxis: Lovenox 6. Code status: DNR/DNI 1. HCAP- will continue with vancomycin, levaquin and zosyn for now. Ordered Duonebs PRN. 2. Atrial fibrillation- rate controlled. Continue with home medications: metoprolol and warfarin. Will check INR. 3. Alzheimer's dementia- continue home medications. Dispo: possibly tomorrow.
[2017-12-11] MEDS ORDERED: Albuterol 6.7 GM Inhaler INH PRN (11:19)
[2017-12-11] MEDS ORDERED: Magnesium Hydroxide 400 MG/5 ML Susp 30 ML Cup PO PRN (11:19)
[2017-12-11] MEDS ORDERED: Acetaminophen 500 MG Tab PO PRN (11:19)
[2017-12-11] MEDS ORDERED: Albuterol/Ipratropium 3.0-0.5 MG/3 ML Neb Soln NEB PRN (11:26)
[2017-12-11] MEDS ORDERED: Bisacodyl 10 MG Supp RECTAL SCH (11:30)
[2017-12-11] MEDS: Enoxaparin 40 MG/0.4 ML Syringe SUBCUT SCH (12:16)
[2017-12-11] MEDS: Donepezil 10 MG Tab PO SCH (12:16)
[2017-12-11] MEDS: Piperacillin/Tazobactam 4.5 GM in Sodium Chloride 0.9% 100 ML IV SCH ×3 (12:17→23:11)
--- NOTE | 2017-12-11 12:55 | CR ---
EXAM DATE: 12/10/17 PATIENT'S AGE: 72 Patient: JOSSELINE VILLEGAS Facility: [place], [place] Site . Site : 1945 Study: XRay Chest [id number] 8:47:58 PM Ordering Physician: Doctor Mojica Final Report: INDICATION: Cough and shortness of breath TECHNIQUE: Chest 1 views COMPARISON: 02/21/2017 FINDINGS: Cardiovascular and mediastinum: Heart size and vasculature are normal in caliber and appearance. Lungs and pleural spaces: There is no defined opacity obscuring the left lung base. Remainder of the lungs and pleural spaces are clear. No pneumothorax. Bones and soft tissues: No significant findings. IMPRESSION: Small pleural effusion with atelectasis and/or infiltrate in the left lung base. Remainder of the exam is unremarkable. Dictated by Lopez Kirkland MD @ Dec 10 2017 8:57PM (Electronic Signature) Report Signed by Proxy. NILTON
[2017-12-11] MEDS ORDERED: Warfarin 5 MG Tab PO SCH (14:00)
[2017-12-11] MEDS ORDERED: Metoprolol Tartrate 25 MG Tab PO SCH (21:00)
[2017-12-12] MEDS: Levofloxacin/Dextrose 5%-Water 750 MG in Premix Bag 1 BAG IV SCH (01:44)
[2017-12-12] MEDS: Piperacillin/Tazobactam 4.5 GM in Sodium Chloride 0.9% 100 ML IV SCH ×3 (05:03→17:03)
[2017-12-12] MEDS ORDERED: Sodium Chloride 0.9% 1,000 ML IV SCH (08:15)
[2017-12-12] MEDS: Metoprolol Tartrate 25 MG Tab PO SCH ×2 (08:17→20:12)
[2017-12-12] MEDS: Donepezil 10 MG Tab PO SCH (08:18)
--- NOTE | 2017-12-12 08:36 | PCM.PN ---
- General Info Date of Service: 12/12/17 Subjective Update: Patient remained afebrile overnight. However, his WBC is trending up. Blood cultures have remained negative. Urine was clean. Patient has dementia. - Patient Data Vitals - Most Recent: Last Vital Signs Temp 36.2 C 12/12/17 08:00 Pulse 73 12/12/17 08:17 Resp 16 12/12/17 08:00 BP 137/66 12/12/17 08:17 Pulse Ox 93 L 12/12/17 08:00 Weight - Most Recent: 85.321 kg I&O - Last 24 Hours: Intake & Output 12/11/17 12/12/17 12/12/17 22:59 06:59 14:59 Intake Total 792 400 Output Total 200 Balance 792 200 Lab Results Last 24 Hours: Laboratory Results - last 24 hr 12/11/17 12/12/17 12/12/17 Range/Units 18:57 04:35 04:35 WBC 15.80 H (4.0-11.0) K/uL RBC 3.56 L (4.50-5.90) M/uL Hgb 10.7 L (13.0-17.0) g/dL Hct 33.8 L (38.0-50.0) % MCV 94.9 (80.0-98.0) fL MCH 30.1 (27.0-32.0) pg MCHC 31.7 (31.0-37.0) g/dL RDW Std Deviation 52.7 (28.0-62.0) fl RDW Coeff of Yadiel 15 (11.0-15.0) % Plt Count 220 (150-400) K/uL MPV 11.20 (7.40-12.00) fL Neut % (Auto) 81.9 H (48.0-80.0) % Lymph % (Auto) 9.7 L (16.0-40.0) % [place] % (Auto) 8.0 (0.0-15.0) % Eos % (Auto) 0.2 (0.0-7.0) % Baso % (Auto) 0.2 (0.0-1.5) % Neut # (Auto) 12.9 H (1.4-5.7) K/uL Lymph # (Auto) 1.5 (0.6-2.4) K/uL [place] # (Auto) 1.3 H (0.0-0.8) K/uL Eos # (Auto) 0.0 (0.0-0.7) K/uL Baso # (Auto) 0.0 (0.0-0.1) K/uL Nucleated RBC % 0.0 /100WBC Nucleated RBCs # 0 K/uL Sodium 144 (136-148) mmol/L Potassium 4.4 (3.5-5.1) mmol/L Chloride 111 H (98-107) mmol/L Carbon Dioxide 26.6 (21.0-32.0) mmol/L BUN 35 H (7.0-18.0) mg/dL Creatinine 1.2 (0.8-1.3) mg/dL Est Cr Clr Drug Dosing 62.79 mL/min Estimated GFR (MDRD) 59.2 ml/min Glucose 119 H (74-106) mg/dL Calcium 8.8 (8.5-10.1) mg/dL Urine Color YELLOW Urine Appearance CLEAR Urine pH 5.5 (5.0-8.0) Ur Specific [place] >= 1.030 (1.001-1.035) Urine Protein NEGATIVE (NEGATIVE) mg/dL Urine Glucose (UA) NEGATIVE (NEGATIVE) mg/dL Urine Ketones NEGATIVE (NEGATIVE) mg/dL Urine Occult Blood NEGATIVE (NEGATIVE) Urine Nitrite NEGATIVE (NEGATIVE) Urine Bilirubin NEGATIVE (NEGATIVE) Urine Urobilinogen 0.2 (<2.0) EU/dL Ur Leukocyte Esterase NEGATIVE (NEGATIVE) Urine RBC 0-1 (0-2/HPF) Urine WBC 0-1 (0-5/HPF) Ur Epithelial Cells RARE (NONE-FEW) Urine Bacteria RARE (NEGATIVE) Patric Results Last 24 Hours: Microbiology 12/10/17 21:29 Aerobic Blood Culture - Preliminary Blood - Venous NO GROWTH AFTER 1 DAY Anaerobic Blood Culture - Preliminary NO GROWTH AFTER 1 DAY 12/10/17 21:35 Aerobic Blood Culture - Preliminary Blood - Venous - Lab Draw NO GROWTH AFTER 1 DAY Anaerobic Blood Culture - Preliminary NO GROWTH AFTER 1 DAY Med Orders - Current: Current Medications Acetaminophen (Tylenol Extra Strength) 500 mg PO Q4H PRN PRN Reason: Pain Albuterol (Proventil Hfa) 0 gm INH Q6H PRN PRN Reason: Dyspnea Albuterol/Ipratropium (Duoneb 3.0-0.5 Mg/3 Ml) 3 ml NEB Q6HRRT PRN PRN Reason: Shortness of Breath Albuterol/Ipratropium (Duoneb 3.0-0.5 Mg/3 Ml) 3 ml NEB Q6HRRT PRN PRN Reason: Shortness of Breath Bisacodyl (Dulcolax) 10 mg RECTAL ASDIRECTED [facility] Donepezil HCl (Aricept) 10 mg PO DAILY [facility] Last Admin: 12/12/17 08:18 Dose: 10 mg Enoxaparin Sodium (Lovenox) 40 mg SUBCUT Q24H [facility] Last Admin: 12/11/17 12:16 Dose: 40 mg Levofloxacin/Dextrose 750 mg/ (Premix) 150 mls @ 100 mls/hr IV Q24H [facility] Last Admin: 12/12/17 01:44 Dose: 100 mls/hr Vancomycin HCl 1,250 mg/ (Sodium Chloride) 250 mls @ 166.667 mls/hr IV Q12H [facility] Last Admin: 12/12/17 08:17 Dose: 166.667 mls/hr Piperacillin Sod/Tazobactam (Sod 4.5 gm/ Sodium Chloride) 100 mls @ 200 mls/hr IV Q6H [facility] Last Admin: 12/12/17 05:03 Dose: 200 mls/hr Sodium Chloride (Normal Saline) 1,000 mls @ 125 mls/hr IV CONTINUOUS [facility] Magnesium Hydroxide (Milk Of Magnesia) 30 ml PO DAILY PRN PRN Reason: Constipation Metoprolol Tartrate (Lopressor) 25 mg PO Q12H [facility] Last Admin: 12/12/17 08:17 Dose: 25 mg Paroxetine HCl (Paxil) 10 mg PO DAILY [facility] Last Admin: 12/12/17 08:18 Dose: 10 mg Memantine 28 Mg 1 each PO DAILY [facility] Sodium Chloride (Saline Flush) 10 ml FLUSH ASDIRECTED PRN PRN Reason: Keep Vein Open Sodium Chloride (Saline Flush) 2.5 ml FLUSH ASDIRECTED PRN PRN Reason: Keep Vein Open Vancomycin HCl (Pharmacy To Dose - Vancomycin) 1 dose .XX ASDIRECTED [facility] Warfarin Sodium (Coumadin Ask) 1 each PO DAILY@1400 [facility] Last Admin: 12/11/17 14:37 Dose: Not Given Discontinued Medications Albuterol/Ipratropium (Duoneb 3.0-0.5 Mg/3 Ml) 3 ml NEB ONETIME ONE Stop: 12/10/17 20:18 Last Admin: 12/10/17 20:50 Dose: 3 ml Donepezil HCl (Aricept) 10 mg PO DAILY [facility] Levofloxacin/Dextrose 750 mg/ (Premix) 150 mls @ 100 mls/hr IV ONETIME ONE Stop: 12/10/17 22:36 Last Admin: 12/11/17 00:57 Dose: 100 mls/hr Piperacillin Sod/Tazobactam (Sod 3.375 gm/ Sodium Chloride) 50 mls @ 100 mls/ hr IV ONETIME ONE Stop: 12/10/17 21:36 Last Admin: 12/11/17 00:21 Dose: 100 mls/hr Vancomycin HCl 1 gm/ Sodium (Chloride) 250 mls @ 166 mls/hr IV ONETIME ONE Stop: 12/10/17 22:37 Last Admin: 12/10/17 21:30 Dose: 166 mls/hr Piperacillin Sod/Tazobactam (Sod 3.375 gm/ Sodium Chloride) 50 mls @ 100 mls/ hr IV Q6H [facility] Piperacillin Sod/Tazobactam (Sod 3.375 gm/ Sodium Chloride) 50 mls @ 100 mls/ hr IV Q6H [facility] Last Admin: 12/11/17 05:10 Dose: 100 mls/hr Methylprednisolone Sodium Succinate (Solu-Medrol) 125 mg IVPUSH ONETIME ONE Stop: 12/10/17 20:18 Last Admin: 12/10/17 20:39 Dose: 125 mg Metoprolol Tartrate (Lopressor) 25 mg PO BID [facility] Paroxetine HCl (Paxil) 10 mg PO DAILY [facility] Warfarin Sodium (Coumadin) 5 mg PO DAILY@1400 SHRUTHI Stop: 12/11/17 14:01 Last Admin: 12/11/17 14:38 Dose: 5 mg - Exam General: Alert, No Acute Distress, Other (demented) Lungs: Rales (bilateral rales in lower lung hernandez. No wheezing.) Cardiovascular: Regular Rate GI/Abdominal Exam: Normal Bowel Sounds, Soft, Non-Tender, No Distention Extremities: Non-Tender, No Pedal Edema Skin: Warm, Dry - Problem List Review Problem List Initiated/Reviewed/Updated: Yes - My Orders Last 24 Hours: My Active Orders 12/11/17 11:19 Acetaminophen [Tylenol Extra Strength] 500 mg PO Q4H PRN Albuterol [Proventil HFA] 0 gm INH Q6H PRN Magnesium Hydroxide [Milk of Magnesia] 30 ml PO DAILY PRN 12/11/17 11:26 RT Aerosol Therapy [RC] ASDIRECTED Albuterol/Ipratropium [DuoNeb 3.0-0.5 MG/3 ML] 3 ml NEB Q6HRRT PRN 12/11/17 11:30 Bisacodyl [Dulcolax] 10 mg RECTAL ASDIRECTED 12/11/17 11:51 PARoxetine [Paxil] 10 mg PO DAILY 12/11/17 11:52 Donepezil [Aricept] 10 mg PO DAILY 12/12/17 08:15 Sodium Chloride 0.9% [Normal Saline] 1,000 ml IV CONTINUOUS 12/12/17 09:00 Patient's Own Medication [Ptom] 1 each PO DAILY - Plan Plan:: 1. HCAP- will continue with vancomycin, levaquin and zosyn for now, day 2. White is going up. Will continue to monitor. If still going up, may need to make modifications to antibiotics. 2. Atrial fibrillation- rate controlled. Continue with home medications: metoprolol and warfarin. Warfarin dose per pharmacy. 3. Alzheimer's dementia- continue home medications. Dispo: pending improvement.
[2017-12-12] MEDS ORDERED: Donepezil 10 MG Tab PO SCH (09:00)
[2017-12-12] MEDS: MEMANTINE 28 MG PO SCH (10:00)
[2017-12-12] MEDS: Enoxaparin 40 MG/0.4 ML Syringe SUBCUT SCH (12:29)
[2017-12-12] MEDS: Insulin Aspart 100 Units/ML 3 ML Pen SUBCUT SCH (17:02)
[2017-12-13] MEDS: Piperacillin/Tazobactam 4.5 GM in Sodium Chloride 0.9% 100 ML IV SCH ×3 (00:49→12:06)
[2017-12-13] MEDS: Levofloxacin/Dextrose 5%-Water 750 MG in Premix Bag 1 BAG IV SCH (02:11)
[2017-12-13] MEDS: Insulin Aspart 100 Units/ML 3 ML Pen SUBCUT SCH (06:41)
[2017-12-13 07:32] LABS: CHLORIDE,CL 111 mmol/L (98-107); SODIUM,NA 147 mmol/L (136-148)
[2017-12-13] MEDS ORDERED: Albuterol 8 GM Inhaler INH PRN ×2 (08:11→08:15)
[2017-12-13] MEDS ORDERED: Warfarin 2.5 MG Tab PO ONE (08:30)
[2017-12-13] MEDS: Metoprolol Tartrate 25 MG Tab PO SCH (08:35)
[2017-12-13] MEDS: Donepezil 10 MG Tab PO SCH (08:35)
[2017-12-13 08:36] VITALS: BP 171/90
[2017-12-13] MEDS: MEMANTINE 28 MG PO SCH (08:39)
[2017-12-13] MEDS: Enoxaparin 40 MG/0.4 ML Syringe SUBCUT SCH (12:05)
[2017-12-13] MEDS ORDERED: Warfarin 5 MG Tab PO SCH (14:00)
--- NOTE | 2017-12-13 15:12 | PCM.DCSUM1 ---
Discharge Summary - Hospital Course Free Text/Narrative:: Admission date: 12/11/2017 Discharge date: 12/13/2017 Admission dx: #1. HCAP #2. Leukocytosis secondary to #1 #3. Hx of dementia, a. fib, HTN Discharge dx: #1. HCAP - improved #2. Leukocytosis - resolved #3. HTN Hospital course: 72M [facility] resident w/ the above mention hx was admitted after being found on CXR to have a LLL pneumonia. Pt was admitted and treated w/ vancomycin, levaquin, zosyn. He responded after 2 days of this. Patient was stable on RA, leukocytosis resolved. Patient did have an elevated BP, for which I started lisinopril. He should have this re-evaluated by [facility] physician. Pt was dc on PO Levaquin x5 days. Pt to return if he has any symptoms of concern. Family members in room at the time of discharge understood and agreed to the plan. - Discharge Data Discharge Date: 12/13/17 Discharge Disposition: DC/Tfer to [facility] 03 Condition: Fair - Patient Instructions Diet: Usual Diet as Tolerated Activity: As Tolerated Showering/Bathing: May Shower Notify Provider of: Fever, Increased Pain, Swelling and Redness, Drainage - Discharge Plan Prescriptions/Med Rec: levoFLOXacin [Levaquin] 750 mg PO DAILY 5 Days #5 tab Lisinopril 5 mg PO DAILY 30 Days #30 tablet Home Medications: Home Meds Albuterol [IJD: Ventolin HFA] 2 puff INH Q6H PRN 10/15/15 [History] Donepezil HCl [Aricept] 10 mg PO DAILY 10/15/15 [History] Memantine HCl [Namenda Xr] 28 mg PO DAILY 10/15/15 [History] Metoprolol Tartrate 25 mg PO BID 10/15/15 [History] PARoxetine HCl [Paxil] 10 mg PO DAILY 10/15/15 [History] Umeclidinium Brm/Vilanterol Tr [Anoro Ellipta 62.5-25 MCG] 1 inh IH DAILY [History] Warfarin [Coumadin] 2.5 mg PO BEDTIME 02/02/17 [History] Acetaminophen [Tylenol Arthritis Pain] 1 tab PO Q4HR PRN 12/10/17 [History] Bisacodyl [Dulcolax] 1 supp RECTAL ASDIRECTED 12/10/17 [History] Magnesium Hydroxide [Milk of Magnesia] 30 ml PO DAILY PRN 12/10/17 [History] Lisinopril 5 mg PO DAILY 30 Days #30 tablet 12/13/17 [Rx] levoFLOXacin [Levaquin] 750 mg PO DAILY 5 Days #5 tab 12/13/17 [Rx] Patient Handouts: Community-Acquired Pneumonia, Adult, [id number] Referrals: Kiet Ralph MD [Resident] - - Patient Data Vitals - Most Recent: Last Vital Signs Temp 36.2 C 12/13/17 08:00 Pulse 62 12/13/17 08:35 Resp 15 12/13/17 08:00 BP 171/90 H 12/13/17 08:35 Pulse Ox 94 L 12/13/17 08:00 Weight - Most Recent: 85.321 kg I&O - Last 24 hours: Intake & Output 12/13/17 12/13/17 12/13/17 06:59 14:59 22:59 Intake Total 700 Balance 700 Lab Results - Last 24 hrs: Laboratory Results - last 24 hr 12/12/17 12/12/17 12/13/17 Range/Units 14:08 17:00 05:56 WBC (4.0-11.0) K/uL RBC (4.50-5.90) M/uL Hgb (13.0-17.0) g/dL Hct (38.0-50.0) % MCV (80.0-98.0) fL MCH (27.0-32.0) pg MCHC (31.0-37.0) g/dL RDW Std Deviation (28.0-62.0) fl RDW Coeff of Yadiel (11.0-15.0) % Plt Count (150-400) K/uL MPV (7.40-12.00) fL Neut % (Auto) (48.0-80.0) % Lymph % (Auto) (16.0-40.0) % [place] % (Auto) (0.0-15.0) % Eos % (Auto) (0.0-7.0) % Baso % (Auto) (0.0-1.5) % Neut # (Auto) (1.4-5.7) K/uL Lymph # (Auto) (0.6-2.4) K/uL [place] # (Auto) (0.0-0.8) K/uL Eos # (Auto) (0.0-0.7) K/uL Baso # (Auto) (0.0-0.1) K/uL Nucleated RBC % /100WBC Nucleated RBCs # K/uL INR 1.71 Sodium (136-148) mmol/L Potassium (3.5-5.1) mmol/L Chloride (98-107) mmol/L Carbon Dioxide (21.0-32.0) mmol/L BUN (7.0-18.0) mg/dL Creatinine (0.8-1.3) mg/dL Est Cr Clr Drug Dosing mL/min Estimated GFR (MDRD) ml/min Glucose (74-106) mg/dL POC Glucose 96 80 (60-110) mg/dL Calcium (8.5-10.1) mg/dL Vancomycin Trough (5.0-10.0) ug/mL 12/13/17 12/13/17 12/13/17 Range/Units 07:03 07:03 07:03 WBC 8.66 (4.0-11.0) K/uL RBC 3.98 L (4.50-5.90) M/uL Hgb 12.1 L (13.0-17.0) g/dL Hct 37.7 L (38.0-50.0) % MCV 94.7 (80.0-98.0) fL MCH 30.4 (27.0-32.0) pg MCHC 32.1 (31.0-37.0) g/dL RDW Std Deviation 52.1 (28.0-62.0) fl RDW Coeff of Yadiel 15 (11.0-15.0) % Plt Count 236 (150-400) K/uL MPV 10.80 (7.40-12.00) fL Neut % (Auto) 66.6 (48.0-80.0) % Lymph % (Auto) 18.5 (16.0-40.0) % [place] % (Auto) 8.5 (0.0-15.0) % Eos % (Auto) 5.9 (0.0-7.0) % Baso % (Auto) 0.5 (0.0-1.5) % Neut # (Auto) 5.8 H (1.4-5.7) K/uL Lymph # (Auto) 1.6 (0.6-2.4) K/uL [place] # (Auto) 0.7 (0.0-0.8) K/uL Eos # (Auto) 0.5 (0.0-0.7) K/uL Baso # (Auto) 0.0 (0.0-0.1) K/uL Nucleated RBC % 0.0 /100WBC Nucleated RBCs # 0 K/uL INR 1.56 Sodium (136-148) mmol/L Potassium (3.5-5.1) mmol/L Chloride (98-107) mmol/L Carbon Dioxide (21.0-32.0) mmol/L BUN (7.0-18.0) mg/dL Creatinine (0.8-1.3) mg/dL Est Cr Clr Drug Dosing mL/min Estimated GFR (MDRD) ml/min Glucose (74-106) mg/dL POC Glucose (60-110) mg/dL Calcium (8.5-10.1) mg/dL Vancomycin Trough 24.2 H (5.0-10.0) ug/mL 12/13/17 Range/Units 07:03 WBC (4.0-11.0) K/uL RBC (4.50-5.90) M/uL Hgb (13.0-17.0) g/dL Hct (38.0-50.0) % MCV (80.0-98.0) fL MCH (27.0-32.0) pg MCHC (31.0-37.0) g/dL RDW Std Deviation (28.0-62.0) fl RDW Coeff of Yadiel (11.0-15.0) % Plt Count (150-400) K/uL MPV (7.40-12.00) fL Neut % (Auto) (48.0-80.0) % Lymph % (Auto) (16.0-40.0) % [place] % (Auto) (0.0-15.0) % Eos % (Auto) (0.0-7.0) % Baso % (Auto) (0.0-1.5) % Neut # (Auto) (1.4-5.7) K/uL Lymph # (Auto) (0.6-2.4) K/uL [place] # (Auto) (0.0-0.8) K/uL Eos # (Auto) (0.0-0.7) K/uL Baso # (Auto) (0.0-0.1) K/uL Nucleated RBC % /100WBC Nucleated RBCs # K/uL INR Sodium 147 (136-148) mmol/L Potassium 4.1 (3.5-5.1) mmol/L Chloride 111 H (98-107) mmol/L Carbon Dioxide 29.1 (21.0-32.0) mmol/L BUN 35 H (7.0-18.0) mg/dL Creatinine 1.1 (0.8-1.3) mg/dL Est Cr Clr Drug Dosing 68.50 mL/min Estimated GFR (MDRD) > 60.0 ml/min Glucose 95 (74-106) mg/dL POC Glucose (60-110) mg/dL Calcium 8.9 (8.5-10.1) mg/dL Vancomycin Trough (5.0-10.0) ug/mL BIANKA Results - Last 24 hrs: Microbiology 12/10/17 21:29 Aerobic Blood Culture - Preliminary Blood - Venous NO GROWTH AFTER 2 DAYS Anaerobic Blood Culture - Preliminary NO GROWTH AFTER 2 DAYS 12/10/17 21:35 Aerobic Blood Culture - Preliminary Blood - Venous - Lab Draw NO GROWTH AFTER 2 DAYS Anaerobic Blood Culture - Preliminary NO GROWTH AFTER 2 DAYS Med Orders - Current: Current Medications Discontinued Medications Acetaminophen (Tylenol Extra Strength) 500 mg PO Q4H PRN PRN Reason: Pain Albuterol (Proventil Hfa) 0 gm INH Q6H PRN PRN Reason: Dyspnea Albuterol (Ventolin Hfa) 0 gm INH Q6H PRN PRN Reason: Dyspnea Albuterol (Ventolin Hfa) 0 gm INH Q6HRRT PRN PRN Reason: Dyspnea Albuterol/Ipratropium (Duoneb 3.0-0.5 Mg/3 Ml) 3 ml NEB ONETIME ONE Stop: 12/10/17 20:18 Last Admin: 12/10/17 20:50 Dose: 3 ml Albuterol/Ipratropium (Duoneb 3.0-0.5 Mg/3 Ml) 3 ml NEB Q6HRRT PRN PRN Reason: Shortness of Breath Albuterol/Ipratropium (Duoneb 3.0-0.5 Mg/3 Ml) 3 ml NEB Q6HRRT PRN PRN Reason: Shortness of Breath Bisacodyl (Dulcolax) 10 mg RECTAL ASDIRECTED [facility] Donepezil HCl (Aricept) 10 mg PO DAILY [facility] Donepezil HCl (Aricept) 10 mg PO DAILY [facility] Last Admin: 12/13/17 08:35 Dose: 10 mg Enoxaparin Sodium (Lovenox) 40 mg SUBCUT Q24H [facility] Last Admin: 12/13/17 12:05 Dose: Not Given Levofloxacin/Dextrose 750 mg/ (Premix) 150 mls @ 100 mls/hr IV ONETIME ONE Stop: 12/10/17 22:36 Last Admin: 12/11/17 00:57 Dose: 100 mls/hr Piperacillin Sod/Tazobactam (Sod 3.375 gm/ Sodium Chloride) 50 mls @ 100 mls/ hr IV ONETIME ONE Stop: 12/10/17 21:36 Last Admin: 12/11/17 00:21 Dose: 100 mls/hr Vancomycin HCl 1 gm/ Sodium (Chloride) 250 mls @ 166 mls/hr IV ONETIME ONE Stop: 12/10/17 22:37 Last Admin: 12/10/17 21:30 Dose: 166 mls/hr Levofloxacin/Dextrose 750 mg/ (Premix) 150 mls @ 100 mls/hr IV Q24H [facility] Last Admin: 12/13/17 02:11 Dose: 100 mls/hr Piperacillin Sod/Tazobactam (Sod 3.375 gm/ Sodium Chloride) 50 mls @ 100 mls/ hr IV Q6H [facility] Vancomycin HCl 1,250 mg/ (Sodium Chloride) 250 mls @ 166.667 mls/hr IV Q12H [facility] Last Admin: 12/12/17 20:13 Dose: 166.667 mls/hr Piperacillin Sod/Tazobactam (Sod 3.375 gm/ Sodium Chloride) 50 mls @ 100 mls/ hr IV Q6H [facility] Last Admin: 12/11/17 05:10 Dose: 100 mls/hr Piperacillin Sod/Tazobactam (Sod 4.5 gm/ Sodium Chloride) 100 mls @ 200 mls/hr IV Q6H [facility] Last Admin: 12/13/17 12:06 Dose: Not Given Sodium Chloride (Normal Saline) 1,000 mls @ 125 mls/hr IV CONTINUOUS [facility] Last Admin: 12/12/17 09:56 Dose: 125 mls/hr Vancomycin HCl 1 gm/ Sodium (Chloride) 250 mls @ 166.667 mls/hr IV Q12H [facility] Last Admin: 12/13/17 10:09 Dose: Not Given Insulin Aspart (Novolog) 0 unit SUBCUT BIDAC [facility]; Protocol Last Admin: 12/13/17 06:41 Dose: Not Given Magnesium Hydroxide (Milk Of Magnesia) 30 ml PO DAILY PRN PRN Reason: Constipation Methylprednisolone Sodium Succinate (Solu-Medrol) 125 mg IVPUSH ONETIME ONE Stop: 12/10/17 20:18 Last Admin: 12/10/17 20:39 Dose: 125 mg Metoprolol Tartrate (Lopressor) 25 mg PO Q12H [facility] Last Admin: 12/13/17 08:35 Dose: 25 mg Metoprolol Tartrate (Lopressor) 25 mg PO BID [facility] Paroxetine HCl (Paxil) 10 mg PO DAILY [facility] Paroxetine HCl (Paxil) 10 mg PO DAILY [facility] Last Admin: 12/13/17 08:35 Dose: 10 mg Memantine 28 Mg 1 each PO DAILY [facility] Last Admin: 12/13/17 08:39 Dose: Not Given Sodium Chloride (Saline Flush) 10 ml FLUSH ASDIRECTED PRN PRN Reason: Keep Vein Open Sodium Chloride (Saline Flush) 2.5 ml FLUSH ASDIRECTED PRN PRN Reason: Keep Vein Open Vancomycin HCl (Pharmacy To Dose - Vancomycin) 1 dose .XX ASDIRECTED [facility] Warfarin Sodium (Coumadin) 5 mg PO DAILY@1400 [facility] Last Admin: 12/11/17 14:38 Dose: 5 mg Warfarin Sodium (Coumadin Ask) 1 each PO DAILY@1400 [facility] Last Admin: 12/12/17 13:57 Dose: Not Given Warfarin Sodium (Coumadin) 5 mg PO SuTuThSa@1400 [facility] Warfarin Sodium (Coumadin) 2.5 mg PO MoWeFr@1400 [facility] Warfarin Sodium (Coumadin) 2.5 mg PO ONETIME ONE Stop: 12/13/17 08:31 Last Admin: 12/13/17 08:35 Dose: 2.5 mg
[2017-12-15] MEDS ORDERED: Warfarin 2.5 MG Tab PO SCH (14:00)
== END 2017-12-13 11:55 | DRG 195 ==
LOC: MW.ED 20:09 → MW.MS 21:19
PROVIDERS: ADMIT Internal Medicine; ATTEND Internal Medicine
DX: J18.1 Lobar pneumonia, unspecified organism (principal); D72.829 Elevated white blood cell count, unspecified; I10 Essential (primary) hypertension; G30.9 Alzheimer's disease, unspecified; F02.80 Dementia in other diseases classified elsewhere, unspecified severity, without behavioral disturbance, psychotic disturbance, mood disturbance, and anxiety; I50.9 Heart failure, unspecified; I48.91 Unspecified atrial fibrillation; J44.9 Chronic obstructive pulmonary disease, unspecified; F41.9 Anxiety disorder, unspecified; F32.9 Major depressive disorder, single episode, unspecified; Z79.899 Other long term (current) drug therapy; Z87.891 Personal history of nicotine dependence; Z79.01 Long term (current) use of anticoagulants
CPT/HCPCS: 36415; 71045; 80053; 83880; 84484; 85025; 85610; 87804 ×2; 93005; 94640; 96375; 99284; J2930; 51701; 80048; 80202; 81001; 82962; 83036; 87040; 96365; A9270-GY; J1650; J1956; J2543; J3370; J7030; J7040; J7050; J7620-GY

== ENCOUNTER 2019-02-14 09:16 | Emergency (ER) | payer MEDICARE, BC ==
--- NOTE | 2019-02-14 09:45 | EDM.PDOC ---
ED HPI GENERAL MEDICAL PROBLEM - General Chief Complaint: Trauma Stated Complaint: PT FELL Time Seen by Provider: 02/14/19 09:41 - History of Present Illness INITIAL COMMENTS - FREE TEXT/NARRATIVE: HISTORY AND PHYSICAL: History of present illness: Patient is 73-year-old white male with history of chronic atrial fibrillation dementia was found on the floor presumptively status post fall no obvious injuries with a chief complaint of right hip/foot pain there is no obvious head injury with no nausea vomiting patient is known to be on Coumadin there is no history of chest pain palpitations Review of systems: As per history of present illness and below otherwise all systems reviewed and negative. Past medical history: As per history of present illness and as reviewed below otherwise noncontributory. Surgical history: As per history of present illness and as reviewed below otherwise noncontributory. Social history: No reported history of drug or alcohol abuse. Family history: As per history of present illness and as reviewed below otherwise noncontributory. Physical exam: HEENT: Atraumatic, normocephalic, pupils reactive, negative for conjunctival pallor or scleral icterus, mucous membranes moist, throat clear, neck supple, nontender, trachea midline. Lungs: Clear to auscultation, breath sounds equal bilaterally, chest nontender. Heart: S1S2, no JVD. Abdomen: Soft, nondistended, nontender. Negative for masses or hepatosplenomegaly. Negative for costovertebral tenderness. Pelvis: Stable nontender. Genitourinary: Deferred. Rectal: Deferred. Extremities: No gross deformity clinical tenderness to right hip with movement, negative for cords or calf pain. Neurovascular unremarkable. Neuro: Awake, alert, follows commands and moves all extremities limited grossly nonfocal exam baseline per nursing Diagnostics: CBC CMP troponin PT/INR chest x-ray EKG CT brain x-ray right hip pelvis Therapeutics: IV O2 monitor Impression: #1 observation status post fall #2 right hip/foot injury #3 history of chronic atrial fibrillation #4 history of dementia Definitive disposition and diagnosis as appropriate pending reevaluation and review of above. - Related Data Allergies Allergy/AdvReac Type Severity Reaction Status Date / Time No Known Allergies Allergy Verified 12/10/17 20:25 Home Meds: Home Meds Albuterol [IJD: Ventolin HFA] 2 puff INH Q6H PRN 10/15/15 [History] Warfarin [Coumadin] 5 mg PO BEDTIME 02/02/17 [History] Acetaminophen [Tylenol Arthritis Pain] 1 tab PO Q4HR PRN 7 Days #24 tab.er 12/13 [Rx] Albuterol [Ventolin HFA] 1 puff INH Q4H PRN 7 Days #1 inhaler 12/13/17 [Rx] Bisacodyl [Dulcolax] 1 supp RECTAL ASDIRECTED PRN 7 Days #7 supp 12/13/17 [Rx] Donepezil HCl [Aricept] 10 mg PO DAILY 7 Days #7 tablet 12/13/17 [Rx] Magnesium Hydroxide [Milk of Magnesia] 30 ml PO DAILY PRN 7 Days #1 cup [Rx] Metoprolol Tartrate 25 mg PO BID 7 Days #14 tablet 12/13/17 [Rx] Umeclidinium Brm/Vilanterol Tr [Anoro Ellipta 62.5-25 MCG] 1 inh IH DAILY 7 Days #7 inhaler 12/13/17 [Rx] Memantine HCl [Namenda Xr] 28 mg PO DAILY 30 Days #30 cap.er 12/14/17 [Rx] Albuterol [Ventolin HFA] 8 gm INH ASDIRECTED 02/14/19 [History] Camphor/Menthol [Sarna Lotion] 222 ml TOP ASDIRECTED 02/14/19 [History] Triamcinolone Acetonide [Nasacort] 1 spray INH DAILY 02/14/19 [History] Warfarin [Coumadin] 6.25 mg PO DAILY 02/14/19 [History] Past Medical History - Past Health History Medical/Surgical History: Denies Medical/Surgical History Cardiovascular History: Reports: Afib, Hypertension Respiratory History: Reports: COPD Genitourinary History: Reports: Urinary Incontinence Neurological History: Reports: Alzheimers Disease Psychiatric History: Reports: Alzheimers Disease, Anxiety, Dementia, Depression Dermatologic History: Reports: Other (See Below) Other Dermatologic History: dry skin - Infectious Disease History Infectious Disease History: Reports: None Social & Family History - Family History Family Medical History: Unobtainable - Tobacco Use Smoking Status *Q: Never Smoker - Caffeine Use Caffeine Use: Reports: None - Recreational Drug Use Recreational Drug Use: No Review of Systems - Review of Systems Review Of Systems: Comprehensive ROS is negative, except as noted in HPI. ED EXAM, GENERAL - Physical Exam Exam: See Below (Dictation) Course - Vital Signs Last Recorded V/S: Last Vital Signs Temp 36.4 C 02/14/19 09:21 Pulse 98 02/14/19 09:21 Resp 18 02/14/19 09:21 BP 139/71 02/14/19 09:21 Pulse Ox 81 L 02/14/19 09:21 - Orders/Labs/Meds Orders: Active Orders 24 hr Category Date Time Status Admission Status [Patient Status] [ADT] Stat ADT 02/14/19 10:50 Active EKG Documentation Completion [RC] STAT Care 02/14/19 09:28 Active Labs: Laboratory Tests 02/14/19 02/14/19 02/14/19 Range/Units 10:10 10:26 10:26 WBC 12.81 H (4.0-11.0) K/uL RBC 4.38 L (4.50-5.90) M/uL Hgb 13.5 (13.0-17.0) g/dL Hct 42.5 (38.0-50.0) % MCV 97.0 (80.0-98.0) fL MCH 30.8 (27.0-32.0) pg MCHC 31.8 (31.0-37.0) g/dL RDW Std Deviation 51.8 (28.0-62.0) fl RDW Coeff of Yadiel 15 (11.0-15.0) % Plt Count 209 (150-400) K/uL MPV 11.20 (7.40-12.00) fL Neut % (Auto) 79.7 (48.0-80.0) % Lymph % (Auto) 9.7 L (16.0-40.0) % [place] % (Auto) 9.9 (0.0-15.0) % Eos % (Auto) 0.5 (0.0-7.0) % Baso % (Auto) 0.2 (0.0-1.5) % Neut # (Auto) 10.2 H (1.4-5.7) K/uL Lymph # (Auto) 1.2 (0.6-2.4) K/uL [place] # (Auto) 1.3 H (0.0-0.8) K/uL Eos # (Auto) 0.1 (0.0-0.7) K/uL Baso # (Auto) 0.0 (0.0-0.1) K/uL Nucleated RBC % 0.2 /100WBC Nucleated RBCs # 0 K/uL INR 3.04 Sodium (136-148) mmol/L Potassium (3.5-5.1) mmol/L Chloride (98-107) mmol/L Carbon Dioxide (21.0-32.0) mmol/L BUN (7.0-18.0) mg/dL Creatinine (0.8-1.3) mg/dL Est Cr Clr Drug Dosing mL/min Estimated GFR (MDRD) ml/min Glucose (74-106) mg/dL Calcium (8.5-10.1) mg/dL Total Bilirubin (0.2-1.0) mg/dL AST (15-37) IU/L ALT (14-63) IU/L Alkaline Phosphatase (46-116) U/L Troponin I (0.000-0.056) ng/mL Total Protein (6.4-8.2) g/dL Albumin (3.4-5.0) g/dL Globulin (2.6-4.0) g/dL Albumin/Globulin Ratio (0.9-1.6) Urine Color YELLOW Urine Appearance CLEAR Urine pH 6.0 (5.0-8.0) Ur Specific [place] 1.010 (1.001-1.035) Urine Protein NEGATIVE (NEGATIVE) mg/dL Urine Glucose (UA) NEGATIVE (NEGATIVE) mg/dL Urine Ketones NEGATIVE (NEGATIVE) mg/dL Urine Occult Blood TRACE-INTACT H (NEGATIVE) Urine Nitrite NEGATIVE (NEGATIVE) Urine Bilirubin NEGATIVE (NEGATIVE) Urine Urobilinogen 0.2 (<2.0) EU/dL Ur Leukocyte Esterase NEGATIVE (NEGATIVE) Urine RBC 0-2 (0-2/HPF) Urine WBC 0-1 (0-5/HPF) Ur Epithelial Cells RARE (NONE-FEW) Urine Bacteria RARE (NEGATIVE) 02/14/19 Range/Units 10:26 WBC (4.0-11.0) K/uL RBC (4.50-5.90) M/uL Hgb (13.0-17.0) g/dL Hct (38.0-50.0) % MCV (80.0-98.0) fL MCH (27.0-32.0) pg MCHC (31.0-37.0) g/dL RDW Std Deviation (28.0-62.0) fl RDW Coeff of Yadiel (11.0-15.0) % Plt Count (150-400) K/uL MPV (7.40-12.00) fL Neut % (Auto) (48.0-80.0) % Lymph % (Auto) (16.0-40.0) % [place] % (Auto) (0.0-15.0) % Eos % (Auto) (0.0-7.0) % Baso % (Auto) (0.0-1.5) % Neut # (Auto) (1.4-5.7) K/uL Lymph # (Auto) (0.6-2.4) K/uL [place] # (Auto) (0.0-0.8) K/uL Eos # (Auto) (0.0-0.7) K/uL Baso # (Auto) (0.0-0.1) K/uL Nucleated RBC % /100WBC Nucleated RBCs # K/uL INR Sodium 141 (136-148) mmol/L Potassium 4.8 (3.5-5.1) mmol/L Chloride 105 (98-107) mmol/L Carbon Dioxide 30.1 (21.0-32.0) mmol/L BUN 23 H (7.0-18.0) mg/dL Creatinine 1.1 (0.8-1.3) mg/dL Est Cr Clr Drug Dosing 50.70 mL/min Estimated GFR (MDRD) > 60.0 ml/min Glucose 122 H (74-106) mg/dL Calcium 8.7 (8.5-10.1) mg/dL Total Bilirubin 1.4 H (0.2-1.0) mg/dL AST 17 (15-37) IU/L ALT 36 (14-63) IU/L Alkaline Phosphatase 69 (46-116) U/L Troponin I < 0.050 (0.000-0.056) ng/mL Total Protein 7.1 (6.4-8.2) g/dL Albumin 3.3 L (3.4-5.0) g/dL Globulin 3.8 (2.6-4.0) g/dL Albumin/Globulin Ratio 0.9 (0.9-1.6) Urine Color Urine Appearance Urine pH (5.0-8.0) Ur Specific [place] (1.001-1.035) Urine Protein (NEGATIVE) mg/dL Urine Glucose (UA) (NEGATIVE) mg/dL Urine Ketones (NEGATIVE) mg/dL Urine Occult Blood (NEGATIVE) Urine Nitrite (NEGATIVE) Urine Bilirubin (NEGATIVE) Urine Urobilinogen (<2.0) EU/dL Ur Leukocyte Esterase (NEGATIVE) Urine RBC (0-2/HPF) Urine WBC (0-5/HPF) Ur Epithelial Cells (NONE-FEW) Urine Bacteria (NEGATIVE) Departure - Departure Time of Disposition: 12:41 Disposition: Home, Self-Care 01 Condition: Good Clinical Impression: Fall, Encounter for medical screening examination - Discharge Information Referrals: Kiet Ralph MD [Primary Care Provider] - Forms: ED Department Discharge Additional Instructions: The following information is given to patients seen in the emergency department who are being discharged to home. This information is to outline your options for follow-up care. We provide all patients seen in our emergency department with a follow-up referral. The need for follow-up, as well as the timing and circumstances, are variable depending upon the specifics of your emergency department visit. If you don't have a primary care physician on staff, we will provide you with a referral. We always advise you to contact your personal physician following an emergency department visit to inform them of the circumstance of the visit and for follow-up with them and/or the need for any referrals to a consulting specialist. The emergency department will also refer you to a specialist when appropriate. This referral assures that you have the opportunity for followup care with a specialist. All of these measure are taken in an effort to provide you with optimal care, which includes your followup. Under all circumstances we always encourage you to contact your private physician who remains a resource for coordinating your care. When calling for followup care, please make the office aware that this follow-up is from your recent emergency room visit. If for any reason you are refused follow-up, please contact the [facility] emergency department at and asked to speak to the emergency department charge nurse. Follow-up primary medical doctor as needed as discussed return as needed as discussed - My Orders Last 24 Hours: My Active Orders 02/14/19 09:28 EKG Documentation Completion [RC] STAT 02/14/19 10:50 Admission Status [Patient Status] [ADT] Stat - Assessment/Plan Last 24 Hours: My Active Orders 02/14/19 09:28 EKG Documentation Completion [RC] STAT 02/14/19 10:50 Admission Status [Patient Status] [ADT] Stat
--- NOTE | 2019-02-14 10:36 | CR ---
HISTORY: Fall, trauma. TECHNIQUE: One view of the chest. COMPARISON: No prior. FINDINGS: Moderate left-sided pleural effusion. There is left lung base atelectasis or possibly underlying infiltrate. Small area of atelectasis or scarring within the right lateral costophrenic angle region. Right lung otherwise clear. No pneumothorax. Cardiac size difficult evaluate given the left-sided pleural effusion. IMPRESSION: Moderate left-sided pleural effusion with left lung base atelectasis or possibly infiltrate. Dictated by Ra Crane MD @ 02/14/2019 10:34:43 AM Dictated by: Ra Crane MD @ 02/14/2019 10:34:49 (Electronically Signed)
--- NOTE | 2019-02-14 10:38 | CR ---
HISTORY: Fall. TECHNIQUE: Two views of the right foot. COMPARISON: No prior. FINDINGS: No acute fracture or malalignment. Plantar calcaneal spur. Bones appear osteopenic. No radiopaque foreign body or soft tissue gas. IMPRESSION: 1. No acute fracture. 2. Osteopenia. Dictated by Ra Crane MD @ 02/14/2019 10:36:14 AM Dictated by: Ra Crane MD @ 02/14/2019 10:36:17 (Electronically Signed)
--- NOTE | 2019-02-14 10:38 | CR ---
HISTORY: Fall, trauma. TECHNIQUE: Two views of the right hip. COMPARISON: No prior. FINDINGS: No acute fracture. Mild degenerative changes of the right hip with right proximal femoral anatomy that predisposes to CAM type femoral acetabular impingement. Mild axial hip joint space narrowing. IMPRESSION: 1. No acute fracture. 2. Mild degenerative changes. Dictated by Ra Crane MD @ 02/14/2019 10:37:36 AM Dictated by: Ra Crane MD @ 02/14/2019 10:37:41 (Electronically Signed)
--- NOTE | 2019-02-14 10:40 | CR ---
HISTORY: Fall, trauma. TECHNIQUE: One view pelvis. COMPARISON: No prior. FINDINGS: No acute pelvic fracture. Mild hip joint degenerative changes. Degenerative changes within the spine. IMPRESSION: No acute fracture. Dictated by Ra Crane MD @ 02/14/2019 10:38:43 AM Dictated by: Ra Crane MD @ 02/14/2019 10:38:49 (Electronically Signed)
--- NOTE | 2019-02-14 10:46 | CT ---
INDICATION: Fall. Confusion. TECHNIQUE: Noncontrast CT images were obtained through the brain. COMPARISON: CT brain 02/02/2017. FINDINGS: Prominence of the ventricles and sulci compatible with moderate diffuse cerebral volume loss, in addition to advanced volume loss involving the left greater than right anterior temporal lobes associated with ex vacuo dilatation of the temporal horns. No mass effect or midline shift. The mosley-white differentiation is maintained. No acute intracranial hemorrhage or pathologic extra-axial fluid collection. Intracranial atherosclerotic calcifications. Scattered hypoattenuation in the supratentorial white matter. The globes are symmetric in size. The calvarium is intact. The paranasal sinuses and mastoid air cells are clear. IMPRESSION: 1. No acute intracranial hemorrhage or mass effect. No significant change compared to 02/02/2017. 2. Moderate diffuse cerebral volume loss in addition to advanced volume loss involving the left greater than right anterior temporal lobes. Correlate with history of Alzheimer`s or frontotemporal dementia. 3. Scattered hypoattenuation in the supratentorial white matter, typical for sequelae of mild chronic microvascular ischemic changes. Please note that all CT scans at this facility use dose modulation, iterative reconstruction, and/or weight-based dosing when appropriate to reduce radiation dose to as low as reasonably achievable. Dictated by Isaiah Stack MD @ Feb 14 2019 10:39AM Signed by Dr. Isaiah Stack @ Feb 14 2019 10:46AM
[2019-02-14 10:55] LABS: BLOOD UREA NITROGEN,BUN 23 mg/dL (7.0-18.0); CARBON DIOXIDE,CO2 30.1 mmol/L (21.0-32.0); CHLORIDE,CL 105 mmol/L (98-107); GLUCOSE RANDOM 122 mg/dL (74-106); POTASSIUM,K 4.8 mmol/L (3.5-5.1); SODIUM,NA 141 mmol/L (136-148)
--- NOTE | 2019-02-14 12:22 | CT ---
HISTORY: Fall. TECHNIQUE: Noncontrast CT of the pelvis. Noncontrast CT of the right hip. COMPARISON: Radiographs 02/14/2019. FINDINGS: Right hip: No acute proximal femoral or acetabular fracture. Mild degenerative change of the right hip. No significant right hip joint effusion. No space-occupying hematoma about the right hip. --- Pelvis: Degenerative changes of the bilateral hips. There is no acute pelvic fracture. Degenerative changes sacroiliac joints. Degenerative disc and joint disease within the lower lumbar spine. 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 Probable bone island within the left sacral ala. No localized fluid collection or space-occupying hematoma. Vascular calcifications. Colonic diverticulosis. IMPRESSION: 1. Right hip: No acute fracture. Mild degenerative changes of the right hip. No effusion. 2. Pelvis: No acute pelvic fracture. No space-occupying hematoma or fluid collection. Dictated by Ra Crane MD @ 02/14/2019 12:21:38 PM Please note that all CT scans at this facility use dose modulation, iterative reconstruction, and/or weight-based dosing when appropriate to reduce radiation dose to as low as reasonably achievable. Dictated by: Ra Crane MD @ 02/14/2019 12:21:53 (Electronically Signed)
[2019-02-14 14:35] VITALS: BP 139/72; PULSE 76
== END 2019-02-14 12:50 | disposition home or self-care (01) ==
LOC: MW.ED 09:16
DX: S79.911A Unspecified injury of right hip, initial encounter (principal); S99.921A Unspecified injury of right foot, initial encounter; F03.90 Unspecified dementia, unspecified severity, without behavioral disturbance, psychotic disturbance, mood disturbance, and anxiety; I48.20 Chronic atrial fibrillation, unspecified; G30.9 Alzheimer's disease, unspecified; I10 Essential (primary) hypertension; F02.80 Dementia in other diseases classified elsewhere, unspecified severity, without behavioral disturbance, psychotic disturbance, mood disturbance, and anxiety; Z79.01 Long term (current) use of anticoagulants; Z79.899 Other long term (current) drug therapy; W19.XXXA Unspecified fall, initial encounter
CPT/HCPCS: 36415; 70450; 70450-26; 71045; 71045-26; 72170; 72170-26; 72192; 72192-26; 73502-26-RT; 73502-RT; 73620-26-RT; 73620-RT; 73700-26-RT; 73700-RT; 80053; 81001; 84484; 85025; 85610; 93005; 99284; 99284-25

== ENCOUNTER 2019-03-11 15:30 | Inpatient (IN) | payer MEDICARE, BC ==
--- NOTE | 2019-03-11 16:29 | CR ---
Chest: Portable view of the chest was obtained. Comparison: Prior chest x-ray of 02/14/19. Moderately large left sided pleural effusion is seen with continuing parenchymal density within the left base. Pleural effusion may have slightly increased in amount from previous exam. Slight atelectasis is seen within the right lateral costophrenic angle. Pulmonary vessels are increased which remains stable. Heart is felt to be slightly enlarged. Bony structures are grossly intact. Impression: 1. Moderately large left-sided pleural effusion possibly slightly increased from previous exam. 2. Continued areas of consolidation within the left base which either represents atelectasis or possibly pneumonia. 3. Mild atelectasis within the right lateral costophrenic angle. 4. Other findings within the chest are stable. Diagnostic code #3 This report was dictated in [place] Standard Time
[2019-03-11 16:43] LABS: BLOOD UREA NITROGEN,BUN 29 mg/dL (7.0-18.0); CARBON DIOXIDE,CO2 29.7 mmol/L (21.0-32.0); CHLORIDE,CL 102 mmol/L (98-107); GLUCOSE RANDOM 122 mg/dL (74-106); LIPASE 215 U/L (73-393); POTASSIUM,K 4.8 mmol/L (3.5-5.1); SODIUM,NA 139 mmol/L (136-148)
[2019-03-11] MEDS ORDERED: Albuterol/Ipratropium 3.0-0.5 MG/3 ML Neb Soln NEB ONE (17:04)
[2019-03-11] MEDS ORDERED: Levofloxacin 500 MG Tab PO ONE (17:06)
--- NOTE | 2019-03-11 17:17 | EDM.PDOC ---
ED [facility] GENERAL MEDICAL PROBLEM - General Chief Complaint: Respiratory Problem Stated Complaint: ILL Time Seen by Provider: 03/11/19 15:42 - History of Present Illness INITIAL COMMENTS - FREE TEXT/NARRATIVE: HPI 73-year-old male with history of dementia, CHF, and atrial fibrillation on warfarin [facility] of ~3 days (baseline SaO2 in mid 80s, last 3 days in the low 70s). No further history available. Code status: patient is do not intubate, do not resuscitate (i.e. CPR), however would like medical care including antibiotics. M/S/F/SocHx notable for: please see HPI. ROS: unable to obtain. Exam HR 87, RR 22, BP 160/89, T 36.9C, SaO2 77% on room air. Gen: Pleasant, non-toxic appearing, resting comfortably. HEENT: NC, AT, PEERL, EOMI, trachea midline. Resp: diminish left lower lobe lung breath sounds, otherwise clear to auscultation bilaterally with the exception of some coarse breath sounds in the mid left lung hernandez, mildly increased work of breathing. Card: irregularly irregular with no M/R/G, no crackles in lung bases, no pedal edema, no JVD appreciated. GI: NT/ND Vascular: Both ankles, calves, and thighs of equal size, no calf tenderness to palpation bilaterally. MSK: No chest wall TTP. No visible deformities, strength and tone WNL. Skin: Normal color with no visible lesions. Neuro: alert and oriented 3, no facial asymmetry, vision and hearing WNL. Psych: Mood and affect appropriate. Labs / Imaging (pertinent): WBC 11.1, HB 13.0, sodium 139, potassium 4.8, total bilirubin 1.5, AST 20, ALT 50, alkaline phosphatase 81, troponin <0.050, BNP 355, lipase 215. UA - negative nitrate, negative leukocyte esterase. Influenza A & B negative. lactic acid 1.7 PT/INR pending. EKG: SR at 79 bpm, no NH segment depressions, no new ST segment changes, new LBBB, or T-wave changes that would suggest acute ischemia. CXR: moderate large left side pleural effusion possibly slightly increased from previous exam. Continued areas of consolidation within the left base which either represents atelectasis or possibly pneumonia. Mild atelectasis within the right costophrenic angle. MDM Previous chart, nursing note, and vitals reviewed. A: 73-year-old male with history of dementia, CHF, and atrial fibrillation on warfarin [facility] with hypoxia of ~3 days (baseline SaO2 in mid 80s, last 3 days in the low 70s). DDx: pneumonia, reactive airway disease / COPD / Asthma, bronchitis, pneumothorax, anxiety, PE, CHF, pleural effusion, pericardial effusion, ACS. Evaluation: * Pneumonia - chest x-ray concerning for possible pneumonia. Blood cultures drawn, patient given 750 mg Levaquin. * Reactive airway disease / COPD / Asthma - patient with good air movement and an absence of clinically significant wheezing on my exam, nursing noted wheezing on the department, a DuoNeb trial was ordered. * Bronchitis - doubt given the lack of productive cough or systemic symptoms. * Pneumothorax - no evidence by CXR. * Anxiety - patient clinically without evidence of appreciable anxiety on exam. * PE - low clinical suspicion given history and alternate diagnosis, further risk stratification (e.g.) Well's not indicated. Further evaluation deferred to the hospitalist as appropriate. * CHF - no evidence by auscultation, CXR, and absence of pedal edema. * Pleural effusion - chest x-ray with a large left side pleural effusion, this appears to be relatively stable, as such doubt this was the cause of the patient s new hypoxemia, however further evaluation is deferred to the hospitalist as appropriate. * Pericardial effusion - doubt pericardial effusion given an alternate diagnosis , the lack of cardiomegaly on CXR and normal heart sounds. * ACS - doubt ACS given a non-ischemic EKG and a negative troponin greater than six hours from maximal symptom onset. Disposition: admitted for further care. Impression: pneumonia. (please reference below for remainder of encounter information) Critical Care Time Organ system(s): Cardiopulmonary Intervention: Assessment of the patient, interpretation of studies, communication related to patient care. Time: 30 minutes were spent directly related to patient care exclusive of separately billed procedures. - Related Data Allergies Allergy/AdvReac Type Severity Reaction Status Date / Time No Known Allergies Allergy Verified 03/11/19 15:46 Home Meds: Home Meds Albuterol [IJD: Ventolin HFA] 2 puff INH Q6H PRN 10/15/15 [History] Warfarin [Coumadin] 5 mg PO BEDTIME 02/02/17 [History] Acetaminophen [Tylenol Arthritis Pain] 1 tab PO Q4HR PRN 7 Days #24 tab.er 12/13 [Rx] Albuterol [Ventolin HFA] 1 puff INH Q4H PRN 7 Days #1 inhaler 12/13/17 [Rx] Donepezil HCl [Aricept] 10 mg PO DAILY 7 Days #7 tablet 12/13/17 [Rx] Magnesium Hydroxide [Milk of Magnesia] 30 ml PO DAILY PRN 7 Days #1 cup [Rx] Metoprolol Tartrate 25 mg PO BID 7 Days #14 tablet 12/13/17 [Rx] Umeclidinium Brm/Vilanterol Tr [Anoro Ellipta 62.5-25 MCG] 1 inh IH DAILY 7 Days #7 inhaler 12/13/17 [Rx] bisacodyL [Dulcolax] 1 supp RECTAL ASDIRECTED PRN 7 Days #7 supp 12/13/17 [Rx] Memantine HCl [Namenda Xr] 28 mg PO DAILY 30 Days #30 cap.er 12/14/17 [Rx] Albuterol [Ventolin HFA] 8 gm INH ASDIRECTED 02/14/19 [History] Camphor/Menthol [Sarna Lotion] 222 ml TOP ASDIRECTED 02/14/19 [History] Triamcinolone Acetonide [Nasacort] 1 spray INH DAILY 02/14/19 [History] Warfarin [Coumadin] 6.25 mg PO DAILY 02/14/19 [History] Past Medical History - Past Health History Medical/Surgical History: Denies Medical/Surgical History Cardiovascular History: Reports: Afib, Hypertension Respiratory History: Reports: COPD Genitourinary History: Reports: Urinary Incontinence Neurological History: Reports: Alzheimers Disease Psychiatric History: Reports: Alzheimers Disease, Anxiety, Dementia, Depression Dermatologic History: Reports: Other (See Below) Other Dermatologic History: dry skin - Infectious Disease History Infectious Disease History: Reports: Chicken Pox, Measles Social & Family History - Family History Family Medical History: Unobtainable - Tobacco Use Smoking Status *Q: Never Smoker - Caffeine Use Caffeine Use: Reports: None - Recreational Drug Use Recreational Drug Use: No ED ROS GENERAL - Review of Systems Review Of Systems: See Below ED EXAM, GENERAL - Physical Exam Exam: See Below Course - Vital Signs Last Recorded V/S: Last Vital Signs Temp 36.9 C 03/11/19 15:44 Pulse 87 03/11/19 15:44 Resp 22 H 03/11/19 16:22 BP 160/89 H 03/11/19 15:44 Pulse Ox 99 03/11/19 16:22 - Orders/Labs/Meds Orders: Active Orders 24 hr Category Date Time Status EKG 12 Lead [EKG Documentation Completion] [RC] STAT Care 03/11/19 15:54 Active RT Aerosol Therapy [RC] ASDIRECTED Care 03/11/19 17:05 Active CULTURE BLOOD [BC] Stat Lab 03/11/19 15:54 Ordered CULTURE BLOOD [BC] Stat Lab 03/11/19 15:56 Received INR,PT,PROTHROMBIN TIME [COAG] Stat Lab 03/11/19 17:15 Ordered Blood Culture x2 Reflex Set [OM.PC] Stat Oth 03/11/19 15:54 Ordered Labs: Laboratory Tests 03/11/19 03/11/19 03/11/19 Range/Units 15:56 15:56 15:56 WBC 11.10 H (4.0-11.0) K/uL RBC 4.24 L (4.50-5.90) M/uL Hgb 13.0 (13.0-17.0) g/dL Hct 41.4 (38.0-50.0) % MCV 97.6 (80.0-98.0) fL MCH 30.7 (27.0-32.0) pg MCHC 31.4 (31.0-37.0) g/dL RDW Std Deviation 54.6 (28.0-62.0) fl RDW Coeff of Yadiel 15 (11.0-15.0) % Plt Count 244 (150-400) K/uL MPV 11.00 (7.40-12.00) fL Neut % (Auto) 71.8 (48.0-80.0) % Lymph % (Auto) 14.7 L (16.0-40.0) % [place] % (Auto) 11.3 (0.0-15.0) % Eos % (Auto) 1.8 (0.0-7.0) % Baso % (Auto) 0.4 (0.0-1.5) % Neut # (Auto) 8.0 H (1.4-5.7) K/uL Lymph # (Auto) 1.6 (0.6-2.4) K/uL [place] # (Auto) 1.3 H (0.0-0.8) K/uL Eos # (Auto) 0.2 (0.0-0.7) K/uL Baso # (Auto) 0.0 (0.0-0.1) K/uL Nucleated RBC % 0.6 /100WBC Nucleated RBCs # 0 K/uL Lactate 1.7 (0.20-2.00) mmol/L Sodium 139 (136-148) mmol/L Potassium 4.8 (3.5-5.1) mmol/L Chloride 102 (98-107) mmol/L Carbon Dioxide 29.7 (21.0-32.0) mmol/L BUN 29 H (7.0-18.0) mg/dL Creatinine 1.1 (0.8-1.3) mg/dL Est Cr Clr Drug Dosing TNP Estimated GFR (MDRD) > 60.0 ml/min Glucose 122 H (74-106) mg/dL Calcium 8.7 (8.5-10.1) mg/dL Total Bilirubin 1.5 H (0.2-1.0) mg/dL AST 22 (15-37) IU/L ALT 50 (14-63) IU/L Alkaline Phosphatase 81 (46-116) U/L Troponin I < 0.050 (0.000-0.056) ng/mL B-Natriuretic Peptide (<100) PG/ML Total Protein 7.3 (6.4-8.2) g/dL Albumin 3.4 (3.4-5.0) g/dL Globulin 3.9 (2.6-4.0) g/dL Albumin/Globulin Ratio 0.9 (0.9-1.6) Lipase 215 (73-393) U/L Urine Color Urine Appearance Urine pH (5.0-8.0) Ur Specific [place] (1.001-1.035) Urine Protein (NEGATIVE) mg/dL Urine Glucose (UA) (NEGATIVE) mg/dL Urine Ketones (NEGATIVE) mg/dL Urine Occult Blood (NEGATIVE) Urine Nitrite (NEGATIVE) Urine Bilirubin (NEGATIVE) Urine Urobilinogen (<2.0) EU/dL Ur Leukocyte Esterase (NEGATIVE) Urine RBC (0-2/HPF) Urine WBC (0-5/HPF) Ur Epithelial Cells (NONE-FEW) Amorphous Sediment (NEGATIVE) Urine Bacteria (NEGATIVE) Urine Mucus (NONE-MOD) 03/11/19 03/11/19 Range/Units 15:56 16:43 WBC (4.0-11.0) K/uL RBC (4.50-5.90) M/uL Hgb (13.0-17.0) g/dL Hct (38.0-50.0) % MCV (80.0-98.0) fL MCH (27.0-32.0) pg MCHC (31.0-37.0) g/dL RDW Std Deviation (28.0-62.0) fl RDW Coeff of Yadiel (11.0-15.0) % Plt Count (150-400) K/uL MPV (7.40-12.00) fL Neut % (Auto) (48.0-80.0) % Lymph % (Auto) (16.0-40.0) % [place] % (Auto) (0.0-15.0) % Eos % (Auto) (0.0-7.0) % Baso % (Auto) (0.0-1.5) % Neut # (Auto) (1.4-5.7) K/uL Lymph # (Auto) (0.6-2.4) K/uL [place] # (Auto) (0.0-0.8) K/uL Eos # (Auto) (0.0-0.7) K/uL Baso # (Auto) (0.0-0.1) K/uL Nucleated RBC % /100WBC Nucleated RBCs # K/uL Lactate (0.20-2.00) mmol/L Sodium (136-148) mmol/L Potassium (3.5-5.1) mmol/L Chloride (98-107) mmol/L Carbon Dioxide (21.0-32.0) mmol/L BUN (7.0-18.0) mg/dL Creatinine (0.8-1.3) mg/dL Est Cr Clr Drug Dosing Estimated GFR (MDRD) ml/min Glucose (74-106) mg/dL Calcium (8.5-10.1) mg/dL Total Bilirubin (0.2-1.0) mg/dL AST (15-37) IU/L ALT (14-63) IU/L Alkaline Phosphatase (46-116) U/L Troponin I (0.000-0.056) ng/mL B-Natriuretic Peptide 355 H (<100) PG/ML Total Protein (6.4-8.2) g/dL Albumin (3.4-5.0) g/dL Globulin (2.6-4.0) g/dL Albumin/Globulin Ratio (0.9-1.6) Lipase (73-393) U/L Urine Color YELLOW Urine Appearance SLT CLOUDY Urine pH 5.0 (5.0-8.0) Ur Specific [place] >= 1.030 (1.001-1.035) Urine Protein NEGATIVE (NEGATIVE) mg/dL Urine Glucose (UA) NEGATIVE (NEGATIVE) mg/dL Urine Ketones NEGATIVE (NEGATIVE) mg/dL Urine Occult Blood SMALL H (NEGATIVE) Urine Nitrite NEGATIVE (NEGATIVE) Urine Bilirubin NEGATIVE (NEGATIVE) Urine Urobilinogen 1.0 (<2.0) EU/dL Ur Leukocyte Esterase NEGATIVE (NEGATIVE) Urine RBC 0-1 (0-2/HPF) Urine WBC 0-1 (0-5/HPF) Ur Epithelial Cells NOT SEEN (NONE-FEW) Amorphous Sediment FEW (NEGATIVE) Urine Bacteria RARE (NEGATIVE) Urine Mucus RARE (NONE-MOD) Meds: Medications Discontinued Medications Generic Name Dose Route Start Last Admin Trade Name Freq PRN Reason Stop Dose Admin Albuterol/Ipratropium 3 ml 03/11/19 17:04 Duoneb 3.0-0.5 Mg/3 Ml NEB 03/11/19 17:05 ONETIME ONE Levofloxacin 750 mg 03/11/19 17:06 Levaquin PO 03/11/19 17:07 ONETIME ONE Departure - Departure Time of Disposition: 17:16 Disposition: Admitted As Inpatient 64 Clinical Impression: Hypoxemia - Discharge Information Referrals: PCP,Unobtain [Primary Care Provider] - Sepsis Event Note - Evaluation Sepsis Screening Result: No Definite Risk - Focused Exam Vital Signs: Vital Signs Temp Pulse Resp BP Pulse Ox 03/11/19 16:22 22 H 99 03/11/19 15:44 36.9 C 87 22 H 160/89 H 77 L Date Exam was Performed: 03/11/19 Time Exam was Performed: 17:16 - My Orders Last 24 Hours: My Active Orders 03/11/19 15:54 EKG 12 Lead [EKG Documentation Completion] [RC] STAT CULTURE BLOOD [BC] Stat Blood Culture x2 Reflex Set [OM.PC] Stat 03/11/19 15:56 CULTURE BLOOD [BC] Stat 03/11/19 17:05 RT Aerosol Therapy [RC] ASDIRECTED 03/11/19 17:15 INR,PT,PROTHROMBIN TIME [COAG] Stat - Assessment/Plan Last 24 Hours: My Active Orders 03/11/19 15:54 EKG 12 Lead [EKG Documentation Completion] [RC] STAT CULTURE BLOOD [BC] Stat Blood Culture x2 Reflex Set [OM.PC] Stat 03/11/19 15:56 CULTURE BLOOD [BC] Stat 03/11/19 17:05 RT Aerosol Therapy [RC] ASDIRECTED 03/11/19 17:15 INR,PT,PROTHROMBIN TIME [COAG] Stat
[2019-03-11] MEDS ORDERED: Levofloxacin/Dextrose 5%-Water 750 MG in Premix Bag 1 BAG IV ONE (17:33)
[2019-03-11] MEDS ORDERED: Furosemide 40 MG/4 ML VIAL IVPUSH ONE (19:19)
[2019-03-11] MEDS ORDERED: Melatonin 3 MG Tab PO PRN (19:26)
--- NOTE | 2019-03-11 19:27 | PCM.HP.2 ---
H&P History of Present Illness - General Date of Service: 03/11/19 Admit Problem/Dx: Admission Diagnosis/Problem Admission Diagnosis/Problem Hypoxia Source of Information: Custodial Records History Limitations: Reports: Other (non-verbal at baseline ) - History of Present Illness Initial Comments - Free Text/Narative: Patient is a 73-year-old male with a past medical history of dementia, CHF, atrial fibrillation on warfarin presenting from [facility] with hypoxia of 3 days; patient is nonverbal at baseline. Per chart review: Patient normally saturates in the mid 80s however in the past 3 days has been saturating in the low 70s; patient also has been coughing more frequently; again this information has been relayed to me via chart review. Spoke to daughter's: Also poor historians; unaware of medical history and duration of symptoms at [facility]. - Related Data Allergies/Adverse Reactions: Allergies Allergy/AdvReac Type Severity Reaction Status Date / Time No Known Allergies Allergy Verified 03/11/19 19:19 Home Medications: Home Meds Warfarin [Coumadin] 5 mg PO ASDIRECTED 02/02/17 [History] Donepezil HCl [Aricept] 10 mg PO DAILY 7 Days #7 tablet 12/13/17 [Rx] Magnesium Hydroxide [Milk of Magnesia] 30 ml PO DAILY PRN 7 Days #1 cup [Rx] Metoprolol Tartrate 25 mg PO BID 7 Days #14 tablet 12/13/17 [Rx] Umeclidinium Brm/Vilanterol Tr [Anoro Ellipta 62.5-25 MCG] 1 inh IH DAILY 7 Days #7 inhaler 12/13/17 [Rx] bisacodyL [Dulcolax] 1 supp RECTAL ASDIRECTED PRN 7 Days #7 supp 12/13/17 [Rx] Memantine HCl [Namenda Xr] 28 mg PO DAILY 30 Days #30 cap.er 12/14/17 [Rx] Camphor/Menthol [Sarna Lotion] 1 applic TOP ASDIRECTED PRN 02/14/19 [History] Triamcinolone Acetonide [Nasacort] 2 spray NASBOTH DAILY 02/14/19 [History] Acetaminophen [Acetaminophen Extra Strength] 500 mg PO TID 03/11/19 [History] Albuterol [Ventolin HFA] 1 puff INH Q6H PRN 03/11/19 [History] Albuterol [Ventolin HFA] 2 puff INH Q6H PRN 03/11/19 [History] Camphor/Menthol [Sarna Lotion] 1 applic TOP DAILY PRN 03/11/19 [History] Memantine HCl [Namenda Xr] 28 mg PO DAILY 03/11/19 [History] Triamcinolone Acetonide [Nasacort] 2 sprays NS DAILY 03/11/19 [History] Warfarin [Coumadin] 4 mg PO ASDIRECTED 03/11/19 [History] Past Medical History - Past Health History Medical/Surgical History: Denies Medical/Surgical History Cardiovascular History: Reports: Afib, Hypertension Respiratory History: Reports: COPD Genitourinary History: Reports: Urinary Incontinence Neurological History: Reports: Alzheimers Disease Psychiatric History: Reports: Alzheimers Disease, Anxiety, Dementia, Depression Dermatologic History: Reports: Other (See Below) Other Dermatologic History: dry skin - Infectious Disease History Infectious Disease History: Reports: Chicken Pox, Measles - Past Surgical History Cardiovascular Surgical History: Reports: Other (See Below) Other Cardiovascular Surgeries/Procedures: cardioversion Neurological Surgical History: Reports: None Social & Family History - Family History Family Medical History: Noncontributory - Tobacco Use Smoking Status *Q: Former Smoker Used Tobacco, but Quit: Yes Month/Year Tobacco Last Used: 2015 Second Hand Smoke Exposure: No - Caffeine Use Caffeine Use: Reports: Coffee - Recreational Drug Use Recreational Drug Use: No H&P Review of Systems - Review of Systems: Review Of Systems: See Below General: Denies: Fever, Chills Pulmonary: Reports: Shortness of Breath, Cough. Denies: Sputum Cardiovascular: Denies: Chest Pain, Palpitations Review of Systems Comment:: pt. is non-verbal at baseline; does nod at times but unsure if pt. is comprehending questions: when asked if he has chest pain ; I placed my hand on his chest ; pt. smiled ; did not look distressed Exam - Exam Exam: See Below - Vital Signs Vital Signs: Last Vital Signs Temp 98.2 F 03/11/19 18:40 Pulse 73 03/11/19 18:40 Resp 24 H 03/11/19 18:40 BP 161/78 H 03/11/19 18:40 Pulse Ox 94 L 03/11/19 18:40 Weight: 220 lb - Exam Quality Assessment: Supplemental Oxygen General: Alert, Oriented, Other (non-verbal; unsure if he comprehends commands secondary to dementia ) HEENT: EOMI Neck: Supple, Trachea Midline Lungs: Other (tight BS in apices; diminshed BS in bases ; crackles apprecaited in left> right lung hernandez. minimal wheezing; +congestion ) Cardiovascular: Regular Rate, Regular Rhythm GI/Abdominal Exam: Soft, Non-Tender, Other (minimal JVD ) Extremities: Other (+3 to + pitting edema of lower extremitites ; non-tender) Skin: Warm, Dry Neuro Extensive - Mental Status: Alert, Other (non-verbal ast baseline; does not appear distressed during my examination ) Psychiatric: Alert, Normal Mood - Patient Data Lab Results Last 24 hrs: Laboratory Results - last 24 hr 03/11/19 03/11/19 03/11/19 Range/Units 15:56 15:56 15:56 WBC 11.10 H (4.0-11.0) K/uL RBC 4.24 L (4.50-5.90) M/uL Hgb 13.0 (13.0-17.0) g/dL Hct 41.4 (38.0-50.0) % MCV 97.6 (80.0-98.0) fL MCH 30.7 (27.0-32.0) pg MCHC 31.4 (31.0-37.0) g/dL RDW Std Deviation 54.6 (28.0-62.0) fl RDW Coeff of Yadiel 15 (11.0-15.0) % Plt Count 244 (150-400) K/uL MPV 11.00 (7.40-12.00) fL Neut % (Auto) 71.8 (48.0-80.0) % Lymph % (Auto) 14.7 L (16.0-40.0) % [place] % (Auto) 11.3 (0.0-15.0) % Eos % (Auto) 1.8 (0.0-7.0) % Baso % (Auto) 0.4 (0.0-1.5) % Neut # (Auto) 8.0 H (1.4-5.7) K/uL Lymph # (Auto) 1.6 (0.6-2.4) K/uL [place] # (Auto) 1.3 H (0.0-0.8) K/uL Eos # (Auto) 0.2 (0.0-0.7) K/uL Baso # (Auto) 0.0 (0.0-0.1) K/uL Nucleated RBC % 0.6 /100WBC Nucleated RBCs # 0 K/uL INR Lactate 1.7 (0.20-2.00) mmol/L Sodium 139 (136-148) mmol/L Potassium 4.8 (3.5-5.1) mmol/L Chloride 102 (98-107) mmol/L Carbon Dioxide 29.7 (21.0-32.0) mmol/L BUN 29 H (7.0-18.0) mg/dL Creatinine 1.1 (0.8-1.3) mg/dL Est Cr Clr Drug Dosing TNP Estimated GFR (MDRD) > 60.0 ml/min Glucose 122 H (74-106) mg/dL Calcium 8.7 (8.5-10.1) mg/dL Total Bilirubin 1.5 H (0.2-1.0) mg/dL AST 22 (15-37) IU/L ALT 50 (14-63) IU/L Alkaline Phosphatase 81 (46-116) U/L Troponin I < 0.050 (0.000-0.056) ng/mL B-Natriuretic Peptide (<100) PG/ML Total Protein 7.3 (6.4-8.2) g/dL Albumin 3.4 (3.4-5.0) g/dL Globulin 3.9 (2.6-4.0) g/dL Albumin/Globulin Ratio 0.9 (0.9-1.6) Lipase 215 (73-393) U/L Urine Color Urine Appearance Urine pH (5.0-8.0) Ur Specific [place] (1.001-1.035) Urine Protein (NEGATIVE) mg/dL Urine Glucose (UA) (NEGATIVE) mg/dL Urine Ketones (NEGATIVE) mg/dL Urine Occult Blood (NEGATIVE) Urine Nitrite (NEGATIVE) Urine Bilirubin (NEGATIVE) Urine Urobilinogen (<2.0) EU/dL Ur Leukocyte Esterase (NEGATIVE) Urine RBC (0-2/HPF) Urine WBC (0-5/HPF) Ur Epithelial Cells (NONE-FEW) Amorphous Sediment (NEGATIVE) Urine Bacteria (NEGATIVE) Urine Mucus (NONE-MOD) 03/11/19 03/11/19 03/11/19 Range/Units 15:56 15:56 16:43 WBC (4.0-11.0) K/uL RBC (4.50-5.90) M/uL Hgb (13.0-17.0) g/dL Hct (38.0-50.0) % MCV (80.0-98.0) fL MCH (27.0-32.0) pg MCHC (31.0-37.0) g/dL RDW Std Deviation (28.0-62.0) fl RDW Coeff of Yadiel (11.0-15.0) % Plt Count (150-400) K/uL MPV (7.40-12.00) fL Neut % (Auto) (48.0-80.0) % Lymph % (Auto) (16.0-40.0) % [place] % (Auto) (0.0-15.0) % Eos % (Auto) (0.0-7.0) % Baso % (Auto) (0.0-1.5) % Neut # (Auto) (1.4-5.7) K/uL Lymph # (Auto) (0.6-2.4) K/uL [place] # (Auto) (0.0-0.8) K/uL Eos # (Auto) (0.0-0.7) K/uL Baso # (Auto) (0.0-0.1) K/uL Nucleated RBC % /100WBC Nucleated RBCs # K/uL INR 1.92 Lactate (0.20-2.00) mmol/L Sodium (136-148) mmol/L Potassium (3.5-5.1) mmol/L Chloride (98-107) mmol/L Carbon Dioxide (21.0-32.0) mmol/L BUN (7.0-18.0) mg/dL Creatinine (0.8-1.3) mg/dL Est Cr Clr Drug Dosing Estimated GFR (MDRD) ml/min Glucose (74-106) mg/dL Calcium (8.5-10.1) mg/dL Total Bilirubin (0.2-1.0) mg/dL AST (15-37) IU/L ALT (14-63) IU/L Alkaline Phosphatase (46-116) U/L Troponin I (0.000-0.056) ng/mL B-Natriuretic Peptide 355 H (<100) PG/ML Total Protein (6.4-8.2) g/dL Albumin (3.4-5.0) g/dL Globulin (2.6-4.0) g/dL Albumin/Globulin Ratio (0.9-1.6) Lipase (73-393) U/L Urine Color YELLOW Urine Appearance SLT CLOUDY Urine pH 5.0 (5.0-8.0) Ur Specific [place] >= 1.030 (1.001-1.035) Urine Protein NEGATIVE (NEGATIVE) mg/dL Urine Glucose (UA) NEGATIVE (NEGATIVE) mg/dL Urine Ketones NEGATIVE (NEGATIVE) mg/dL Urine Occult Blood SMALL H (NEGATIVE) Urine Nitrite NEGATIVE (NEGATIVE) Urine Bilirubin NEGATIVE (NEGATIVE) Urine Urobilinogen 1.0 (<2.0) EU/dL Ur Leukocyte Esterase NEGATIVE (NEGATIVE) Urine RBC 0-1 (0-2/HPF) Urine WBC 0-1 (0-5/HPF) Ur Epithelial Cells NOT SEEN (NONE-FEW) Amorphous Sediment FEW (NEGATIVE) Urine Bacteria RARE (NEGATIVE) Urine Mucus RARE (NONE-MOD) Result Diagrams: 03/11/19 15:56 03/11/19 15:56 Patric Results Last 24 hrs: Microbiology 03/11/19 15:56 Influenza Type A Antigen Screen - Final Nasopharyngeal Swab NEGATIVE INFLUENZA A VIRUS AG REFERENCE RANGE: NEGATIVE Influenza Type B Antigen Screen - Final NEGATIVE INFLUENZA B VIRUS AG REFERENCE RANGE: NEGATIVE Sepsis Event Note - Evaluation Sepsis Screening Result: No Definite Risk - Focused Exam Vital Signs: Vital Signs Temp Pulse Resp BP Pulse Ox 03/11/19 18:40 98.2 F 73 24 H 161/78 H 94 L 03/11/19 18:17 98.2 F 76 20 147/85 H 96 03/11/19 17:49 79 20 100 03/11/19 17:06 71 20 143/78 H 100 03/11/19 16:22 22 H 99 03/11/19 15:44 98.5 F 87 22 H 160/89 H 77 L Date Exam was Performed: 03/11/19 Time Exam was Performed: 19:48 Problem List Initiated/Reviewed/Updated: Yes Orders Last 24hrs: Active Orders 24 hr Category Date Time Status Admission Status [Patient Status] [ADT] Stat ADT 03/11/19 17:40 Active Antiembolic Devices [RC] PER UNIT ROUTINE Care 03/11/19 19:24 Ordered EKG 12 Lead [EKG Documentation Completion] [RC] STAT Care 03/11/19 15:54 Active RT Aerosol Therapy [RC] ASDIRECTED Care 03/11/19 17:05 Active RT Aerosol Therapy [RC] ASDIRECTED Care 03/11/19 19:21 Ordered Up With Assistance [RC] ASDIRECTED Care 03/11/19 19:02 Active Heart Healthy Diet [DIET] Diet 03/12/19 Breakfast Ordered Echo Comp wo Cont [US] Urgent Exams 03/12/19 07:00 Ordered CULTURE BLOOD [BC] Stat Lab 03/11/19 15:56 Received CULTURE BLOOD [BC] Stat Lab 03/11/19 16:05 Received Albuterol/Ipratropium [DuoNeb 3.0-0.5 MG/3 ML] Med 03/11/19 22:00 Ordered 3 ml NEB Q4HRRT Melatonin Med 03/11/19 19:26 Ordered 3 mg PO BEDTIME PRN Pantoprazole [ProTONIX] Med 03/12/19 09:00 Ordered 40 mg PO DAILY Blood Culture x2 Reflex Set [OM.PC] Stat Oth 03/11/19 15:54 Ordered SCD [Sequential Compression Device] [OM.PC] Routine Oth 03/11/19 19:24 Ordered Code Status [Resuscitation Status] Routine Resus Stat 03/11/19 18:59 Ordered Medication Orders Albuterol/Ipratropium (Duoneb 3.0-0.5 Mg/3 Ml) 3 ml NEB Q4HRRT SHRUTHI Melatonin (Melatonin) 3 mg PO BEDTIME PRN PRN Reason: Insomnia Pantoprazole Sodium (Protonix) 40 mg PO DAILY SHRUTHI Assessment/Plan Comment:: Assessment: 1. Acute hypoxic respiratory failure 2. Elevated BNP 3. PMH : COPD, frontal lobe dementia, Afib, COPD Plan: Admit to observation. DNR/DNI. Continue Warfarin; SCDs for now as well. GI: pantoprazole. 1. Received Levaquin in ED; will reassess in AM if abx. are necessary moving forward; due to elevated BNP and concerns for fluid overload will give a onetime dose of 40 IV lasix now and reassess. Continue duo-neb treatments q4hr scheduled. CXR suggests left sided pleural effusion: more or less stable from previous x- ray ; continue to monitor. 2. Continue home medications for dementia, BP and rhythm control; continue Warfarin at dosing scheduled by pharmacy. Hold COPD medications. 3. Repeat CBC/CMP in AM; marginal increase in WBC; pt .however afebrile and not- tachycardic
[2019-03-11] MEDS ORDERED: Magnesium Hydroxide 400 MG/5 ML Susp 30 ML Cup PO PRN (19:44)
[2019-03-11] MEDS ORDERED: Bisacodyl 10 MG Supp RECTAL PRN (19:44)
[2019-03-11] MEDS: Metoprolol Tartrate 25 MG Tab PO SCH (21:05)
[2019-03-11] MEDS: Albuterol/Ipratropium 3.0-0.5 MG/3 ML Neb Soln NEB SCH (21:20)
[2019-03-12] MEDS: Albuterol/Ipratropium 3.0-0.5 MG/3 ML Neb Soln NEB SCH ×5 (02:20→23:43)
[2019-03-12 05:32] LABS: BLOOD UREA NITROGEN,BUN 23 mg/dL (7.0-18.0); CARBON DIOXIDE,CO2 34.4 mmol/L (21.0-32.0); CHLORIDE,CL 105 mmol/L (98-107); GLUCOSE RANDOM 103 mg/dL (74-106); POTASSIUM,K 4.3 mmol/L (3.5-5.1); SODIUM,NA 142 mmol/L (136-148)
[2019-03-12] MEDS: Metoprolol Tartrate 25 MG Tab PO SCH ×2 (09:57→21:03)
[2019-03-12] MEDS: Pantoprazole 40 MG Tab.CR PO SCH (09:57)
[2019-03-12] MEDS: Donepezil 10 MG Tab PO SCH (09:57)
[2019-03-12] MEDS: MEMANTINE HCL 28 MG PO SCH (10:51)
[2019-03-12] MEDS: methylPREDNISolone Sodium Succinate 125 MG/2 ML SDV IVPUSH SCH ×2 (10:56→18:15)
--- NOTE | 2019-03-12 13:43 | PCM.PN ---
- General Info Date of Service: 03/12/19 Subjective Update: Bedside: non-verbal at baseline; does not appear to be distressed or in discomfort. - Review of Systems General: Denies: Fever, Chills HEENT: Reports: No Symptoms Pulmonary: Reports: Shortness of Breath, Cough Cardiovascular: Reports: No Symptoms Gastrointestinal: Reports: No Symptoms Neurological: Denies: Headache - Patient Data Vitals - Most Recent: Last Vital Signs Temp 95.4 F 03/12/19 12:33 Pulse 65 03/12/19 12:33 Resp 20 03/12/19 12:33 BP 137/76 03/12/19 12:33 Pulse Ox 98 03/12/19 12:33 Weight - Most Recent: 220 lb I&O - Last 24 Hours: Intake & Output 03/11/19 03/12/19 03/12/19 22:59 06:59 14:59 Intake Total 500 Output Total 590 Balance -90 Lab Results Last 24 Hours: Laboratory Results - last 24 hr 03/11/19 03/11/19 03/11/19 Range/Units 15:56 15:56 15:56 WBC 11.10 H (4.0-11.0) K/uL RBC 4.24 L (4.50-5.90) M/uL Hgb 13.0 (13.0-17.0) g/dL Hct 41.4 (38.0-50.0) % MCV 97.6 (80.0-98.0) fL MCH 30.7 (27.0-32.0) pg MCHC 31.4 (31.0-37.0) g/dL RDW Std Deviation 54.6 (28.0-62.0) fl RDW Coeff of Yadiel 15 (11.0-15.0) % Plt Count 244 (150-400) K/uL MPV 11.00 (7.40-12.00) fL Neut % (Auto) 71.8 (48.0-80.0) % Lymph % (Auto) 14.7 L (16.0-40.0) % [place] % (Auto) 11.3 (0.0-15.0) % Eos % (Auto) 1.8 (0.0-7.0) % Baso % (Auto) 0.4 (0.0-1.5) % Neut # (Auto) 8.0 H (1.4-5.7) K/uL Lymph # (Auto) 1.6 (0.6-2.4) K/uL [place] # (Auto) 1.3 H (0.0-0.8) K/uL Eos # (Auto) 0.2 (0.0-0.7) K/uL Baso # (Auto) 0.0 (0.0-0.1) K/uL Nucleated RBC % 0.6 /100WBC Nucleated RBCs # 0 K/uL INR Lactate 1.7 (0.20-2.00) mmol/L Sodium 139 (136-148) mmol/L Potassium 4.8 (3.5-5.1) mmol/L Chloride 102 (98-107) mmol/L Carbon Dioxide 29.7 (21.0-32.0) mmol/L BUN 29 H (7.0-18.0) mg/dL Creatinine 1.1 (0.8-1.3) mg/dL Est Cr Clr Drug Dosing TNP Estimated GFR (MDRD) > 60.0 ml/min Glucose 122 H (74-106) mg/dL Calcium 8.7 (8.5-10.1) mg/dL Total Bilirubin 1.5 H (0.2-1.0) mg/dL AST 22 (15-37) IU/L ALT 50 (14-63) IU/L Alkaline Phosphatase 81 (46-116) U/L Troponin I < 0.050 (0.000-0.056) ng/mL B-Natriuretic Peptide (<100) PG/ML Total Protein 7.3 (6.4-8.2) g/dL Albumin 3.4 (3.4-5.0) g/dL Globulin 3.9 (2.6-4.0) g/dL Albumin/Globulin Ratio 0.9 (0.9-1.6) Lipase 215 (73-393) U/L Urine Color Urine Appearance Urine pH (5.0-8.0) Ur Specific [place] (1.001-1.035) Urine Protein (NEGATIVE) mg/dL Urine Glucose (UA) (NEGATIVE) mg/dL Urine Ketones (NEGATIVE) mg/dL Urine Occult Blood (NEGATIVE) Urine Nitrite (NEGATIVE) Urine Bilirubin (NEGATIVE) Urine Urobilinogen (<2.0) EU/dL Ur Leukocyte Esterase (NEGATIVE) Urine RBC (0-2/HPF) Urine WBC (0-5/HPF) Ur Epithelial Cells (NONE-FEW) Amorphous Sediment (NEGATIVE) Urine Bacteria (NEGATIVE) Urine Mucus (NONE-MOD) 03/11/19 03/11/19 03/11/19 Range/Units 15:56 15:56 16:43 WBC (4.0-11.0) K/uL RBC (4.50-5.90) M/uL Hgb (13.0-17.0) g/dL Hct (38.0-50.0) % MCV (80.0-98.0) fL MCH (27.0-32.0) pg MCHC (31.0-37.0) g/dL RDW Std Deviation (28.0-62.0) fl RDW Coeff of Yadiel (11.0-15.0) % Plt Count (150-400) K/uL MPV (7.40-12.00) fL Neut % (Auto) (48.0-80.0) % Lymph % (Auto) (16.0-40.0) % [place] % (Auto) (0.0-15.0) % Eos % (Auto) (0.0-7.0) % Baso % (Auto) (0.0-1.5) % Neut # (Auto) (1.4-5.7) K/uL Lymph # (Auto) (0.6-2.4) K/uL [place] # (Auto) (0.0-0.8) K/uL Eos # (Auto) (0.0-0.7) K/uL Baso # (Auto) (0.0-0.1) K/uL Nucleated RBC % /100WBC Nucleated RBCs # K/uL INR 1.92 Lactate (0.20-2.00) mmol/L Sodium (136-148) mmol/L Potassium (3.5-5.1) mmol/L Chloride (98-107) mmol/L Carbon Dioxide (21.0-32.0) mmol/L BUN (7.0-18.0) mg/dL Creatinine (0.8-1.3) mg/dL Est Cr Clr Drug Dosing Estimated GFR (MDRD) ml/min Glucose (74-106) mg/dL Calcium (8.5-10.1) mg/dL Total Bilirubin (0.2-1.0) mg/dL AST (15-37) IU/L ALT (14-63) IU/L Alkaline Phosphatase (46-116) U/L Troponin I (0.000-0.056) ng/mL B-Natriuretic Peptide 355 H (<100) PG/ML Total Protein (6.4-8.2) g/dL Albumin (3.4-5.0) g/dL Globulin (2.6-4.0) g/dL Albumin/Globulin Ratio (0.9-1.6) Lipase (73-393) U/L Urine Color YELLOW Urine Appearance SLT CLOUDY Urine pH 5.0 (5.0-8.0) Ur Specific [place] >= 1.030 (1.001-1.035) Urine Protein NEGATIVE (NEGATIVE) mg/dL Urine Glucose (UA) NEGATIVE (NEGATIVE) mg/dL Urine Ketones NEGATIVE (NEGATIVE) mg/dL Urine Occult Blood SMALL H (NEGATIVE) Urine Nitrite NEGATIVE (NEGATIVE) Urine Bilirubin NEGATIVE (NEGATIVE) Urine Urobilinogen 1.0 (<2.0) EU/dL Ur Leukocyte Esterase NEGATIVE (NEGATIVE) Urine RBC 0-1 (0-2/HPF) Urine WBC 0-1 (0-5/HPF) Ur Epithelial Cells NOT SEEN (NONE-FEW) Amorphous Sediment FEW (NEGATIVE) Urine Bacteria RARE (NEGATIVE) Urine Mucus RARE (NONE-MOD) 03/12/19 03/12/19 Range/Units 04:55 04:55 WBC 10.39 (4.0-11.0) K/uL RBC 4.05 L (4.50-5.90) M/uL Hgb 12.2 L (13.0-17.0) g/dL Hct 39.3 (38.0-50.0) % MCV 97.0 (80.0-98.0) fL MCH 30.1 (27.0-32.0) pg MCHC 31.0 (31.0-37.0) g/dL RDW Std Deviation 53.6 (28.0-62.0) fl RDW Coeff of Yadiel 15 (11.0-15.0) % Plt Count 215 (150-400) K/uL MPV 10.40 (7.40-12.00) fL Neut % (Auto) 74.6 (48.0-80.0) % Lymph % (Auto) 11.7 L (16.0-40.0) % [place] % (Auto) 11.8 (0.0-15.0) % Eos % (Auto) 1.6 (0.0-7.0) % Baso % (Auto) 0.3 (0.0-1.5) % Neut # (Auto) 7.7 H (1.4-5.7) K/uL Lymph # (Auto) 1.2 (0.6-2.4) K/uL [place] # (Auto) 1.2 H (0.0-0.8) K/uL Eos # (Auto) 0.2 (0.0-0.7) K/uL Baso # (Auto) 0.0 (0.0-0.1) K/uL Nucleated RBC % 0.0 /100WBC Nucleated RBCs # 0 K/uL INR Lactate (0.20-2.00) mmol/L Sodium 142 (136-148) mmol/L Potassium 4.3 (3.5-5.1) mmol/L Chloride 105 (98-107) mmol/L Carbon Dioxide 34.4 H (21.0-32.0) mmol/L BUN 23 H (7.0-18.0) mg/dL Creatinine 1.0 (0.8-1.3) mg/dL Est Cr Clr Drug Dosing 74.21 Estimated GFR (MDRD) > 60.0 ml/min Glucose 103 (74-106) mg/dL Calcium 8.7 (8.5-10.1) mg/dL Total Bilirubin 1.5 H (0.2-1.0) mg/dL AST 18 (15-37) IU/L ALT 46 (14-63) IU/L Alkaline Phosphatase 66 (46-116) U/L Troponin I (0.000-0.056) ng/mL B-Natriuretic Peptide (<100) PG/ML Total Protein 6.6 (6.4-8.2) g/dL Albumin 2.9 L (3.4-5.0) g/dL Globulin 3.7 (2.6-4.0) g/dL Albumin/Globulin Ratio 0.8 L (0.9-1.6) Lipase (73-393) U/L Urine Color Urine Appearance Urine pH (5.0-8.0) Ur Specific [place] (1.001-1.035) Urine Protein (NEGATIVE) mg/dL Urine Glucose (UA) (NEGATIVE) mg/dL Urine Ketones (NEGATIVE) mg/dL Urine Occult Blood (NEGATIVE) Urine Nitrite (NEGATIVE) Urine Bilirubin (NEGATIVE) Urine Urobilinogen (<2.0) EU/dL Ur Leukocyte Esterase (NEGATIVE) Urine RBC (0-2/HPF) Urine WBC (0-5/HPF) Ur Epithelial Cells (NONE-FEW) Amorphous Sediment (NEGATIVE) Urine Bacteria (NEGATIVE) Urine Mucus (NONE-MOD) Patric Results Last 24 Hours: Microbiology 03/11/19 15:56 Influenza Type A Antigen Screen - Final Nasopharyngeal Swab NEGATIVE INFLUENZA A VIRUS AG REFERENCE RANGE: NEGATIVE Influenza Type B Antigen Screen - Final NEGATIVE INFLUENZA B VIRUS AG REFERENCE RANGE: NEGATIVE Med Orders - Current: Current Medications Albuterol/Ipratropium (Duoneb 3.0-0.5 Mg/3 Ml) 3 ml NEB Q6HRRT [facility] Bisacodyl (Dulcolax) 10 mg RECTAL ASDIRECTED PRN PRN Reason: Constipation Donepezil HCl (Aricept) 10 mg PO DAILY [facility] Last Admin: 03/12/19 09:57 Dose: 10 mg Levofloxacin/Dextrose 750 mg/ (Premix) 150 mls @ 100 mls/hr IV Q24H [facility] Magnesium Hydroxide (Milk Of Magnesia) 30 ml PO DAILY PRN PRN Reason: Constipation Melatonin (Melatonin) 3 mg PO BEDTIME PRN PRN Reason: Insomnia Methylprednisolone Sodium Succinate (Solu-Medrol) 125 mg IVPUSH Q8H [facility] Last Admin: 03/12/19 10:56 Dose: 125 mg Metoprolol Tartrate (Lopressor) 25 mg PO BID [facility] Last Admin: 03/12/19 09:57 Dose: 25 mg Pantoprazole Sodium (Protonix) 40 mg PO DAILY [facility] Last Admin: 03/12/19 09:57 Dose: 40 mg Memantine Hcl 28 Mg 1 each PO DAILY [facility] Last Admin: 03/12/19 10:51 Dose: Not Given Warfarin Sodium (Coumadin) 4 mg PO MoWeFr@1400 [facility] Warfarin Sodium (Coumadin) 5 mg PO SuTuThSa@1400 [facility] Discontinued Medications Albuterol/Ipratropium (Duoneb 3.0-0.5 Mg/3 Ml) 3 ml NEB ONETIME ONE Stop: 03/11/19 17:05 Last Admin: 03/11/19 17:21 Dose: 3 ml Albuterol/Ipratropium (Duoneb 3.0-0.5 Mg/3 Ml) 3 ml NEB Q4HRRT [facility] Last Admin: 03/12/19 09:20 Dose: Not Given Furosemide (Lasix) 40 mg IVPUSH NOW ONE Stop: 03/11/19 19:20 Last Admin: 03/11/19 19:51 Dose: 40 mg Levofloxacin/Dextrose 750 mg/ (Premix) 150 mls @ 100 mls/hr IV ONETIME ONE Stop: 03/11/19 19:02 Last Admin: 03/11/19 17:44 Dose: 100 mls/hr Levofloxacin (Levaquin) 750 mg PO ONETIME ONE Stop: 03/11/19 17:07 Last Admin: 03/11/19 17:48 Dose: Not Given - Exam Quality Assessment: Supplemental Oxygen General: Alert, Cooperative, No Acute Distress HEENT: EOMI, Mucous Membr. Moist/[place] Neck: Supple Lungs: Other Sepsis Event Note - Evaluation Sepsis Screening Result: No Definite Risk - Focused Exam Vital Signs: Vital Signs Temp Pulse Pulse Resp BP BP Pulse Ox 03/12/19 12:33 95.4 F 65 20 137/76 98 03/12/19 09:57 88 157/74 H 03/12/19 07:58 98.2 F 85 18 136/79 92 L 03/12/19 04:10 150/72 H 03/12/19 04:00 97.9 F 72 18 168/75 H 95 Date Exam was Performed: 03/12/19 Time Exam was Performed: 14:23 - Problem List Review Problem List Initiated/Reviewed/Updated: Yes - My Orders Last 24 Hours: My Active Orders 03/11/19 18:59 Code Status [Resuscitation Status] Routine 03/11/19 19:02 Up With Assistance [RC] ASDIRECTED 03/11/19 19:21 RT Aerosol Therapy [RC] ASDIRECTED 03/11/19 19:24 Antiembolic Devices [RC] PER UNIT ROUTINE SCD [Sequential Compression Device] [OM.PC] Routine 03/11/19 19:26 Melatonin 3 mg PO BEDTIME PRN 03/11/19 19:44 Magnesium Hydroxide [Milk of Magnesia] 30 ml PO DAILY PRN bisacodyL [Dulcolax] 10 mg RECTAL ASDIRECTED PRN 03/11/19 21:00 Metoprolol Tartrate [Lopressor] 25 mg PO BID 03/12/19 07:00 Echo Comp wo Cont [US] Urgent 03/12/19 09:00 Donepezil [Aricept] 10 mg PO DAILY Pantoprazole [ProTONIX] 40 mg PO DAILY Patient's Own Medication [Ptom] 1 each PO DAILY 03/12/19 11:34 Consult to Speech Language Pathology [[facility] Evaluation and Treatment] [CONS] Routine 03/12/19 14:00 Warfarin [Coumadin] 4 mg PO MoWeFr@1400 03/12/19 Breakfast Heart Healthy Diet [DIET] 03/13/19 14:00 Warfarin [Coumadin] 5 mg PO SuTuThSa@1400 - Plan Plan:: Assessment: 1. Acute hypoxic respiratory failure 2. Elevated BNP 3. PMH : COPD, frontal lobe dementia, Afib, COPD Plan: Admit to observation. DNR/DNI. Continue Warfarin; SCDs for now as well. GI: pantoprazole. Diet: per swallow study: concerns for cough/aspiration risk: thickened nectar feeds 1. Received Levaquin in ED; Continue Levaquin daily+ will add Iv methylprednisolone q 8 as well. . due to elevated BNP and concerns for fluid overload will give a onetime dose of 40 IV lasix now and 40 po BID daily.. Continue duo-neb treatments q6hr scheduled. CXR suggests left sided pleural effusion: more or less stable from previous x- ray ; continue to monitor. 2. Continue home medications for dementia, BP and rhythm control; continue Warfarin at dosing scheduled by pharmacy. Hold COPD medications. 3. Repeat CBC/CMP in AM; marginal increase in WBC; pt .however afebrile and not- tachycardic
[2019-03-12] MEDS ORDERED: Warfarin 2 MG Tab PO SCH (14:00)
[2019-03-12] MEDS: Furosemide 40 MG Tab PO SCH (14:27)
[2019-03-12] MEDS ORDERED: Metoprolol Tartrate 25 MG Tab PO ONE (16:06)
[2019-03-12] MEDS: Levofloxacin/Dextrose 5%-Water 750 MG in Premix Bag 1 BAG IV SCH (16:33)
[2019-03-13] MEDS: methylPREDNISolone Sodium Succinate 125 MG/2 ML SDV IVPUSH SCH ×2 (02:14→09:00)
[2019-03-13] MEDS: Albuterol/Ipratropium 3.0-0.5 MG/3 ML Neb Soln NEB SCH ×3 (06:14→17:47)
[2019-03-13 06:58] LABS: CARBON DIOXIDE,CO2 32.3 mmol/L (21.0-32.0); POTASSIUM,K 4.8 mmol/L (3.5-5.1)
[2019-03-13] MEDS: Donepezil 10 MG Tab PO SCH (08:58)
[2019-03-13] MEDS: Metoprolol Tartrate 25 MG Tab PO SCH (08:58)
[2019-03-13] MEDS: Furosemide 40 MG Tab PO SCH (08:59)
[2019-03-13] MEDS: Pantoprazole 40 MG Tab.CR PO SCH (08:59)
[2019-03-13] MEDS: MEMANTINE HCL 28 MG PO SCH (09:09)
--- NOTE | 2019-03-13 14:31 | CT ---
HISTORY: Effusion. TECHNIQUE: CT chest without contrast. COMPARISON: None. FINDINGS: Lungs: Moderate respiratory motion artifact. Moderate size left pleural effusion. Moderate size area of consolidation with convex margins in the left lower lobe extending to the pleura. Similar area of consolidation with convex margins in the periphery of the left upper lobe extending to the pleura. Small right pleural effusion. Mild atelectasis right lower lobe. No pneumothorax. Mediastinum: Thoracic aorta is not dilated. Aortic atherosclerotic calcifications. No pericardial effusion. Lymph nodes: No enlarged lymph nodes. Musculoskeletal: Degenerative changes of the spine. Chronic appearing compression deformity of T8 vertebral body with severe height loss. Chronic appearing compression deformities with mild height loss at a few additional thoracic vertebral bodies. Upper abdomen: Unremarkable. IMPRESSION: 1. Moderate left and small right pleural effusions. 2. Areas of consolidation in the left lower and upper lobes may be from round atelectasis. Pneumonia and underlying pulmonary masses are not excluded. CT follow-up is recommended. Please note that all CT scans at this facility use dose modulation, iterative reconstruction, and/or weight-based dosing when appropriate to reduce radiation dose to as low as reasonably achievable. Dictated by Everett Ziegler MD @ Mar 13 2019 2:23PM Signed by Dr. Everett Ziegler @ Mar 13 2019 2:29PM
[2019-03-13] MEDS: Warfarin 5 MG Tab PO SCH (15:19)
[2019-03-13] MEDS ORDERED: Furosemide 40 MG/4 ML VIAL IVPUSH SCH (16:00)
[2019-03-13] MEDS: Levofloxacin/Dextrose 5%-Water 750 MG in Premix Bag 1 BAG IV SCH (16:29)
--- NOTE | 2019-03-13 16:49 | PCM.PN ---
<Bishnu Dodge - Last Filed: 03/13/19 16:42> - General Info Date of Service: 03/13/19 Subjective Update: Non-verbal at baseline; does not appear in any distress. No other changes from yesterday; family mentioned he did have some episodes of sweating; but pt. was afebrile and otherwise did not appear distressed. - Review of Systems General: Denies: Fever Pulmonary: Denies: Cough, Sputum Cardiovascular: Reports: No Symptoms Gastrointestinal: Reports: No Symptoms Neurological: Reports: Pre-Existing Deficit - Patient Data Vitals - Most Recent: Last Vital Signs Temp 98.0 F 03/13/19 15:44 Pulse 93 03/13/19 15:44 Resp 18 03/13/19 15:44 BP 125/57 L 03/13/19 15:44 Pulse Ox 97 03/13/19 15:44 Weight - Most Recent: 99.79 kg I&O - Last 24 Hours: Intake & Output 03/13/19 03/13/19 03/13/19 06:59 14:59 22:59 Intake Total 100 150 Output Total 393 Balance -293 150 Lab Results Last 24 Hours: Laboratory Results - last 24 hr 03/12/19 03/12/19 03/13/19 Range/Units 04:55 23:04 06:20 WBC 12.91 H (4.0-11.0) K/uL RBC 4.22 L (4.50-5.90) M/uL Hgb 12.8 L (13.0-17.0) g/dL Hct 41.3 (38.0-50.0) % MCV 97.9 (80.0-98.0) fL MCH 30.3 (27.0-32.0) pg MCHC 31.0 (31.0-37.0) g/dL RDW Std Deviation 53.3 (28.0-62.0) fl RDW Coeff of Yadiel 15 (11.0-15.0) % Plt Count 230 (150-400) K/uL MPV 10.70 (7.40-12.00) fL Neut % (Auto) 93.4 H (48.0-80.0) % Lymph % (Auto) 4.3 L (16.0-40.0) % [place] % (Auto) 2.2 (0.0-15.0) % Eos % (Auto) 0.0 (0.0-7.0) % Baso % (Auto) 0.1 (0.0-1.5) % Neut # (Auto) 12.1 H (1.4-5.7) K/uL Lymph # (Auto) 0.6 (0.6-2.4) K/uL [place] # (Auto) 0.3 (0.0-0.8) K/uL Eos # (Auto) 0.0 (0.0-0.7) K/uL Baso # (Auto) 0.0 (0.0-0.1) K/uL Nucleated RBC % 0.0 /100WBC Nucleated RBCs # 0 K/uL INR Sodium (136-148) mmol/L Potassium (3.5-5.1) mmol/L Chloride (98-107) mmol/L Carbon Dioxide (21.0-32.0) mmol/L BUN (7.0-18.0) mg/dL Creatinine (0.8-1.3) mg/dL Est Cr Clr Drug Dosing mL/min Estimated GFR (MDRD) ml/min Glucose (74-106) mg/dL POC Glucose 122 H (60-110) mg/dL Calcium (8.5-10.1) mg/dL Magnesium 2.1 (1.8-2.4) mg/dL Total Bilirubin (0.2-1.0) mg/dL AST (15-37) IU/L ALT (14-63) IU/L Alkaline Phosphatase (46-116) U/L Total Protein (6.4-8.2) g/dL Albumin (3.4-5.0) g/dL Globulin (2.6-4.0) g/dL Albumin/Globulin Ratio (0.9-1.6) 03/13/19 03/13/19 Range/Units 06:20 06:20 WBC (4.0-11.0) K/uL RBC (4.50-5.90) M/uL Hgb (13.0-17.0) g/dL Hct (38.0-50.0) % MCV (80.0-98.0) fL MCH (27.0-32.0) pg MCHC (31.0-37.0) g/dL RDW Std Deviation (28.0-62.0) fl RDW Coeff of Yadiel (11.0-15.0) % Plt Count (150-400) K/uL MPV (7.40-12.00) fL Neut % (Auto) (48.0-80.0) % Lymph % (Auto) (16.0-40.0) % [place] % (Auto) (0.0-15.0) % Eos % (Auto) (0.0-7.0) % Baso % (Auto) (0.0-1.5) % Neut # (Auto) (1.4-5.7) K/uL Lymph # (Auto) (0.6-2.4) K/uL [place] # (Auto) (0.0-0.8) K/uL Eos # (Auto) (0.0-0.7) K/uL Baso # (Auto) (0.0-0.1) K/uL Nucleated RBC % /100WBC Nucleated RBCs # K/uL INR 2.27 Sodium 144 (136-148) mmol/L Potassium 4.8 (3.5-5.1) mmol/L Chloride 105 (98-107) mmol/L Carbon Dioxide 32.3 H (21.0-32.0) mmol/L BUN 34 H (7.0-18.0) mg/dL Creatinine 1.2 (0.8-1.3) mg/dL Est Cr Clr Drug Dosing 61.84 mL/min Estimated GFR (MDRD) 59.0 ml/min Glucose 165 H (74-106) mg/dL POC Glucose (60-110) mg/dL Calcium 9.1 (8.5-10.1) mg/dL Magnesium (1.8-2.4) mg/dL Total Bilirubin 1.3 H (0.2-1.0) mg/dL AST 14 L (15-37) IU/L ALT 43 (14-63) IU/L Alkaline Phosphatase 67 (46-116) U/L Total Protein 6.9 (6.4-8.2) g/dL Albumin 3.0 L (3.4-5.0) g/dL Globulin 3.9 (2.6-4.0) g/dL Albumin/Globulin Ratio 0.8 L (0.9-1.6) Patric Results Last 24 Hours: Microbiology 03/11/19 15:56 Aerobic Blood Culture - Preliminary Blood - Venous NO GROWTH AFTER 2 DAYS Anaerobic Blood Culture - Preliminary NO GROWTH AFTER 2 DAYS 03/11/19 16:05 Aerobic Blood Culture - Preliminary Blood - Venous - Lab Draw NO GROWTH AFTER 1 DAY Anaerobic Blood Culture - Preliminary NO GROWTH AFTER 1 DAY Med Orders - Current: Current Medications Albuterol/Ipratropium (Duoneb 3.0-0.5 Mg/3 Ml) 3 ml NEB Q6HRRT [facility] Last Admin: 03/13/19 11:29 Dose: 3 ml Bisacodyl (Dulcolax) 10 mg RECTAL ASDIRECTED PRN PRN Reason: Constipation Donepezil HCl (Aricept) 10 mg PO DAILY [facility] Last Admin: 03/13/19 08:58 Dose: 10 mg Furosemide (Lasix) 40 mg PO DAILY [facility] Last Admin: 03/13/19 08:59 Dose: 40 mg Furosemide (Lasix) 40 mg IVPUSH NOW [facility] Levofloxacin/Dextrose 750 mg/ (Premix) 150 mls @ 100 mls/hr IV Q24H [facility] Last Admin: 03/13/19 16:29 Dose: 100 mls/hr Magnesium Hydroxide (Milk Of Magnesia) 30 ml PO DAILY PRN PRN Reason: Constipation Melatonin (Melatonin) 3 mg PO BEDTIME PRN PRN Reason: Insomnia Metoprolol Tartrate (Lopressor) 25 mg PO BID [facility] Last Admin: 03/13/19 08:58 Dose: 25 mg Pantoprazole Sodium (Protonix) 40 mg PO DAILY [facility] Last Admin: 03/13/19 08:59 Dose: 40 mg Memantine Hcl 28 Mg 1 each PO DAILY [facility] Last Admin: 03/13/19 09:09 Dose: 1 each Prednisone (Prednisone) 40 mg PO BID [facility] Warfarin Sodium (Coumadin) 4 mg PO MoWeFr@1400 [facility] Last Admin: 03/12/19 14:22 Dose: 4 mg Warfarin Sodium (Coumadin) 5 mg PO SuTuThSa@1400 [facility] Last Admin: 03/13/19 15:19 Dose: 5 mg Discontinued Medications Albuterol/Ipratropium (Duoneb 3.0-0.5 Mg/3 Ml) 3 ml NEB ONETIME ONE Stop: 01/02/20 17:05 Last Admin: 03/11/19 17:21 Dose: 3 ml Albuterol/Ipratropium (Duoneb 3.0-0.5 Mg/3 Ml) 3 ml NEB Q4HRRT [facility] Last Admin: 03/12/19 09:20 Dose: Not Given Furosemide (Lasix) 40 mg IVPUSH NOW ONE Stop: 03/11/19 19:20 Last Admin: 03/11/19 19:51 Dose: 40 mg Levofloxacin/Dextrose 750 mg/ (Premix) 150 mls @ 100 mls/hr IV ONETIME ONE Stop: 03/11/19 19:02 Last Admin: 03/11/19 17:44 Dose: 100 mls/hr Levofloxacin (Levaquin) 750 mg PO ONETIME ONE Stop: 03/11/19 17:07 Last Admin: 03/11/19 17:48 Dose: Not Given Methylprednisolone Sodium Succinate (Solu-Medrol) 125 mg IVPUSH Q8H [facility] Last Admin: 03/13/19 09:00 Dose: 125 mg Metoprolol Tartrate (Lopressor) 25 mg PO ONETIME ONE Stop: 03/12/19 16:07 Last Admin: 03/12/19 16:33 Dose: 25 mg - Exam Quality Assessment: Supplemental Oxygen General: Alert, No Acute Distress HEENT: EOMI Lungs: Other (interval improvement; prolonged expiratory phase w/ diminhed BS in bases b/l ) GI/Abdominal Exam: Soft, Non-Tender Extremities: Other (improved l/e edema ) Skin: Warm, Dry Neurological: Other (baseline ) Psy/Mental Status: Alert Sepsis Event Note - Evaluation Sepsis Screening Result: No Definite Risk - Focused Exam Vital Signs: Vital Signs Temp Pulse Pulse Resp BP BP Pulse Ox 03/13/19 15:44 98.0 F 93 18 125/57 L 97 03/13/19 11:32 98.1 F 83 18 132/59 L 97 03/13/19 08:58 113 H 141/82 H 03/13/19 07:37 97.8 F 93 22 H 142/82 H 93 L Date Exam was Performed: 03/13/19 Time Exam was Performed: 16:42 - Problem List Review Problem List Initiated/Reviewed/Updated: Yes - My Orders Last 24 Hours: My Active Orders 03/13/19 14:00 Warfarin [Coumadin] 5 mg PO SuTuThSa@1400 01/04/20 16:00 Furosemide [Lasix] 40 mg IVPUSH NOW 03/14/19 09:00 predniSONE 40 mg PO BID - Plan Plan:: Assessment: 1. Acute hypoxic respiratory failure 2. Elevated BNP 3. PMH : COPD, frontal lobe dementia, Afib, COPD Plan: Admit to observation. DNR/DNI. Continue Warfarin; SCDs for now as well. GI: pantoprazole. Diet: per swallow study: concerns for cough/aspiration risk: thickened nectar feeds 1. Received Levaquin in ED; Continue Levaquin daily+ switched to prednisone 40 daily PO . . due to elevated BNP and concerns for fluid overload will give a onetime dose of 40 IV lasix now and 40 po daily.. Continue duo-neb treatments q6hr scheduled. CXR suggests left sided pleural effusion: more or less stable from previous x- ray ; but concerns for possible empyema : CT -chest ordered; discussed with family possibility of requiring to tap fluid to alleviate breathing difficulty and or congestion; but most likely in the outpatient setting secondary to current stable status; family understood; will reconsider with imaging and labs. Titrate o2 today. Prompted family to discuss goals of care 2. Continue home medications for dementia, BP and rhythm control; continue Warfarin at dosing scheduled by pharmacy. Hold COPD medications. 3. Repeat CBC/CMP in AM; marginal increase in WBC (possibly steroids) ; pt .however afebrile and not-tachycardic <Ondina Mack - Last Filed: 03/22/19 20:18> - Patient Data Vitals - Most Recent: Last Vital Signs Temp 35.9 C 03/17/19 11:41 Pulse 64 03/17/19 11:41 Resp 22 H 03/17/19 11:41 BP 166/78 H 03/17/19 11:41 Pulse Ox 97 03/17/19 11:41 Med Orders - Current: Current Medications Discontinued Medications Albuterol/Ipratropium (Duoneb 3.0-0.5 Mg/3 Ml) 3 ml NEB ONETIME ONE Stop: 03/11/19 17:05 Last Admin: 03/11/19 17:21 Dose: 3 ml Albuterol/Ipratropium (Duoneb 3.0-0.5 Mg/3 Ml) 3 ml NEB Q4HRRT [facility] Last Admin: 03/12/19 09:20 Dose: Not Given Albuterol/Ipratropium (Duoneb 3.0-0.5 Mg/3 Ml) 3 ml NEB Q6HRRT [facility] Last Admin: 03/13/19 17:47 Dose: 3 ml Albuterol/Ipratropium (Duoneb 3.0-0.5 Mg/3 Ml) 3 ml NEB Q6HRRT [facility] Last Admin: 03/16/19 06:01 Dose: 3 ml Albuterol/Ipratropium (Duoneb 3.0-0.5 Mg/3 Ml) 3 ml NEB Q6HRRT PRN PRN Reason: Shortness of Breath Last Admin: 03/16/19 23:50 Dose: 3 ml Bisacodyl (Dulcolax) 10 mg RECTAL ASDIRECTED PRN PRN Reason: Constipation Bisacodyl (Dulcolax) 10 mg RECTAL ASDIRECTED PRN PRN Reason: Constipation Last Admin: 03/15/19 12:12 Dose: 10 mg Donepezil HCl (Aricept) 10 mg PO DAILY [facility] Last Admin: 03/13/19 08:58 Dose: 10 mg Donepezil HCl (Aricept) 10 mg PO DAILY [facility] Last Admin: 03/17/19 09:02 Dose: 10 mg Furosemide (Lasix) 40 mg IVPUSH NOW ONE Stop: 03/11/19 19:20 Last Admin: 03/11/19 19:51 Dose: 40 mg Furosemide (Lasix) 40 mg PO DAILY [facility] Last Admin: 03/17/19 09:03 Dose: 40 mg Furosemide (Lasix) 40 mg IVPUSH NOW [facility] Last Admin: 03/13/19 18:56 Dose: 40 mg Levofloxacin/Dextrose 750 mg/ (Premix) 150 mls @ 100 mls/hr IV ONETIME ONE Stop: 03/11/19 19:02 Last Admin: 03/11/19 17:44 Dose: 100 mls/hr Levofloxacin/Dextrose 750 mg/ (Premix) 150 mls @ 100 mls/hr IV Q24H [facility] Last Admin: 03/13/19 16:29 Dose: 100 mls/hr Piperacillin Sod/Tazobactam (Sod 3.375 gm/ Sodium Chloride) 50 mls @ 100 mls/ hr IV Q8H [facility] Last Admin: 03/15/19 02:35 Dose: 100 mls/hr Vancomycin HCl 1.5 gm/ Premix 300 mls @ 200 mls/hr IV Q12H [facility] Last Admin: 03/16/19 00:07 Dose: Not Given Piperacillin Sod/Tazobactam (Sod 3.375 gm/ Sodium Chloride) 50 mls @ 100 mls/ hr IV Q6H [facility] Last Admin: 03/16/19 09:48 Dose: 100 mls/hr Vancomycin HCl 1.25 gm/ Sodium (Chloride) 250 mls @ 166 mls/hr IV Q12H [facility] Last Admin: 03/16/19 01:07 Dose: 166 mls/hr Vancomycin HCl 1.25 gm/ Sodium (Chloride) 250 mls @ 166 mls/hr IV Q12H [facility] Last Admin: 03/16/19 14:11 Dose: Not Given Levofloxacin (Levaquin) 750 mg PO ONETIME ONE Stop: 03/11/19 17:07 Last Admin: 03/11/19 17:48 Dose: Not Given Levofloxacin (Levaquin) 750 mg PO Q24H [facility] Last Admin: 03/17/19 14:05 Dose: 750 mg Magnesium Hydroxide (Milk Of Magnesia) 30 ml PO DAILY PRN PRN Reason: Constipation Last Admin: 03/14/19 09:08 Dose: 30 ml Melatonin (Melatonin) 3 mg PO BEDTIME PRN PRN Reason: Insomnia Methylprednisolone Sodium Succinate (Solu-Medrol) 125 mg IVPUSH Q8H [facility] Last Admin: 03/13/19 09:00 Dose: 125 mg Metoprolol Tartrate (Lopressor) 25 mg PO BID [facility] Last Admin: 03/17/19 09:03 Dose: 25 mg Metoprolol Tartrate (Lopressor) 25 mg PO ONETIME ONE Stop: 03/12/19 16:07 Last Admin: 03/12/19 16:33 Dose: 25 mg Pantoprazole Sodium (Protonix) 40 mg PO DAILY [facility] Last Admin: 03/17/19 09:02 Dose: 40 mg Memantine Hcl 28 Mg 1 each PO DAILY [facility] Last Admin: 03/17/19 09:17 Dose: Not Given Prednisone (Prednisone) 40 mg PO BID [facility] Last Admin: 03/14/19 09:59 Dose: Not Given Prednisone (Prednisone) 40 mg PO BID [facility] Last Admin: 03/15/19 09:57 Dose: 40 mg Prednisone (Prednisone) 40 mg PO DAILY [facility] Last Admin: 03/17/19 09:03 Dose: 40 mg Vancomycin HCl (Pharmacy To Dose - Vancomycin) 1 dose .XX ASDIRECTED [facility] Warfarin Sodium (Coumadin) 4 mg PO MoWeFr@1400 [facility] Last Admin: 03/12/19 14:22 Dose: 4 mg Warfarin Sodium (Coumadin) 5 mg PO SuTuThSa@1400 [facility] Last Admin: 03/14/19 15:15 Dose: Not Given Warfarin Sodium (Coumadin Ask) 1 each PO DAILY@1400 [facility] Last Admin: 03/17/19 14:45 Dose: Not Given Warfarin Sodium (Coumadin) 4 mg PO DAILY@1400 ONE Stop: 03/14/19 14:31 Last Admin: 03/14/19 14:39 Dose: 4 mg Warfarin Sodium (Coumadin) 5 mg PO DAILY@1400 ONE Stop: 03/16/19 14:16 Last Admin: 03/16/19 14:25 Dose: 5 mg Warfarin Sodium (Coumadin) 5 mg PO DAILY@1400 ONE Stop: 03/17/19 14:31 Last Admin: 03/17/19 14:46 Dose: 5 mg - Problem List & Annotations (1) Pleural effusion SNOMED Code(s): 12704382 Code(s): J90 - PLEURAL EFFUSION, NOT ELSEWHERE CLASSIFIED Status: Acute (2) HCAP (healthcare-associated pneumonia) SNOMED Code(s): 594543997, 058722049 Code(s): J18.9 - PNEUMONIA, UNSPECIFIED ORGANISM Status: Acute (3) Hypoxemia SNOMED Code(s): 413431357 Code(s): R09.02 - HYPOXEMIA Status: Acute (4) Acute exacerbation of CHF (congestive heart failure) SNOMED Code(s): 406301948, 87833988980333 Code(s): I50.9 - HEART FAILURE, UNSPECIFIED Status: Acute (5) Chronic atrial fibrillation SNOMED Code(s): 838396216 Code(s): I48.2 - CHRONIC ATRIAL FIBRILLATION * DO NOT USE * Status: Acute - Plan Plan:: I have seen and evaluated the patient and agree with the residents note unless specified in my note
[2019-03-13] MEDS ORDERED: Bisacodyl 10 MG Supp RECTAL PRN (23:10)
[2019-03-14] MEDS: Metoprolol Tartrate 25 MG Tab PO SCH ×3 (00:03→20:55)
[2019-03-14] MEDS: Albuterol/Ipratropium 3.0-0.5 MG/3 ML Neb Soln NEB SCH ×4 (00:03→17:32)
[2019-03-14 06:56] LABS: CARBON DIOXIDE,CO2 35.7 mmol/L (21.0-32.0); POTASSIUM,K 4.8 mmol/L (3.5-5.1)
[2019-03-14] MEDS ORDERED: predniSONE 20 MG Tab PO SCH (09:00)
[2019-03-14] MEDS: Donepezil 10 MG Tab PO SCH (09:08)
[2019-03-14] MEDS: Furosemide 40 MG Tab PO SCH (09:09)
[2019-03-14] MEDS: Pantoprazole 40 MG Tab.CR PO SCH (09:09)
[2019-03-14] MEDS: MEMANTINE HCL 28 MG PO SCH (09:58)
[2019-03-14] MEDS: predniSONE 20 MG Tab PO SCH ×2 (10:26→20:55)
[2019-03-14] MEDS: Piperacillin/Tazobactam 3.375 GM in Sodium Chloride 0.9% 50 ML IV SCH ×2 (10:26→17:20)
[2019-03-14] MEDS: VANCOMYCIN/WATER FOR INJ (PEG) 1.5 GM in Premix Bag 1 BAG IV SCH ×2 (11:15→22:54)
--- NOTE | 2019-03-14 13:17 | PCM.PN ---
- General Info Date of Service: 03/14/19 Admission Dx/Problem (Free Text): Admission Diagnosis/Problem Admission Diagnosis/Problem Hypoxia Subjective Update: More Alert and awake today, on chair, smiling and pleasantly confused, close to his baseline per family at bedside - Review of Systems Systems Review Comment:: unable to obatin due to dementia, non verbal at baseline - Patient Data Vitals - Most Recent: Last Vital Signs Temp 36.5 C 03/14/19 12:00 Pulse 94 03/14/19 12:00 Resp 22 H 03/14/19 12:00 BP 119/57 L 03/14/19 12:00 Pulse Ox 93 L 03/14/19 12:00 Weight - Most Recent: 99.79 kg I&O - Last 24 Hours: Intake & Output 03/13/19 03/14/19 03/14/19 22:59 06:59 14:59 Intake Total 750 500 350 Output Total 400 Balance 350 500 350 Lab Results Last 24 Hours: Laboratory Results - last 24 hr 03/14/19 03/14/19 03/14/19 Range/Units 06:15 06:15 08:37 WBC 19.17 H (4.0-11.0) K/uL RBC 4.05 L (4.50-5.90) M/uL Hgb 12.3 L (13.0-17.0) g/dL Hct 39.8 (38.0-50.0) % MCV 98.3 H (80.0-98.0) fL MCH 30.4 (27.0-32.0) pg MCHC 30.9 L (31.0-37.0) g/dL RDW Std Deviation 54.8 (28.0-62.0) fl RDW Coeff of Yadiel 15 (11.0-15.0) % Plt Count 227 (150-400) K/uL MPV 10.60 (7.40-12.00) fL Neutrophils % (Manual) 89 H (48.0-80.0) % Lymphocytes % (Manual) 4 L (16.0-40.0) % Monocytes % (Manual) 7 (0.0-15.0) % Nucleated RBC % 0.0 /100WBC Absolute Seg Neuts 17.1 H (1.4-5.7) Lymphocytes # (Manual) 0.8 (0.6-2.4) Monocytes # (Manual) 1.3 H (0.0-0.8) INR 2.90 Sodium 144 (136-148) mmol/L Potassium 4.8 (3.5-5.1) mmol/L Chloride 105 (98-107) mmol/L Carbon Dioxide 35.7 H (21.0-32.0) mmol/L BUN 47 H (7.0-18.0) mg/dL Creatinine 1.2 (0.8-1.3) mg/dL Est Cr Clr Drug Dosing 61.84 mL/min Estimated GFR (MDRD) 59.0 ml/min Glucose 133 H (74-106) mg/dL Calcium 8.7 (8.5-10.1) mg/dL Total Bilirubin 1.0 (0.2-1.0) mg/dL AST 15 (15-37) IU/L ALT 41 (14-63) IU/L Alkaline Phosphatase 61 (46-116) U/L Total Protein 6.2 L (6.4-8.2) g/dL Albumin 2.9 L (3.4-5.0) g/dL Globulin 3.3 (2.6-4.0) g/dL Albumin/Globulin Ratio 0.9 (0.9-1.6) Patric Results Last 24 Hours: Microbiology 03/11/19 16:05 Aerobic Blood Culture - Preliminary Blood - Venous - Lab Draw NO GROWTH AFTER 2 DAYS Anaerobic Blood Culture - Preliminary NO GROWTH AFTER 2 DAYS 03/11/19 15:56 Aerobic Blood Culture - Preliminary Blood - Venous NO GROWTH AFTER 2 DAYS Anaerobic Blood Culture - Preliminary NO GROWTH AFTER 2 DAYS Med Orders - Current: Current Medications Albuterol/Ipratropium (Duoneb 3.0-0.5 Mg/3 Ml) 3 ml NEB Q6HRRT [facility] Last Admin: 03/14/19 11:55 Dose: 3 ml Bisacodyl (Dulcolax) 10 mg RECTAL ASDIRECTED PRN PRN Reason: Constipation Donepezil HCl (Aricept) 10 mg PO DAILY [facility] Last Admin: 03/14/19 09:08 Dose: 10 mg Furosemide (Lasix) 40 mg PO DAILY [facility] Last Admin: 03/14/19 09:09 Dose: 40 mg Furosemide (Lasix) 40 mg IVPUSH NOW [facility] Last Admin: 03/13/19 18:56 Dose: 40 mg Piperacillin Sod/Tazobactam (Sod 3.375 gm/ Sodium Chloride) 50 mls @ 100 mls/ hr IV Q8H [facility] Last Admin: 03/14/19 10:26 Dose: 100 mls/hr Vancomycin HCl 1.5 gm/ Premix 300 mls @ 200 mls/hr IV Q12H [facility] Last Admin: 03/14/19 11:15 Dose: 200 mls/hr Magnesium Hydroxide (Milk Of Magnesia) 30 ml PO DAILY PRN PRN Reason: Constipation Last Admin: 03/14/19 09:08 Dose: 30 ml Melatonin (Melatonin) 3 mg PO BEDTIME PRN PRN Reason: Insomnia Metoprolol Tartrate (Lopressor) 25 mg PO BID [facility] Last Admin: 03/14/19 09:08 Dose: 25 mg Pantoprazole Sodium (Protonix) 40 mg PO DAILY [facility] Last Admin: 03/14/19 09:09 Dose: 40 mg Memantine Hcl 28 Mg 1 each PO DAILY [facility] Last Admin: 03/14/19 09:58 Dose: Not Given Prednisone (Prednisone) 40 mg PO BID [facility] Last Admin: 03/14/19 10:26 Dose: 40 mg Vancomycin HCl (Pharmacy To Dose - Vancomycin) 1 dose .XX ASDIRECTED [facility] Warfarin Sodium (Coumadin) 4 mg PO MoWeFr@1400 [facility] Last Admin: 03/12/19 14:22 Dose: 4 mg Warfarin Sodium (Coumadin) 5 mg PO SuTuThSa@1400 [facility] Last Admin: 03/13/19 15:19 Dose: 5 mg Discontinued Medications Albuterol/Ipratropium (Duoneb 3.0-0.5 Mg/3 Ml) 3 ml NEB ONETIME ONE Stop: 03/11/19 17:05 Last Admin: 03/11/19 17:21 Dose: 3 ml Albuterol/Ipratropium (Duoneb 3.0-0.5 Mg/3 Ml) 3 ml NEB Q4HRRT [facility] Last Admin: 03/12/19 09:20 Dose: Not Given Albuterol/Ipratropium (Duoneb 3.0-0.5 Mg/3 Ml) 3 ml NEB Q6HRRT [facility] Last Admin: 03/13/19 17:47 Dose: 3 ml Bisacodyl (Dulcolax) 10 mg RECTAL ASDIRECTED PRN PRN Reason: Constipation Donepezil HCl (Aricept) 10 mg PO DAILY [facility] Last Admin: 03/13/19 08:58 Dose: 10 mg Furosemide (Lasix) 40 mg IVPUSH NOW ONE Stop: 03/11/19 19:20 Last Admin: 03/11/19 19:51 Dose: 40 mg Levofloxacin/Dextrose 750 mg/ (Premix) 150 mls @ 100 mls/hr IV ONETIME ONE Stop: 03/11/19 19:02 Last Admin: 03/11/19 17:44 Dose: 100 mls/hr Levofloxacin/Dextrose 750 mg/ (Premix) 150 mls @ 100 mls/hr IV Q24H [facility] Last Admin: 03/13/19 16:29 Dose: 100 mls/hr Levofloxacin (Levaquin) 750 mg PO ONETIME ONE Stop: 03/11/19 17:07 Last Admin: 03/11/19 17:48 Dose: Not Given Methylprednisolone Sodium Succinate (Solu-Medrol) 125 mg IVPUSH Q8H [facility] Last Admin: 03/13/19 09:00 Dose: 125 mg Metoprolol Tartrate (Lopressor) 25 mg PO ONETIME ONE Stop: 03/12/19 16:07 Last Admin: 03/12/19 16:33 Dose: 25 mg Prednisone (Prednisone) 40 mg PO BID [facility] Last Admin: 03/14/19 09:59 Dose: Not Given - Exam General: Alert, Cooperative, No Acute Distress Neck: Supple, Trachea Midline Lungs: Decreased Breath Sounds Cardiovascular: Regular Rate, Irregular Rhythm GI/Abdominal Exam: Normal Bowel Sounds, Soft, Non-Tender Peripheral Pulses: 3+: Dorsalis Pedis (L), Dorsalis Pedis (R) Sepsis Event Note - Evaluation Sepsis Screening Result: No Definite Risk - Focused Exam Vital Signs: Vital Signs Temp Pulse Pulse Resp BP BP Pulse Ox 03/14/19 12:00 36.5 C 94 22 H 119/57 L 93 L 03/14/19 09:08 90 131/76 03/14/19 07:58 36.6 C 93 16 131/70 93 L 03/14/19 04:00 36.6 C 83 20 134/71 96 Date Exam was Performed: 03/14/19 Time Exam was Performed: 13:12 - Problem List & Annotations (1) Pleural effusion SNOMED Code(s): 58292730 Code(s): J90 - PLEURAL EFFUSION, NOT ELSEWHERE CLASSIFIED Status: Acute Current Visit: Yes (2) HCAP (healthcare-associated pneumonia) SNOMED Code(s): 382628884, 342524420 Code(s): J18.9 - PNEUMONIA, UNSPECIFIED ORGANISM Status: Acute Current Visit: Yes (3) Hypoxemia SNOMED Code(s): 031254479 Code(s): R09.02 - HYPOXEMIA Status: Acute Current Visit: Yes (4) Acute exacerbation of CHF (congestive heart failure) SNOMED Code(s): 405195668, 71154503157959 Code(s): I50.9 - HEART FAILURE, UNSPECIFIED Status: Acute Current Visit: No (5) Chronic atrial fibrillation SNOMED Code(s): 523322494 Code(s): I48.2 - CHRONIC ATRIAL FIBRILLATION * DO NOT USE * Status: Acute Current Visit: No - Problem List Review Problem List Initiated/Reviewed/Updated: Yes - My Orders Last 24 Hours: My Active Orders 03/14/19 10:15 Pharmacy to Dose - Vancomycin 1 dose .XX ASDIRECTED Piperacillin/Tazobactam [Piperacil-Tazobact] 3.375 gm Sodium Chloride 0.9% [ Normal Saline] 50 ml IV Q8H 03/14/19 11:00 Vancomycin/Water For Inj (Peg) [Vancomycin 1.5 GM/300 ML Bag] 1.5 gm Premix Bag 1 bag IV Q12H 03/14/19 12:37 Admission Status [Patient Status] [ADT] Routine - Plan Plan:: A/P: CT chest shows possible atelectasis vs PNA Pleural effusion is moderate and stable, no empyema WBC count jumped further today despite of decreasing the steroids dose , so switched patient to IV vancomycin and zosyn for now Will deescalate if no fevers and WBC trends down by trung Cont PO lasix Continue duo-neb treatments q6hr scheduled. Continue home medications for dementia, BP and rhythm control; continue Warfarin at dosing scheduled by pharmacy. Hold COPD medications.
[2019-03-14] MEDS ORDERED: Warfarin 2 MG Tab PO ONE (14:30)
[2019-03-14] MEDS: Warfarin 5 MG Tab PO SCH (15:15)
[2019-03-15] MEDS: Albuterol/Ipratropium 3.0-0.5 MG/3 ML Neb Soln NEB SCH ×5 (01:11→23:10)
[2019-03-15] MEDS: Piperacillin/Tazobactam 3.375 GM in Sodium Chloride 0.9% 50 ML IV SCH ×4 (02:35→20:35)
[2019-03-15 06:27] LABS: CARBON DIOXIDE,CO2 35.5 mmol/L (21.0-32.0); POTASSIUM,K 4.9 mmol/L (3.5-5.1)
[2019-03-15] MEDS: Pantoprazole 40 MG Tab.CR PO SCH (09:56)
[2019-03-15] MEDS: Metoprolol Tartrate 25 MG Tab PO SCH ×2 (09:56→20:35)
[2019-03-15] MEDS: Donepezil 10 MG Tab PO SCH (09:56)
[2019-03-15] MEDS: predniSONE 20 MG Tab PO SCH (09:57)
[2019-03-15] MEDS: Furosemide 40 MG Tab PO SCH (09:57)
[2019-03-15] MEDS: MEMANTINE HCL 28 MG PO SCH (10:57)
[2019-03-15] MEDS: VANCOMYCIN/WATER FOR INJ (PEG) 1.5 GM in Premix Bag 1 BAG IV SCH (11:19)
--- NOTE | 2019-03-15 13:04 | PCM.PN ---
<Bishnu Dodge - Last Filed: 03/15/19 13:08> - General Info Date of Service: 03/15/19 Subjective Update: Non-verbal at baseline; Sitting upright in chair ; does not appear distressed Functional Status: Reports: Pain Controlled - Patient Data Vitals - Most Recent: Last Vital Signs Temp 97.5 F 03/15/19 11:03 Pulse 84 03/15/19 11:03 Resp 28 H 03/15/19 11:03 BP 120/65 03/15/19 11:03 Pulse Ox 95 03/15/19 11:03 Weight - Most Recent: 99.79 kg I&O - Last 24 Hours: Intake & Output 03/14/19 03/15/19 03/15/19 22:59 06:59 14:59 Intake Total 650 700 Output Total 0 Balance 650 700 Lab Results Last 24 Hours: Laboratory Results - last 24 hr 03/15/19 03/15/19 03/15/19 Range/Units 05:45 05:45 08:02 WBC 14.03 H (4.0-11.0) K/uL RBC 4.09 L (4.50-5.90) M/uL Hgb 12.4 L (13.0-17.0) g/dL Hct 40.4 (38.0-50.0) % MCV 98.8 H (80.0-98.0) fL MCH 30.3 (27.0-32.0) pg MCHC 30.7 L (31.0-37.0) g/dL RDW Std Deviation 55.9 (28.0-62.0) fl RDW Coeff of Yadiel 15 (11.0-15.0) % Plt Count 211 (150-400) K/uL MPV 10.80 (7.40-12.00) fL Neut % (Auto) 91.9 H (48.0-80.0) % Lymph % (Auto) 4.3 L (16.0-40.0) % [place] % (Auto) 3.7 (0.0-15.0) % Eos % (Auto) 0.1 (0.0-7.0) % Baso % (Auto) 0.0 (0.0-1.5) % Neut # (Auto) 12.9 H (1.4-5.7) K/uL Lymph # (Auto) 0.6 (0.6-2.4) K/uL [place] # (Auto) 0.5 (0.0-0.8) K/uL Eos # (Auto) 0.0 (0.0-0.7) K/uL Baso # (Auto) 0.0 (0.0-0.1) K/uL Nucleated RBC % 0.0 /100WBC Nucleated RBCs # 0 K/uL INR 3.63 Sodium 144 (136-148) mmol/L Potassium 4.9 (3.5-5.1) mmol/L Chloride 105 (98-107) mmol/L Carbon Dioxide 35.5 H (21.0-32.0) mmol/L BUN 48 H (7.0-18.0) mg/dL Creatinine 1.2 (0.8-1.3) mg/dL Est Cr Clr Drug Dosing 61.84 mL/min Estimated GFR (MDRD) 59.0 ml/min Glucose 142 H (74-106) mg/dL Calcium 8.9 (8.5-10.1) mg/dL Phosphorus 3.2 (2.6-4.7) mg/dL Magnesium 2.3 (1.8-2.4) mg/dL Patric Results Last 24 Hours: Microbiology 03/11/19 16:05 Aerobic Blood Culture - Preliminary Blood - Venous - Lab Draw NO GROWTH AFTER 3 DAYS Anaerobic Blood Culture - Preliminary NO GROWTH AFTER 3 DAYS 03/11/19 15:56 Aerobic Blood Culture - Preliminary Blood - Venous NO GROWTH AFTER 3 DAYS Anaerobic Blood Culture - Preliminary NO GROWTH AFTER 3 DAYS Med Orders - Current: Current Medications Albuterol/Ipratropium (Duoneb 3.0-0.5 Mg/3 Ml) 3 ml NEB Q6HRRT [facility] Last Admin: 03/15/19 11:10 Dose: 3 ml Bisacodyl (Dulcolax) 10 mg RECTAL ASDIRECTED PRN PRN Reason: Constipation Last Admin: 03/15/19 12:12 Dose: 10 mg Donepezil HCl (Aricept) 10 mg PO DAILY [facility] Last Admin: 03/15/19 09:56 Dose: 10 mg Furosemide (Lasix) 40 mg PO DAILY [facility] Last Admin: 03/15/19 09:57 Dose: 40 mg Furosemide (Lasix) 40 mg IVPUSH NOW [facility] Last Admin: 03/13/19 18:56 Dose: 40 mg Vancomycin HCl 1.5 gm/ Premix 300 mls @ 200 mls/hr IV Q12H [facility] Last Admin: 03/15/19 11:19 Dose: 200 mls/hr Piperacillin Sod/Tazobactam (Sod 3.375 gm/ Sodium Chloride) 50 mls @ 100 mls/ hr IV Q6H [facility] Last Admin: 03/15/19 09:55 Dose: 100 mls/hr Magnesium Hydroxide (Milk Of Magnesia) 30 ml PO DAILY PRN PRN Reason: Constipation Last Admin: 03/14/19 09:08 Dose: 30 ml Melatonin (Melatonin) 3 mg PO BEDTIME PRN PRN Reason: Insomnia Metoprolol Tartrate (Lopressor) 25 mg PO BID [facility] Last Admin: 03/15/19 09:56 Dose: 25 mg Pantoprazole Sodium (Protonix) 40 mg PO DAILY [facility] Last Admin: 03/15/19 09:56 Dose: 40 mg Memantine Hcl 28 Mg 1 each PO DAILY [facility] Last Admin: 03/15/19 10:57 Dose: Not Given Prednisone (Prednisone) 40 mg PO DAILY [facility] Vancomycin HCl (Pharmacy To Dose - Vancomycin) 1 dose .XX ASDIRECTED [facility] Warfarin Sodium (Coumadin Ask) 1 each PO DAILY@1400 [facility] Discontinued Medications Albuterol/Ipratropium (Duoneb 3.0-0.5 Mg/3 Ml) 3 ml NEB ONETIME ONE Stop: 03/11/19 17:05 Last Admin: 03/11/19 17:21 Dose: 3 ml Albuterol/Ipratropium (Duoneb 3.0-0.5 Mg/3 Ml) 3 ml NEB Q4HRRT [facility] Last Admin: 03/12/19 09:20 Dose: Not Given Albuterol/Ipratropium (Duoneb 3.0-0.5 Mg/3 Ml) 3 ml NEB Q6HRRT [facility] Last Admin: 03/13/19 17:47 Dose: 3 ml Bisacodyl (Dulcolax) 10 mg RECTAL ASDIRECTED PRN PRN Reason: Constipation Donepezil HCl (Aricept) 10 mg PO DAILY [facility] Last Admin: 03/13/19 08:58 Dose: 10 mg Furosemide (Lasix) 40 mg IVPUSH NOW ONE Stop: 03/11/19 19:20 Last Admin: 03/11/19 19:51 Dose: 40 mg Levofloxacin/Dextrose 750 mg/ (Premix) 150 mls @ 100 mls/hr IV ONETIME ONE Stop: 03/11/19 19:02 Last Admin: 03/11/19 17:44 Dose: 100 mls/hr Levofloxacin/Dextrose 750 mg/ (Premix) 150 mls @ 100 mls/hr IV Q24H [facility] Last Admin: 03/13/19 16:29 Dose: 100 mls/hr Piperacillin Sod/Tazobactam (Sod 3.375 gm/ Sodium Chloride) 50 mls @ 100 mls/ hr IV Q8H [facility] Last Admin: 03/15/19 02:35 Dose: 100 mls/hr Levofloxacin (Levaquin) 750 mg PO ONETIME ONE Stop: 03/11/19 17:07 Last Admin: 03/11/19 17:48 Dose: Not Given Methylprednisolone Sodium Succinate (Solu-Medrol) 125 mg IVPUSH Q8H [facility] Last Admin: 03/13/19 09:00 Dose: 125 mg Metoprolol Tartrate (Lopressor) 25 mg PO ONETIME ONE Stop: 03/12/19 16:07 Last Admin: 03/12/19 16:33 Dose: 25 mg Prednisone (Prednisone) 40 mg PO BID [facility] Last Admin: 03/14/19 09:59 Dose: Not Given Prednisone (Prednisone) 40 mg PO BID [facility] Last Admin: 03/15/19 09:57 Dose: 40 mg Warfarin Sodium (Coumadin) 4 mg PO MoWeFr@1400 [facility] Last Admin: 03/12/19 14:22 Dose: 4 mg Warfarin Sodium (Coumadin) 5 mg PO SuTuThSa@1400 [facility] Last Admin: 03/14/19 15:15 Dose: Not Given Warfarin Sodium (Coumadin) 4 mg PO DAILY@1400 ONE Stop: 03/14/19 14:31 Last Admin: 03/14/19 14:39 Dose: 4 mg - Exam General: Alert, No Acute Distress HEENT: EOMI, Mucous Membr. Moist/[place] Lungs: Other (minimal expiratory coarse BS; moving air well; some diminshement at bases ) Cardiovascular: Regular Rate, Irregular Rhythm GI/Abdominal Exam: Soft, Non-Tender Extremities: No Pedal Edema Neurological: Other (non-verbal ) Psy/Mental Status: Alert Sepsis Event Note - Evaluation Sepsis Screening Result: No Definite Risk - Focused Exam Vital Signs: Vital Signs Temp Pulse Pulse Resp BP BP Pulse Ox 03/15/19 11:03 97.5 F 84 28 H 120/65 95 03/15/19 09:56 85 153/67 H 03/15/19 04:00 97.7 F 89 18 128/83 95 Date Exam was Performed: 03/15/19 Time Exam was Performed: 13:08 - Problem List Review Problem List Initiated/Reviewed/Updated: Yes - Plan Plan:: A/P: CT chest shows possible atelectasis vs PNA Pleural effusion is moderate and stable, no empyema WBC IMPROVED today deescalated steroids , continue IV abx for today; possibly d/ c tomorrow on Levaquin; Discussed case with daughter; Daughter is keen to avoid any aggressive therapy moving forward; discussed respiratory failure might worsen and pt. might need require a pleural fluid tap; daughter expressed understanding and is moving towards a comfort care position. Cont PO lasix Continue duo-neb treatments q6hr scheduled. Continue home medications for dementia, BP and rhythm control; continue Warfarin at dosing scheduled by pharmacy. Hold COPD medications. <Ondina Mack - Last Filed: 03/22/19 20:19> - Patient Data Vitals - Most Recent: Last Vital Signs Temp 35.9 C 03/17/19 11:41 Pulse 64 03/17/19 11:41 Resp 22 H 03/17/19 11:41 BP 166/78 H 03/17/19 11:41 Pulse Ox 97 03/17/19 11:41 Med Orders - Current: Current Medications Discontinued Medications Albuterol/Ipratropium (Duoneb 3.0-0.5 Mg/3 Ml) 3 ml NEB ONETIME ONE Stop: 03/11/19 17:05 Last Admin: 03/11/19 17:21 Dose: 3 ml Albuterol/Ipratropium (Duoneb 3.0-0.5 Mg/3 Ml) 3 ml NEB Q4HRRT [facility] Last Admin: 03/12/19 09:20 Dose: Not Given Albuterol/Ipratropium (Duoneb 3.0-0.5 Mg/3 Ml) 3 ml NEB Q6HRRT [facility] Last Admin: 03/13/19 17:47 Dose: 3 ml Albuterol/Ipratropium (Duoneb 3.0-0.5 Mg/3 Ml) 3 ml NEB Q6HRRT [facility] Last Admin: 03/16/19 06:01 Dose: 3 ml Albuterol/Ipratropium (Duoneb 3.0-0.5 Mg/3 Ml) 3 ml NEB Q6HRRT PRN PRN Reason: Shortness of Breath Last Admin: 03/16/19 23:50 Dose: 3 ml Bisacodyl (Dulcolax) 10 mg RECTAL ASDIRECTED PRN PRN Reason: Constipation Bisacodyl (Dulcolax) 10 mg RECTAL ASDIRECTED PRN PRN Reason: Constipation Last Admin: 03/15/19 12:12 Dose: 10 mg Donepezil HCl (Aricept) 10 mg PO DAILY [facility] Last Admin: 03/13/19 08:58 Dose: 10 mg Donepezil HCl (Aricept) 10 mg PO DAILY [facility] Last Admin: 03/17/19 09:02 Dose: 10 mg Furosemide (Lasix) 40 mg IVPUSH NOW ONE Stop: 03/11/19 19:20 Last Admin: 03/11/19 19:51 Dose: 40 mg Furosemide (Lasix) 40 mg PO DAILY [facility] Last Admin: 03/17/19 09:03 Dose: 40 mg Furosemide (Lasix) 40 mg IVPUSH NOW [facility] Last Admin: 03/13/19 18:56 Dose: 40 mg Levofloxacin/Dextrose 750 mg/ (Premix) 150 mls @ 100 mls/hr IV ONETIME ONE Stop: 03/11/19 19:02 Last Admin: 03/11/19 17:44 Dose: 100 mls/hr Levofloxacin/Dextrose 750 mg/ (Premix) 150 mls @ 100 mls/hr IV Q24H [facility] Last Admin: 03/13/19 16:29 Dose: 100 mls/hr Piperacillin Sod/Tazobactam (Sod 3.375 gm/ Sodium Chloride) 50 mls @ 100 mls/ hr IV Q8H [facility] Last Admin: 03/15/19 02:35 Dose: 100 mls/hr Vancomycin HCl 1.5 gm/ Premix 300 mls @ 200 mls/hr IV Q12H [facility] Last Admin: 03/16/19 00:07 Dose: Not Given Piperacillin Sod/Tazobactam (Sod 3.375 gm/ Sodium Chloride) 50 mls @ 100 mls/ hr IV Q6H [facility] Last Admin: 03/16/19 09:48 Dose: 100 mls/hr Vancomycin HCl 1.25 gm/ Sodium (Chloride) 250 mls @ 166 mls/hr IV Q12H [facility] Last Admin: 03/16/19 01:07 Dose: 166 mls/hr Vancomycin HCl 1.25 gm/ Sodium (Chloride) 250 mls @ 166 mls/hr IV Q12H [facility] Last Admin: 03/16/19 14:11 Dose: Not Given Levofloxacin (Levaquin) 750 mg PO ONETIME ONE Stop: 03/11/19 17:07 Last Admin: 03/11/19 17:48 Dose: Not Given Levofloxacin (Levaquin) 750 mg PO Q24H [facility] Last Admin: 03/17/19 14:05 Dose: 750 mg Magnesium Hydroxide (Milk Of Magnesia) 30 ml PO DAILY PRN PRN Reason: Constipation Last Admin: 03/14/19 09:08 Dose: 30 ml Melatonin (Melatonin) 3 mg PO BEDTIME PRN PRN Reason: Insomnia Methylprednisolone Sodium Succinate (Solu-Medrol) 125 mg IVPUSH Q8H [facility] Last Admin: 03/13/19 09:00 Dose: 125 mg Metoprolol Tartrate (Lopressor) 25 mg PO BID [facility] Last Admin: 03/17/19 09:03 Dose: 25 mg Metoprolol Tartrate (Lopressor) 25 mg PO ONETIME ONE Stop: 03/12/19 16:07 Last Admin: 03/12/19 16:33 Dose: 25 mg Pantoprazole Sodium (Protonix) 40 mg PO DAILY [facility] Last Admin: 03/17/19 09:02 Dose: 40 mg Memantine Hcl 28 Mg 1 each PO DAILY [facility] Last Admin: 03/17/19 09:17 Dose: Not Given Prednisone (Prednisone) 40 mg PO BID [facility] Last Admin: 03/14/19 09:59 Dose: Not Given Prednisone (Prednisone) 40 mg PO BID [facility] Last Admin: 03/15/19 09:57 Dose: 40 mg Prednisone (Prednisone) 40 mg PO DAILY [facility] Last Admin: 03/17/19 09:03 Dose: 40 mg Vancomycin HCl (Pharmacy To Dose - Vancomycin) 1 dose .XX ASDIRECTED [facility] Warfarin Sodium (Coumadin) 4 mg PO MoWeFr@1400 [facility] Last Admin: 03/12/19 14:22 Dose: 4 mg Warfarin Sodium (Coumadin) 5 mg PO SuTuThSa@1400 [facility] Last Admin: 03/14/19 15:15 Dose: Not Given Warfarin Sodium (Coumadin Ask) 1 each PO DAILY@1400 [facility] Last Admin: 03/17/19 14:45 Dose: Not Given Warfarin Sodium (Coumadin) 4 mg PO DAILY@1400 ONE Stop: 03/14/19 14:31 Last Admin: 03/14/19 14:39 Dose: 4 mg Warfarin Sodium (Coumadin) 5 mg PO DAILY@1400 ONE Stop: 03/16/19 14:16 Last Admin: 03/16/19 14:25 Dose: 5 mg Warfarin Sodium (Coumadin) 5 mg PO DAILY@1400 ONE Stop: 03/17/19 14:31 Last Admin: 03/17/19 14:46 Dose: 5 mg - Problem List & Annotations (1) Pleural effusion SNOMED Code(s): 36249675 Code(s): J90 - PLEURAL EFFUSION, NOT ELSEWHERE CLASSIFIED Status: Acute (2) HCAP (healthcare-associated pneumonia) SNOMED Code(s): 994124654, 883344516 Code(s): J18.9 - PNEUMONIA, UNSPECIFIED ORGANISM Status: Acute (3) Hypoxemia SNOMED Code(s): 372080381 Code(s): R09.02 - HYPOXEMIA Status: Acute (4) Acute exacerbation of CHF (congestive heart failure) SNOMED Code(s): 831738662, 92559318213013 Code(s): I50.9 - HEART FAILURE, UNSPECIFIED Status: Acute (5) Chronic atrial fibrillation SNOMED Code(s): 938775091 Code(s): I48.2 - CHRONIC ATRIAL FIBRILLATION * DO NOT USE * Status: Acute - Plan Plan:: I have seen and evaluated the patient and agree with the residents note unless specified in my note
[2019-03-16] MEDS: VANCOMYCIN/WATER FOR INJ (PEG) 1.5 GM in Premix Bag 1 BAG IV SCH (00:07)
[2019-03-16] MEDS: Piperacillin/Tazobactam 3.375 GM in Sodium Chloride 0.9% 50 ML IV SCH ×2 (02:33→09:48)
[2019-03-16] MEDS: Albuterol/Ipratropium 3.0-0.5 MG/3 ML Neb Soln NEB SCH (06:01)
[2019-03-16 08:42] LABS: BLOOD UREA NITROGEN,BUN 47 mg/dL (7.0-18.0); CARBON DIOXIDE,CO2 38.5 mmol/L (21.0-32.0); CHLORIDE,CL 106 mmol/L (98-107); GLUCOSE RANDOM 112 mg/dL (74-106); POTASSIUM,K 4.1 mmol/L (3.5-5.1); SODIUM,NA 145 mmol/L (136-148)
[2019-03-16] MEDS ORDERED: Albuterol/Ipratropium 3.0-0.5 MG/3 ML Neb Soln NEB PRN (09:23)
[2019-03-16] MEDS: Pantoprazole 40 MG Tab.CR PO SCH (09:47)
[2019-03-16] MEDS: Donepezil 10 MG Tab PO SCH (09:47)
[2019-03-16] MEDS: Furosemide 40 MG Tab PO SCH (09:47)
[2019-03-16] MEDS: predniSONE 20 MG Tab PO SCH (09:47)
[2019-03-16] MEDS: Metoprolol Tartrate 25 MG Tab PO SCH ×2 (09:47→20:40)
[2019-03-16] MEDS: MEMANTINE HCL 28 MG PO SCH (10:47)
--- NOTE | 2019-03-16 11:45 | PCM.DCSUM1 ---
<Bishnu Dodge - Last Filed: 03/17/19 13:41> Discharge Summary - Hospital Course Free Text/Narrative:: Discharge summary Admission diagnoses: Acute hypoxic respiratory failure Past medical history: Dementia/nonverbal at baseline, CHF, COPD requiring oxygen , atrial fibrillation on Coumadin Consultations: Speech therapy Procedures: None Hospital course: Patient is a 73-year-old male with a significant past medical history of a moderate left-sided pleural effusion, CHF, COPD and nonverbal at baseline secondary to dementia: Presented from [facility] secondary to worsening shortness of breath requiring more than his baseline of supplemental oxygen. Chest x-ray and CT scan showed moderate left-sided pleural effusion with minimal changes on previous imaging; pneumonia could not be ruled out; patient was started on Levaquin, methylprednisolone, DuoNeb treatments, and supplemental oxygen. Throughout his stay discussion was held with family regarding goals of care. Patient was continued on medications; with incremental improvement daily. Speech therapy was consulted: Recommended thickened feeds secondary to concerns for aspiration. Patient was also continued on his metoprolol secondary to episodes of tachycardia/A. fib RVR' most likely exacerbated; from his hypoxia. Discussed with daughter power of securities attorney, if willing to consult pulmonology for possible pleural effusion tap; daughter did not want aggressive therapeutic care; would like to keep patient comfortable; but has not had decided to make patient officially comfort care at this time. Patient throughout his stay continue to improve; close to his baseline; however discussed with patient that this will become a progressive issue moving forward despite medications including antibiotics and steroids. Daughter understood. Patient discharged in stable condition with additional Levaquin to complete course with prednisone. Return back to halfway. Discharge condition: Stable Disposition: long-term Follow-up: PCP. Possibly pulmonology for pleural effusion tap. - Discharge Data Discharge Date: 03/17/19 Discharge Disposition: DC/Tfer to SNF 03 Condition: Stable - Referral to Home Health Primary Care Physician: PCP Unobtainable - Patient Summary/Data Consults: Consultations 03/12/19 11:34 Consult to Speech Language Pathology [TRANSLATOR/INTERPRETER Evaluation and Treatment] [CONS] Routine - Patient Instructions Diet: Pureed (nectar thick liquids pills, whole in pureed) Driving: Do Not Drive Showering/Bathing: May Shower Notify Provider of: Fever, Increased Pain, Swelling and Redness, Drainage, Nausea and/or Vomiting Other/Special Instructions: PT/OT/ST to evaluate and treat - Discharge Plan *PRESCRIPTION DRUG MONITORING PROGRAM REVIEWED*: Not Applicable *COPY OF PRESCRIPTION DRUG MONITORING REPORT IN PATIENT SYED: Not Applicable Prescriptions/Med Rec: Levofloxacin [Levaquin] 750 mg PO DAILY #5 tablet Home Medications: Home Meds Warfarin [Coumadin] 5 mg PO SUTUTHSA 02/02/17 [History] Donepezil HCl [Aricept] 10 mg PO DAILY 7 Days #7 tablet 12/13/17 [Rx] Magnesium Hydroxide [Milk of Magnesia] 30 ml PO DAILY PRN 7 Days #1 cup [Rx] Metoprolol Tartrate 25 mg PO BID 7 Days #14 tablet 12/13/17 [Rx] Umeclidinium Brm/Vilanterol Tr [Anoro Ellipta 62.5-25 MCG] 1 inh IH DAILY 7 Days #7 inhaler 12/13/17 [Rx] bisacodyL [Dulcolax] 1 supp RECTAL ASDIRECTED PRN 7 Days #7 supp 12/13/17 [Rx] Memantine HCl [Namenda Xr] 28 mg PO DAILY 30 Days #30 cap.er 12/14/17 [Rx] Camphor/Menthol [Sarna Lotion] 1 applic TOP ASDIRECTED PRN 02/14/19 [History] Triamcinolone Acetonide [Nasacort] 2 spray NASBOTH DAILY 02/14/19 [History] Acetaminophen [Acetaminophen Extra Strength] 500 mg PO TID 03/11/19 [History] Albuterol [Ventolin HFA] 1 puff INH Q6H PRN 03/11/19 [History] Albuterol [Ventolin HFA] 2 puff INH Q6H PRN 03/11/19 [History] Camphor/Menthol [Sarna Lotion] 1 applic TOP DAILY PRN 03/11/19 [History] Memantine HCl [Namenda Xr] 28 mg PO DAILY 03/11/19 [History] Triamcinolone Acetonide [Nasacort] 2 sprays NS DAILY 03/11/19 [History] Warfarin [Coumadin] 4 mg PO MOWEFR 03/11/19 [History] Levofloxacin [Levaquin] 750 mg PO DAILY #5 tablet 03/16/19 [Rx] Oxygen Therapy Mode: Nasal Cannula Oxygen Flow Rate (L/min): 2.5 Maintain SpO2% greater than: 90 Patient Handouts: Levofloxacin tablets - Discharge Summary/Plan Comment DC Time >30 min.: No - Patient Data Vitals - Most Recent: Last Vital Signs Temp 97 F 03/16/19 08:00 Pulse 65 03/16/19 09:47 Resp 18 03/16/19 08:00 BP 143/75 H 03/16/19 09:47 Pulse Ox 97 03/16/19 08:00 Weight - Most Recent: 108.499 kg I&O - Last 24 hours: Intake & Output 03/15/19 03/16/19 03/16/19 22:59 06:59 14:59 Intake Total 550 360 Output Total 804 Balance 550 -444 Lab Results - Last 24 hrs: Laboratory Results - last 24 hr 03/15/19 03/16/19 03/16/19 Range/Units 22:23 07:56 07:56 WBC 11.39 H (4.0-11.0) K/uL RBC 4.15 L (4.50-5.90) M/uL Hgb 12.8 L (13.0-17.0) g/dL Hct 41.5 (38.0-50.0) % MCV 100.0 H (80.0-98.0) fL MCH 30.8 (27.0-32.0) pg MCHC 30.8 L (31.0-37.0) g/dL RDW Std Deviation 55.8 (28.0-62.0) fl RDW Coeff of Yadiel 15 (11.0-15.0) % Plt Count 177 (150-400) K/uL MPV 10.70 (7.40-12.00) fL Neut % (Auto) 79.0 (48.0-80.0) % Lymph % (Auto) 12.1 L (16.0-40.0) % Mitchell % (Auto) 8.6 (0.0-15.0) % Eos % (Auto) 0.2 (0.0-7.0) % Baso % (Auto) 0.1 (0.0-1.5) % Neut # (Auto) 9.0 H (1.4-5.7) K/uL Lymph # (Auto) 1.4 (0.6-2.4) K/uL Mitchell # (Auto) 1.0 H (0.0-0.8) K/uL Eos # (Auto) 0.0 (0.0-0.7) K/uL Baso # (Auto) 0.0 (0.0-0.1) K/uL Nucleated RBC % 0.0 /100WBC Nucleated RBCs # 0 K/uL INR 2.46 Sodium (136-148) mmol/L Potassium (3.5-5.1) mmol/L Chloride (98-107) mmol/L Carbon Dioxide (21.0-32.0) mmol/L BUN (7.0-18.0) mg/dL Creatinine (0.8-1.3) mg/dL Est Cr Clr Drug Dosing mL/min Estimated GFR (MDRD) ml/min Glucose (74-106) mg/dL Calcium (8.5-10.1) mg/dL Total Bilirubin (0.2-1.0) mg/dL AST (15-37) IU/L ALT (14-63) IU/L Alkaline Phosphatase (46-116) U/L Total Protein (6.4-8.2) g/dL Albumin (3.4-5.0) g/dL Globulin (2.6-4.0) g/dL Albumin/Globulin Ratio (0.9-1.6) Vancomycin Trough 21.0 H (5.0-10.0) ug/mL 03/16/19 Range/Units 07:56 WBC (4.0-11.0) K/uL RBC (4.50-5.90) M/uL Hgb (13.0-17.0) g/dL Hct (38.0-50.0) % MCV (80.0-98.0) fL MCH (27.0-32.0) pg MCHC (31.0-37.0) g/dL RDW Std Deviation (28.0-62.0) fl RDW Coeff of Yadiel (11.0-15.0) % Plt Count (150-400) K/uL MPV (7.40-12.00) fL Neut % (Auto) (48.0-80.0) % Lymph % (Auto) (16.0-40.0) % Mitchell % (Auto) (0.0-15.0) % Eos % (Auto) (0.0-7.0) % Baso % (Auto) (0.0-1.5) % Neut # (Auto) (1.4-5.7) K/uL Lymph # (Auto) (0.6-2.4) K/uL Mitchell # (Auto) (0.0-0.8) K/uL Eos # (Auto) (0.0-0.7) K/uL Baso # (Auto) (0.0-0.1) K/uL Nucleated RBC % /100WBC Nucleated RBCs # K/uL INR Sodium 145 (136-148) mmol/L Potassium 4.1 (3.5-5.1) mmol/L Chloride 106 (98-107) mmol/L Carbon Dioxide 38.5 H (21.0-32.0) mmol/L BUN 47 H (7.0-18.0) mg/dL Creatinine 1.1 (0.8-1.3) mg/dL Est Cr Clr Drug Dosing 67.46 mL/min Estimated GFR (MDRD) > 60.0 ml/min Glucose 112 H (74-106) mg/dL Calcium 8.7 (8.5-10.1) mg/dL Total Bilirubin 1.1 H (0.2-1.0) mg/dL AST 25 (15-37) IU/L ALT 82 H (14-63) IU/L Alkaline Phosphatase 54 (46-116) U/L Total Protein 6.3 L (6.4-8.2) g/dL Albumin 2.9 L (3.4-5.0) g/dL Globulin 3.4 (2.6-4.0) g/dL Albumin/Globulin Ratio 0.9 (0.9-1.6) Vancomycin Trough (5.0-10.0) ug/mL BIANKA Results - Last 24 hrs: Microbiology 03/11/19 16:05 Aerobic Blood Culture - Preliminary Blood - Venous - Lab Draw NO GROWTH AFTER 4 DAYS Anaerobic Blood Culture - Preliminary NO GROWTH AFTER 4 DAYS 03/11/19 15:56 Aerobic Blood Culture - Preliminary Blood - Venous NO GROWTH AFTER 4 DAYS Anaerobic Blood Culture - Preliminary NO GROWTH AFTER 4 DAYS Med Orders - Current: Current Medications Albuterol/Ipratropium (Duoneb 3.0-0.5 Mg/3 Ml) 3 ml NEB Q6HRRT PRN PRN Reason: Shortness of Breath Bisacodyl (Dulcolax) 10 mg RECTAL ASDIRECTED PRN PRN Reason: Constipation Last Admin: 03/15/19 12:12 Dose: 10 mg Donepezil HCl (Aricept) 10 mg PO DAILY [facility] Last Admin: 03/16/19 09:47 Dose: 10 mg Furosemide (Lasix) 40 mg PO DAILY [facility] Last Admin: 03/16/19 09:47 Dose: 40 mg Furosemide (Lasix) 40 mg IVPUSH NOW [facility] Last Admin: 03/13/19 18:56 Dose: 40 mg Piperacillin Sod/Tazobactam (Sod 3.375 gm/ Sodium Chloride) 50 mls @ 100 mls/ hr IV Q6H [facility] Last Admin: 03/16/19 09:48 Dose: 100 mls/hr Vancomycin HCl 1.25 gm/ Sodium (Chloride) 250 mls @ 166 mls/hr IV Q12H [facility] Magnesium Hydroxide (Milk Of Magnesia) 30 ml PO DAILY PRN PRN Reason: Constipation Last Admin: 03/14/19 09:08 Dose: 30 ml Melatonin (Melatonin) 3 mg PO BEDTIME PRN PRN Reason: Insomnia Metoprolol Tartrate (Lopressor) 25 mg PO BID [facility] Last Admin: 03/16/19 09:47 Dose: 25 mg Pantoprazole Sodium (Protonix) 40 mg PO DAILY [facility] Last Admin: 03/16/19 09:47 Dose: 40 mg Memantine Hcl 28 Mg 1 each PO DAILY [facility] Last Admin: 03/16/19 10:47 Dose: Not Given Prednisone (Prednisone) 40 mg PO DAILY [facility] Last Admin: 03/16/19 09:47 Dose: 40 mg Vancomycin HCl (Pharmacy To Dose - Vancomycin) 1 dose .XX ASDIRECTED [facility] Warfarin Sodium (Coumadin Ask) 1 each PO DAILY@1400 [facility] Last Admin: 03/15/19 14:17 Dose: Not Given Discontinued Medications Albuterol/Ipratropium (Duoneb 3.0-0.5 Mg/3 Ml) 3 ml NEB ONETIME ONE Stop: 03/11/19 17:05 Last Admin: 03/11/19 17:21 Dose: 3 ml Albuterol/Ipratropium (Duoneb 3.0-0.5 Mg/3 Ml) 3 ml NEB Q4HRRT [facility] Last Admin: 03/12/19 09:20 Dose: Not Given Albuterol/Ipratropium (Duoneb 3.0-0.5 Mg/3 Ml) 3 ml NEB Q6HRRT [facility] Last Admin: 03/13/19 17:47 Dose: 3 ml Albuterol/Ipratropium (Duoneb 3.0-0.5 Mg/3 Ml) 3 ml NEB Q6HRRT [facility] Last Admin: 03/16/19 06:01 Dose: 3 ml Bisacodyl (Dulcolax) 10 mg RECTAL ASDIRECTED PRN PRN Reason: Constipation Donepezil HCl (Aricept) 10 mg PO DAILY [facility] Last Admin: 03/13/19 08:58 Dose: 10 mg Furosemide (Lasix) 40 mg IVPUSH NOW ONE Stop: 03/11/19 19:20 Last Admin: 03/11/19 19:51 Dose: 40 mg Levofloxacin/Dextrose 750 mg/ (Premix) 150 mls @ 100 mls/hr IV ONETIME ONE Stop: 03/11/19 19:02 Last Admin: 03/11/19 17:44 Dose: 100 mls/hr Levofloxacin/Dextrose 750 mg/ (Premix) 150 mls @ 100 mls/hr IV Q24H [facility] Last Admin: 03/13/19 16:29 Dose: 100 mls/hr Piperacillin Sod/Tazobactam (Sod 3.375 gm/ Sodium Chloride) 50 mls @ 100 mls/ hr IV Q8H [facility] Last Admin: 03/15/19 02:35 Dose: 100 mls/hr Vancomycin HCl 1.5 gm/ Premix 300 mls @ 200 mls/hr IV Q12H [facility] Last Admin: 03/16/19 00:07 Dose: Not Given Vancomycin HCl 1.25 gm/ Sodium (Chloride) 250 mls @ 166 mls/hr IV Q12H [facility] Last Admin: 03/16/19 01:07 Dose: 166 mls/hr Levofloxacin (Levaquin) 750 mg PO ONETIME ONE Stop: 03/11/19 17:07 Last Admin: 03/11/19 17:48 Dose: Not Given Methylprednisolone Sodium Succinate (Solu-Medrol) 125 mg IVPUSH Q8H [facility] Last Admin: 03/13/19 09:00 Dose: 125 mg Metoprolol Tartrate (Lopressor) 25 mg PO ONETIME ONE Stop: 03/12/19 16:07 Last Admin: 03/12/19 16:33 Dose: 25 mg Prednisone (Prednisone) 40 mg PO BID [facility] Last Admin: 03/14/19 09:59 Dose: Not Given Prednisone (Prednisone) 40 mg PO BID [facility] Last Admin: 03/15/19 09:57 Dose: 40 mg Warfarin Sodium (Coumadin) 4 mg PO MoWeFr@1400 [facility] Last Admin: 03/12/19 14:22 Dose: 4 mg Warfarin Sodium (Coumadin) 5 mg PO SuTuThSa@1400 [facility] Last Admin: 03/14/19 15:15 Dose: Not Given Warfarin Sodium (Coumadin) 4 mg PO DAILY@1400 ONE Stop: 03/14/19 14:31 Last Admin: 03/14/19 14:39 Dose: 4 mg <Ondina Mack - Last Filed: 03/22/19 20:19> Discharge Summary - Hospital Course Free Text/Narrative:: I have seen and evaluated the patient and agree with the residents note unless specified in my note - Referral to Home Health Primary Care Physician: PCP Unobtainable - Discharge Diagnosis/Problem(s) (1) Pleural effusion SNOMED Code(s): 52110645 ICD Code: J90 - PLEURAL EFFUSION, NOT ELSEWHERE CLASSIFIED Status: Acute (2) HCAP (healthcare-associated pneumonia) SNOMED Code(s): 616046430, 820969675 ICD Code: J18.9 - PNEUMONIA, UNSPECIFIED ORGANISM Status: Acute (3) Hypoxemia SNOMED Code(s): 523406286 ICD Code: R09.02 - HYPOXEMIA Status: Acute (4) Acute exacerbation of CHF (congestive heart failure) SNOMED Code(s): 973556759, 95896393362242 ICD Code: I50.9 - HEART FAILURE, UNSPECIFIED Status: Acute (5) Chronic atrial fibrillation SNOMED Code(s): 360767551 ICD Code: I48.2 - CHRONIC ATRIAL FIBRILLATION * DO NOT USE * Status: Acute - Patient Summary/Data Consults: Consultations 03/12/19 11:34 Consult to Speech Language Pathology [TRANSLATOR/INTERPRETER Evaluation and Treatment] [CONS] Routine - Patient Data Vitals - Most Recent: Last Vital Signs Temp 35.9 C 03/17/19 11:41 Pulse 64 03/17/19 11:41 Resp 22 H 03/17/19 11:41 BP 166/78 H 03/17/19 11:41 Pulse Ox 97 03/17/19 11:41 Med Orders - Current: Current Medications Discontinued Medications Albuterol/Ipratropium (Duoneb 3.0-0.5 Mg/3 Ml) 3 ml NEB ONETIME ONE Stop: 03/11/19 17:05 Last Admin: 03/11/19 17:21 Dose: 3 ml Albuterol/Ipratropium (Duoneb 3.0-0.5 Mg/3 Ml) 3 ml NEB Q4HRRT [facility] Last Admin: 03/12/19 09:20 Dose: Not Given Albuterol/Ipratropium (Duoneb 3.0-0.5 Mg/3 Ml) 3 ml NEB Q6HRRT [facility] Last Admin: 03/13/19 17:47 Dose: 3 ml Albuterol/Ipratropium (Duoneb 3.0-0.5 Mg/3 Ml) 3 ml NEB Q6HRRT [facility] Last Admin: 03/16/19 06:01 Dose: 3 ml Albuterol/Ipratropium (Duoneb 3.0-0.5 Mg/3 Ml) 3 ml NEB Q6HRRT PRN PRN Reason: Shortness of Breath Last Admin: 03/16/19 23:50 Dose: 3 ml Bisacodyl (Dulcolax) 10 mg RECTAL ASDIRECTED PRN PRN Reason: Constipation Bisacodyl (Dulcolax) 10 mg RECTAL ASDIRECTED PRN PRN Reason: Constipation Last Admin: 03/15/19 12:12 Dose: 10 mg Donepezil HCl (Aricept) 10 mg PO DAILY [facility] Last Admin: 03/13/19 08:58 Dose: 10 mg Donepezil HCl (Aricept) 10 mg PO DAILY [facility] Last Admin: 03/17/19 09:02 Dose: 10 mg Furosemide (Lasix) 40 mg IVPUSH NOW ONE Stop: 03/11/19 19:20 Last Admin: 03/11/19 19:51 Dose: 40 mg Furosemide (Lasix) 40 mg PO DAILY [facility] Last Admin: 01/08/20 09:03 Dose: 40 mg Furosemide (Lasix) 40 mg IVPUSH NOW [facility] Last Admin: 03/13/19 18:56 Dose: 40 mg Levofloxacin/Dextrose 750 mg/ (Premix) 150 mls @ 100 mls/hr IV ONETIME ONE Stop: 03/11/19 19:02 Last Admin: 03/11/19 17:44 Dose: 100 mls/hr Levofloxacin/Dextrose 750 mg/ (Premix) 150 mls @ 100 mls/hr IV Q24H [facility] Last Admin: 03/13/19 16:29 Dose: 100 mls/hr Piperacillin Sod/Tazobactam (Sod 3.375 gm/ Sodium Chloride) 50 mls @ 100 mls/ hr IV Q8H [facility] Last Admin: 03/15/19 02:35 Dose: 100 mls/hr Vancomycin HCl 1.5 gm/ Premix 300 mls @ 200 mls/hr IV Q12H [facility] Last Admin: 03/16/19 00:07 Dose: Not Given Piperacillin Sod/Tazobactam (Sod 3.375 gm/ Sodium Chloride) 50 mls @ 100 mls/ hr IV Q6H [facility] Last Admin: 03/16/19 09:48 Dose: 100 mls/hr Vancomycin HCl 1.25 gm/ Sodium (Chloride) 250 mls @ 166 mls/hr IV Q12H [facility] Last Admin: 03/16/19 01:07 Dose: 166 mls/hr Vancomycin HCl 1.25 gm/ Sodium (Chloride) 250 mls @ 166 mls/hr IV Q12H [facility] Last Admin: 03/16/19 14:11 Dose: Not Given Levofloxacin (Levaquin) 750 mg PO ONETIME ONE Stop: 03/11/19 17:07 Last Admin: 03/11/19 17:48 Dose: Not Given Levofloxacin (Levaquin) 750 mg PO Q24H [facility] Last Admin: 03/17/19 14:05 Dose: 750 mg Magnesium Hydroxide (Milk Of Magnesia) 30 ml PO DAILY PRN PRN Reason: Constipation Last Admin: 03/14/19 09:08 Dose: 30 ml Melatonin (Melatonin) 3 mg PO BEDTIME PRN PRN Reason: Insomnia Methylprednisolone Sodium Succinate (Solu-Medrol) 125 mg IVPUSH Q8H [facility] Last Admin: 03/13/19 09:00 Dose: 125 mg Metoprolol Tartrate (Lopressor) 25 mg PO BID [facility] Last Admin: 03/17/19 09:03 Dose: 25 mg Metoprolol Tartrate (Lopressor) 25 mg PO ONETIME ONE Stop: 03/12/19 16:07 Last Admin: 03/12/19 16:33 Dose: 25 mg Pantoprazole Sodium (Protonix) 40 mg PO DAILY [facility] Last Admin: 03/17/19 09:02 Dose: 40 mg Memantine Hcl 28 Mg 1 each PO DAILY [facility] Last Admin: 03/17/19 09:17 Dose: Not Given Prednisone (Prednisone) 40 mg PO BID [facility] Last Admin: 03/14/19 09:59 Dose: Not Given Prednisone (Prednisone) 40 mg PO BID [facility] Last Admin: 03/15/19 09:57 Dose: 40 mg Prednisone (Prednisone) 40 mg PO DAILY [facility] Last Admin: 03/17/19 09:03 Dose: 40 mg Vancomycin HCl (Pharmacy To Dose - Vancomycin) 1 dose .XX ASDIRECTED [facility] Warfarin Sodium (Coumadin) 4 mg PO MoWeFr@1400 [facility] Last Admin: 03/12/19 14:22 Dose: 4 mg Warfarin Sodium (Coumadin) 5 mg PO SuTuThSa@1400 [facility] Last Admin: 03/14/19 15:15 Dose: Not Given Warfarin Sodium (Coumadin Ask) 1 each PO DAILY@1400 [facility] Last Admin: 03/17/19 14:45 Dose: Not Given Warfarin Sodium (Coumadin) 4 mg PO DAILY@1400 ONE Stop: 03/14/19 14:31 Last Admin: 03/14/19 14:39 Dose: 4 mg Warfarin Sodium (Coumadin) 5 mg PO DAILY@1400 ONE Stop: 03/16/19 14:16 Last Admin: 03/16/19 14:25 Dose: 5 mg Warfarin Sodium (Coumadin) 5 mg PO DAILY@1400 ONE Stop: 03/17/19 14:31 Last Admin: 03/17/19 14:46 Dose: 5 mg
--- NOTE | 2019-03-16 13:53 | ECHO ---
EXAM DATE: 03/14/19 PATIENT'S AGE: 73 The echocardiogram report can be seen in this patient's EMR (Electronic Medical Record) in the REPORTS section. The report has also been scanned into PACs. [place]
[2019-03-16] MEDS: Levofloxacin 250 MG Tab PO SCH (14:00)
[2019-03-16] MEDS ORDERED: Warfarin 5 MG Tab PO ONE (14:15)
--- NOTE | 2019-03-16 17:27 | PCM.PN ---
<Bishnu Dodge - Last Filed: 03/16/19 17:23> - General Info Date of Service: 03/16/19 Subjective Update: Bedside: pleasant; at baseline; no acute concerns. - Review of Systems General: Denies: Fever, Chills Pulmonary: Reports: Cough. Denies: Shortness of Breath, Wheezing Cardiovascular: Denies: Edema Neurological: Reports: Pre-Existing Deficit (pt. has dementia and is non-verbal at baseline. ) - Patient Data Vitals - Most Recent: Last Vital Signs Temp 96.5 F 03/16/19 16:00 Pulse 97 03/16/19 16:00 Resp 16 03/16/19 16:00 BP 148/70 H 03/16/19 16:00 Pulse Ox 92 L 03/16/19 16:00 Weight - Most Recent: 108.499 kg I&O - Last 24 Hours: Intake & Output 03/16/19 03/16/19 03/16/19 06:59 14:59 22:59 Intake Total 360 620 Output Total 804 Balance -444 620 Lab Results Last 24 Hours: Laboratory Results - last 24 hr 03/15/19 03/16/19 03/16/19 Range/Units 22:23 07:56 07:56 WBC 11.39 H (4.0-11.0) K/uL RBC 4.15 L (4.50-5.90) M/uL Hgb 12.8 L (13.0-17.0) g/dL Hct 41.5 (38.0-50.0) % MCV 100.0 H (80.0-98.0) fL MCH 30.8 (27.0-32.0) pg MCHC 30.8 L (31.0-37.0) g/dL RDW Std Deviation 55.8 (28.0-62.0) fl RDW Coeff of Yadiel 15 (11.0-15.0) % Plt Count 177 (150-400) K/uL MPV 10.70 (7.40-12.00) fL Neut % (Auto) 79.0 (48.0-80.0) % Lymph % (Auto) 12.1 L (16.0-40.0) % Baldwin % (Auto) 8.6 (0.0-15.0) % Eos % (Auto) 0.2 (0.0-7.0) % Baso % (Auto) 0.1 (0.0-1.5) % Neut # (Auto) 9.0 H (1.4-5.7) K/uL Lymph # (Auto) 1.4 (0.6-2.4) K/uL Baldwin # (Auto) 1.0 H (0.0-0.8) K/uL Eos # (Auto) 0.0 (0.0-0.7) K/uL Baso # (Auto) 0.0 (0.0-0.1) K/uL Nucleated RBC % 0.0 /100WBC Nucleated RBCs # 0 K/uL INR 2.46 Sodium (136-148) mmol/L Potassium (3.5-5.1) mmol/L Chloride (98-107) mmol/L Carbon Dioxide (21.0-32.0) mmol/L BUN (7.0-18.0) mg/dL Creatinine (0.8-1.3) mg/dL Est Cr Clr Drug Dosing mL/min Estimated GFR (MDRD) ml/min Glucose (74-106) mg/dL Calcium (8.5-10.1) mg/dL Total Bilirubin (0.2-1.0) mg/dL AST (15-37) IU/L ALT (14-63) IU/L Alkaline Phosphatase (46-116) U/L Total Protein (6.4-8.2) g/dL Albumin (3.4-5.0) g/dL Globulin (2.6-4.0) g/dL Albumin/Globulin Ratio (0.9-1.6) Vancomycin Trough 21.0 H (5.0-10.0) ug/mL 03/16/19 Range/Units 07:56 WBC (4.0-11.0) K/uL RBC (4.50-5.90) M/uL Hgb (13.0-17.0) g/dL Hct (38.0-50.0) % MCV (80.0-98.0) fL MCH (27.0-32.0) pg MCHC (31.0-37.0) g/dL RDW Std Deviation (28.0-62.0) fl RDW Coeff of Yadiel (11.0-15.0) % Plt Count (150-400) K/uL MPV (7.40-12.00) fL Neut % (Auto) (48.0-80.0) % Lymph % (Auto) (16.0-40.0) % Baldwin % (Auto) (0.0-15.0) % Eos % (Auto) (0.0-7.0) % Baso % (Auto) (0.0-1.5) % Neut # (Auto) (1.4-5.7) K/uL Lymph # (Auto) (0.6-2.4) K/uL Baldwin # (Auto) (0.0-0.8) K/uL Eos # (Auto) (0.0-0.7) K/uL Baso # (Auto) (0.0-0.1) K/uL Nucleated RBC % /100WBC Nucleated RBCs # K/uL INR Sodium 145 (136-148) mmol/L Potassium 4.1 (3.5-5.1) mmol/L Chloride 106 (98-107) mmol/L Carbon Dioxide 38.5 H (21.0-32.0) mmol/L BUN 47 H (7.0-18.0) mg/dL Creatinine 1.1 (0.8-1.3) mg/dL Est Cr Clr Drug Dosing 67.46 mL/min Estimated GFR (MDRD) > 60.0 ml/min Glucose 112 H (74-106) mg/dL Calcium 8.7 (8.5-10.1) mg/dL Total Bilirubin 1.1 H (0.2-1.0) mg/dL AST 25 (15-37) IU/L ALT 82 H (14-63) IU/L Alkaline Phosphatase 54 (46-116) U/L Total Protein 6.3 L (6.4-8.2) g/dL Albumin 2.9 L (3.4-5.0) g/dL Globulin 3.4 (2.6-4.0) g/dL Albumin/Globulin Ratio 0.9 (0.9-1.6) Vancomycin Trough (5.0-10.0) ug/mL Patric Results Last 24 Hours: Microbiology 03/11/19 15:56 Aerobic Blood Culture - Final Blood - Venous NO GROWTH AFTER 5 DAYS Anaerobic Blood Culture - Final NO GROWTH AFTER 5 DAYS 03/11/19 16:05 Aerobic Blood Culture - Preliminary Blood - Venous - Lab Draw NO GROWTH AFTER 4 DAYS Anaerobic Blood Culture - Preliminary NO GROWTH AFTER 4 DAYS Med Orders - Current: Current Medications Albuterol/Ipratropium (Duoneb 3.0-0.5 Mg/3 Ml) 3 ml NEB Q6HRRT PRN PRN Reason: Shortness of Breath Bisacodyl (Dulcolax) 10 mg RECTAL ASDIRECTED PRN PRN Reason: Constipation Last Admin: 03/15/19 12:12 Dose: 10 mg Donepezil HCl (Aricept) 10 mg PO DAILY [facility] Last Admin: 03/16/19 09:47 Dose: 10 mg Furosemide (Lasix) 40 mg PO DAILY [facility] Last Admin: 03/16/19 09:47 Dose: 40 mg Furosemide (Lasix) 40 mg IVPUSH NOW [facility] Last Admin: 03/13/19 18:56 Dose: 40 mg Levofloxacin (Levaquin) 750 mg PO Q24H [facility] Last Admin: 03/16/19 14:00 Dose: 750 mg Magnesium Hydroxide (Milk Of Magnesia) 30 ml PO DAILY PRN PRN Reason: Constipation Last Admin: 03/14/19 09:08 Dose: 30 ml Melatonin (Melatonin) 3 mg PO BEDTIME PRN PRN Reason: Insomnia Metoprolol Tartrate (Lopressor) 25 mg PO BID [facility] Last Admin: 03/16/19 09:47 Dose: 25 mg Pantoprazole Sodium (Protonix) 40 mg PO DAILY [facility] Last Admin: 03/16/19 09:47 Dose: 40 mg Memantine Hcl 28 Mg 1 each PO DAILY [facility] Last Admin: 03/16/19 10:47 Dose: Not Given Prednisone (Prednisone) 40 mg PO DAILY [facility] Last Admin: 03/16/19 09:47 Dose: 40 mg Vancomycin HCl (Pharmacy To Dose - Vancomycin) 1 dose .XX ASDIRECTED [facility] Warfarin Sodium (Coumadin Ask) 1 each PO DAILY@1400 [facility] Last Admin: 03/16/19 14:28 Dose: Not Given Discontinued Medications Albuterol/Ipratropium (Duoneb 3.0-0.5 Mg/3 Ml) 3 ml NEB ONETIME ONE Stop: 03/11/19 17:05 Last Admin: 03/11/19 17:21 Dose: 3 ml Albuterol/Ipratropium (Duoneb 3.0-0.5 Mg/3 Ml) 3 ml NEB Q4HRRT [facility] Last Admin: 03/12/19 09:20 Dose: Not Given Albuterol/Ipratropium (Duoneb 3.0-0.5 Mg/3 Ml) 3 ml NEB Q6HRRT [facility] Last Admin: 03/13/19 17:47 Dose: 3 ml Albuterol/Ipratropium (Duoneb 3.0-0.5 Mg/3 Ml) 3 ml NEB Q6HRRT [facility] Last Admin: 03/16/19 06:01 Dose: 3 ml Bisacodyl (Dulcolax) 10 mg RECTAL ASDIRECTED PRN PRN Reason: Constipation Donepezil HCl (Aricept) 10 mg PO DAILY [facility] Last Admin: 03/13/19 08:58 Dose: 10 mg Furosemide (Lasix) 40 mg IVPUSH NOW ONE Stop: 03/11/19 19:20 Last Admin: 03/11/19 19:51 Dose: 40 mg Levofloxacin/Dextrose 750 mg/ (Premix) 150 mls @ 100 mls/hr IV ONETIME ONE Stop: 03/11/19 19:02 Last Admin: 03/11/19 17:44 Dose: 100 mls/hr Levofloxacin/Dextrose 750 mg/ (Premix) 150 mls @ 100 mls/hr IV Q24H [facility] Last Admin: 03/13/19 16:29 Dose: 100 mls/hr Piperacillin Sod/Tazobactam (Sod 3.375 gm/ Sodium Chloride) 50 mls @ 100 mls/ hr IV Q8H [facility] Last Admin: 03/15/19 02:35 Dose: 100 mls/hr Vancomycin HCl 1.5 gm/ Premix 300 mls @ 200 mls/hr IV Q12H [facility] Last Admin: 03/16/19 00:07 Dose: Not Given Piperacillin Sod/Tazobactam (Sod 3.375 gm/ Sodium Chloride) 50 mls @ 100 mls/ hr IV Q6H [facility] Last Admin: 03/16/19 09:48 Dose: 100 mls/hr Vancomycin HCl 1.25 gm/ Sodium (Chloride) 250 mls @ 166 mls/hr IV Q12H [facility] Last Admin: 03/16/19 01:07 Dose: 166 mls/hr Vancomycin HCl 1.25 gm/ Sodium (Chloride) 250 mls @ 166 mls/hr IV Q12H [facility] Last Admin: 03/16/19 14:11 Dose: Not Given Levofloxacin (Levaquin) 750 mg PO ONETIME ONE Stop: 03/11/19 17:07 Last Admin: 03/11/19 17:48 Dose: Not Given Methylprednisolone Sodium Succinate (Solu-Medrol) 125 mg IVPUSH Q8H [facility] Last Admin: 03/13/19 09:00 Dose: 125 mg Metoprolol Tartrate (Lopressor) 25 mg PO ONETIME ONE Stop: 03/12/19 16:07 Last Admin: 03/12/19 16:33 Dose: 25 mg Prednisone (Prednisone) 40 mg PO BID [facility] Last Admin: 03/14/19 09:59 Dose: Not Given Prednisone (Prednisone) 40 mg PO BID [facility] Last Admin: 03/15/19 09:57 Dose: 40 mg Warfarin Sodium (Coumadin) 4 mg PO MoWeFr@1400 [facility] Last Admin: 03/12/19 14:22 Dose: 4 mg Warfarin Sodium (Coumadin) 5 mg PO SuTuThSa@1400 [facility] Last Admin: 03/14/19 15:15 Dose: Not Given Warfarin Sodium (Coumadin) 4 mg PO DAILY@1400 ONE Stop: 03/14/19 14:31 Last Admin: 03/14/19 14:39 Dose: 4 mg Warfarin Sodium (Coumadin) 5 mg PO DAILY@1400 ONE Stop: 03/16/19 14:16 Last Admin: 03/16/19 14:25 Dose: 5 mg - Exam General: Alert, No Acute Distress HEENT: EOMI, Mucous Membr. Moist/Fries Neck: Supple Lungs: Other (diminshment of BS; baseline consistent w/ x-ra findings;stable ; on baseline O2; no acute respiratory distress ) Cardiovascular: Regular Rate, Irregular Rhythm GI/Abdominal Exam: Soft, Non-Tender Extremities: Other (mild l/e edema ) Skin: Warm, Dry Psy/Mental Status: Alert, Normal Mood Sepsis Event Note - Evaluation Sepsis Screening Result: No Definite Risk - Focused Exam Vital Signs: Vital Signs Temp Pulse Pulse Resp BP BP Pulse Ox 03/16/19 16:00 96.5 F 97 16 148/70 H 92 L 03/16/19 12:00 97.4 F 77 24 H 117/67 95 03/16/19 09:47 65 143/75 H 03/16/19 08:00 97 F 67 18 145/64 H 97 Date Exam was Performed: 03/16/19 Time Exam was Performed: 17:23 - Problem List Review Problem List Initiated/Reviewed/Updated: Yes - My Orders Last 24 Hours: My Active Orders 03/16/19 09:23 Albuterol/Ipratropium [DuoNeb 3.0-0.5 MG/3 ML] 3 ml NEB Q6HRRT PRN - Plan Plan:: A/P: CT chest shows possible atelectasis vs PNA Pleural effusion is moderate and stable, no empyema WBC IMPROVED today deescalated steroids , continue abx: transitioned to PO Levaquin; evaluating for tolerance and response; most likely dc tomorrow. Discussed case with daughter; Daughter is keen to avoid any aggressive therapy moving forward; discussed respiratory failure might worsen and pt. might need require a pleural fluid tap; daughter expressed understanding and is moving towards a comfort care position. Cont PO lasix Continue duo-neb treatments q6hr scheduled. Continue home medications for dementia, BP and rhythm control; continue Warfarin at dosing scheduled by pharmacy. Hold COPD medications. <Ondina Mack - Last Filed: 03/22/19 20:20> - Patient Data Vitals - Most Recent: Last Vital Signs Temp 35.9 C 03/17/19 11:41 Pulse 64 03/17/19 11:41 Resp 22 H 03/17/19 11:41 BP 166/78 H 03/17/19 11:41 Pulse Ox 97 03/17/19 11:41 Med Orders - Current: Current Medications Discontinued Medications Albuterol/Ipratropium (Duoneb 3.0-0.5 Mg/3 Ml) 3 ml NEB ONETIME ONE Stop: 03/11/19 17:05 Last Admin: 03/11/19 17:21 Dose: 3 ml Albuterol/Ipratropium (Duoneb 3.0-0.5 Mg/3 Ml) 3 ml NEB Q4HRRT [facility] Last Admin: 03/12/19 09:20 Dose: Not Given Albuterol/Ipratropium (Duoneb 3.0-0.5 Mg/3 Ml) 3 ml NEB Q6HRRT [facility] Last Admin: 03/13/19 17:47 Dose: 3 ml Albuterol/Ipratropium (Duoneb 3.0-0.5 Mg/3 Ml) 3 ml NEB Q6HRRT [facility] Last Admin: 03/16/19 06:01 Dose: 3 ml Albuterol/Ipratropium (Duoneb 3.0-0.5 Mg/3 Ml) 3 ml NEB Q6HRRT PRN PRN Reason: Shortness of Breath Last Admin: 03/16/19 23:50 Dose: 3 ml Bisacodyl (Dulcolax) 10 mg RECTAL ASDIRECTED PRN PRN Reason: Constipation Bisacodyl (Dulcolax) 10 mg RECTAL ASDIRECTED PRN PRN Reason: Constipation Last Admin: 03/15/19 12:12 Dose: 10 mg Donepezil HCl (Aricept) 10 mg PO DAILY [facility] Last Admin: 03/13/19 08:58 Dose: 10 mg Donepezil HCl (Aricept) 10 mg PO DAILY [facility] Last Admin: 03/17/19 09:02 Dose: 10 mg Furosemide (Lasix) 40 mg IVPUSH NOW ONE Stop: 03/11/19 19:20 Last Admin: 03/11/19 19:51 Dose: 40 mg Furosemide (Lasix) 40 mg PO DAILY [facility] Last Admin: 03/17/19 09:03 Dose: 40 mg Furosemide (Lasix) 40 mg IVPUSH NOW [facility] Last Admin: 03/13/19 18:56 Dose: 40 mg Levofloxacin/Dextrose 750 mg/ (Premix) 150 mls @ 100 mls/hr IV ONETIME ONE Stop: 03/11/19 19:02 Last Admin: 03/11/19 17:44 Dose: 100 mls/hr Levofloxacin/Dextrose 750 mg/ (Premix) 150 mls @ 100 mls/hr IV Q24H [facility] Last Admin: 03/13/19 16:29 Dose: 100 mls/hr Piperacillin Sod/Tazobactam (Sod 3.375 gm/ Sodium Chloride) 50 mls @ 100 mls/ hr IV Q8H [facility] Last Admin: 03/15/19 02:35 Dose: 100 mls/hr Vancomycin HCl 1.5 gm/ Premix 300 mls @ 200 mls/hr IV Q12H [facility] Last Admin: 03/16/19 00:07 Dose: Not Given Piperacillin Sod/Tazobactam (Sod 3.375 gm/ Sodium Chloride) 50 mls @ 100 mls/ hr IV Q6H [facility] Last Admin: 03/16/19 09:48 Dose: 100 mls/hr Vancomycin HCl 1.25 gm/ Sodium (Chloride) 250 mls @ 166 mls/hr IV Q12H [facility] Last Admin: 03/16/19 01:07 Dose: 166 mls/hr Vancomycin HCl 1.25 gm/ Sodium (Chloride) 250 mls @ 166 mls/hr IV Q12H [facility] Last Admin: 03/16/19 14:11 Dose: Not Given Levofloxacin (Levaquin) 750 mg PO ONETIME ONE Stop: 03/11/19 17:07 Last Admin: 03/11/19 17:48 Dose: Not Given Levofloxacin (Levaquin) 750 mg PO Q24H [facility] Last Admin: 03/17/19 14:05 Dose: 750 mg Magnesium Hydroxide (Milk Of Magnesia) 30 ml PO DAILY PRN PRN Reason: Constipation Last Admin: 03/14/19 09:08 Dose: 30 ml Melatonin (Melatonin) 3 mg PO BEDTIME PRN PRN Reason: Insomnia Methylprednisolone Sodium Succinate (Solu-Medrol) 125 mg IVPUSH Q8H [facility] Last Admin: 03/13/19 09:00 Dose: 125 mg Metoprolol Tartrate (Lopressor) 25 mg PO BID [facility] Last Admin: 03/17/19 09:03 Dose: 25 mg Metoprolol Tartrate (Lopressor) 25 mg PO ONETIME ONE Stop: 03/12/19 16:07 Last Admin: 03/12/19 16:33 Dose: 25 mg Pantoprazole Sodium (Protonix) 40 mg PO DAILY [facility] Last Admin: 03/17/19 09:02 Dose: 40 mg Memantine Hcl 28 Mg 1 each PO DAILY [facility] Last Admin: 03/17/19 09:17 Dose: Not Given Prednisone (Prednisone) 40 mg PO BID [facility] Last Admin: 03/14/19 09:59 Dose: Not Given Prednisone (Prednisone) 40 mg PO BID [facility] Last Admin: 03/15/19 09:57 Dose: 40 mg Prednisone (Prednisone) 40 mg PO DAILY [facility] Last Admin: 03/17/19 09:03 Dose: 40 mg Vancomycin HCl (Pharmacy To Dose - Vancomycin) 1 dose .XX ASDIRECTED [facility] Warfarin Sodium (Coumadin) 4 mg PO MoWeFr@1400 [facility] Last Admin: 03/12/19 14:22 Dose: 4 mg Warfarin Sodium (Coumadin) 5 mg PO SuTuThSa@1400 [facility] Last Admin: 03/14/19 15:15 Dose: Not Given Warfarin Sodium (Coumadin Ask) 1 each PO DAILY@1400 [facility] Last Admin: 03/17/19 14:45 Dose: Not Given Warfarin Sodium (Coumadin) 4 mg PO DAILY@1400 ONE Stop: 03/14/19 14:31 Last Admin: 03/14/19 14:39 Dose: 4 mg Warfarin Sodium (Coumadin) 5 mg PO DAILY@1400 ONE Stop: 03/16/19 14:16 Last Admin: 03/16/19 14:25 Dose: 5 mg Warfarin Sodium (Coumadin) 5 mg PO DAILY@1400 ONE Stop: 03/17/19 14:31 Last Admin: 03/17/19 14:46 Dose: 5 mg - Problem List & Annotations (1) Pleural effusion SNOMED Code(s): 61288621 Code(s): J90 - PLEURAL EFFUSION, NOT ELSEWHERE CLASSIFIED Status: Acute (2) HCAP (healthcare-associated pneumonia) SNOMED Code(s): 136811913, 204983037 Code(s): J18.9 - PNEUMONIA, UNSPECIFIED ORGANISM Status: Acute (3) Hypoxemia SNOMED Code(s): 871426053 Code(s): R09.02 - HYPOXEMIA Status: Acute (4) Acute exacerbation of CHF (congestive heart failure) SNOMED Code(s): 237050029, 54307212695804 Code(s): I50.9 - HEART FAILURE, UNSPECIFIED Status: Acute (5) Chronic atrial fibrillation SNOMED Code(s): 262190311 Code(s): I48.2 - CHRONIC ATRIAL FIBRILLATION * DO NOT USE * Status: Acute - Plan Plan:: I have seen and evaluated the patient and agree with the residents note unless specified in my note
[2019-03-17] MEDS: Pantoprazole 40 MG Tab.CR PO SCH (09:02)
[2019-03-17] MEDS: Donepezil 10 MG Tab PO SCH (09:02)
[2019-03-17] MEDS: Furosemide 40 MG Tab PO SCH (09:03)
[2019-03-17] MEDS: Metoprolol Tartrate 25 MG Tab PO SCH (09:03)
[2019-03-17] MEDS: predniSONE 20 MG Tab PO SCH (09:03)
[2019-03-17] MEDS: MEMANTINE HCL 28 MG PO SCH (09:17)
[2019-03-17 11:42] VITALS: BP 166/78; PULSE 64
[2019-03-17] MEDS: Levofloxacin 250 MG Tab PO SCH (14:05)
[2019-03-17] MEDS ORDERED: Warfarin 5 MG Tab PO ONE (14:30)
== END 2019-03-17 15:45 | DRG 193 ==
LOC: MW.ED 15:30 → MW.MS 17:40 → UNDOADMOB 17:47 → MW.MS 03-13 17:40 → UNDOADMOB 03-13 17:40 → MW.MS 03-14 12:42 → OBSVTOIN 03-14 14:40
PROVIDERS: ADMIT Internal Medicine; ATTEND Internal Medicine
DX: J18.9 Pneumonia, unspecified organism (principal); J96.01 Acute respiratory failure with hypoxia; J44.0 Chronic obstructive pulmonary disease with (acute) lower respiratory infection; I48.20 Chronic atrial fibrillation, unspecified; R09.02 Hypoxemia; I48.91 Unspecified atrial fibrillation; J93.9 Pneumothorax, unspecified; I50.9 Heart failure, unspecified; R32 Unspecified urinary incontinence; Z66 Do not resuscitate; Z51.5 Encounter for palliative care; I11.0 Hypertensive heart disease with heart failure; J44.9 Chronic obstructive pulmonary disease, unspecified; G30.9 Alzheimer's disease, unspecified; F02.80 Dementia in other diseases classified elsewhere, unspecified severity, without behavioral disturbance, psychotic disturbance, mood disturbance, and anxiety; F41.9 Anxiety disorder, unspecified; F32.9 Major depressive disorder, single episode, unspecified; Z87.891 Personal history of nicotine dependence; Z79.01 Long term (current) use of anticoagulants; Z79.51 Long term (current) use of inhaled steroids; Z79.899 Other long term (current) drug therapy; Z99.81 Dependence on supplemental oxygen
CPT/HCPCS: 36415 ×4; 71045; 71250; 80053 ×4; 81001; 82962; 83605; 83690; 83735; 83880; 84484; 85007; 85025 ×3; 85027; 85610 ×3; 87040 ×2; 87804 ×2; 92610; 93005; 93306; 94640 ×8; 99285; A9270 ×21; J1940 ×2; J1956 ×3; J2543; J2930 ×4; J3370; J7050; 80048; 80202; 84100; J7620-GY

== ENCOUNTER 2019-04-30 05:33 | Emergency (ER) | payer MEDICARE, BC ==
--- NOTE | 2019-04-30 05:48 | EDM.PDOC ---
ED HPI GENERAL MEDICAL PROBLEM - General Stated Complaint: RESPIRATORY DISTRESS Time Seen by Provider: 04/30/19 05:40 Source of Information: Reports: EMS - History of Present Illness INITIAL COMMENTS - FREE TEXT/NARRATIVE: Patient is a 73-year-old demented COPD patient from a local [facility] who is chronically on oxygen at 2 to 3 L who presents to the ER for reported shortness of breath. EMS states that they arrived and the patient was wheezing significantly. The patient at this nursing facility does not have any nebulizers scheduled despite his COPD history. His oxygen levels were low and he had pulled off his SPO2 and oxygen was restarted and the patient was given a nebulizer breathing treatment and now he is doing much better. He is at his baseline mental status which is nonverbal. He is a DNR DO NOT INTUBATE. No reported fevers. No other acute complaints. - Related Data Allergies Allergy/AdvReac Type Severity Reaction Status Date / Time No Known Allergies Allergy Verified 03/11/19 19:19 Home Meds: Home Meds Warfarin [Coumadin] 5 mg PO SUTUTHSA 02/02/17 [History] Donepezil HCl [Aricept] 10 mg PO DAILY 7 Days #7 tablet 12/13/17 [Rx] Magnesium Hydroxide [Milk of Magnesia] 30 ml PO DAILY PRN 7 Days #1 cup [Rx] Metoprolol Tartrate 25 mg PO BID 7 Days #14 tablet 12/13/17 [Rx] Umeclidinium Brm/Vilanterol Tr [Anoro Ellipta 62.5-25 MCG] 1 inh IH DAILY 7 Days #7 inhaler 12/13/17 [Rx] bisacodyL [Dulcolax] 1 supp RECTAL ASDIRECTED PRN 7 Days #7 supp 12/13/17 [Rx] Memantine HCl [Namenda Xr] 28 mg PO DAILY 30 Days #30 cap.er 12/14/17 [Rx] Camphor/Menthol [Sarna Lotion] 1 applic TOP ASDIRECTED PRN 02/14/19 [History] Triamcinolone Acetonide [Nasacort] 2 spray NASBOTH DAILY 02/14/19 [History] Acetaminophen [Acetaminophen Extra Strength] 500 mg PO TID 03/11/19 [History] Albuterol [Ventolin HFA] 1 puff INH Q6H PRN 03/11/19 [History] Albuterol [Ventolin HFA] 2 puff INH Q6H PRN 03/11/19 [History] Camphor/Menthol [Sarna Lotion] 1 applic TOP DAILY PRN 03/11/19 [History] Memantine HCl [Namenda Xr] 28 mg PO DAILY 03/11/19 [History] Triamcinolone Acetonide [Nasacort] 2 sprays NS DAILY 03/11/19 [History] Warfarin [Coumadin] 4 mg PO MOWEFR 03/11/19 [History] Levofloxacin [Levaquin] 750 mg PO DAILY #5 tablet 03/16/19 [Rx] Past Medical History - Past Health History Medical/Surgical History: Denies Medical/Surgical History Cardiovascular History: Reports: Afib, Hypertension Respiratory History: Reports: COPD Genitourinary History: Reports: Urinary Incontinence Neurological History: Reports: Alzheimers Disease Psychiatric History: Reports: Alzheimers Disease, Anxiety, Dementia, Depression Dermatologic History: Reports: Other (See Below) Other Dermatologic History: dry skin - Infectious Disease History Infectious Disease History: Reports: None - Past Surgical History Cardiovascular Surgical History: Reports: Other (See Below) Other Cardiovascular Surgeries/Procedures: cardioversion Neurological Surgical History: Reports: None Social & Family History - Family History Family Medical History: Noncontributory - Caffeine Use Caffeine Use: Reports: Coffee ED ROS GENERAL - Review of Systems Review Of Systems: Unable To Obtain Reason Not Obtained: Nonverbal and demented ED EXAM, GENERAL - Physical Exam Exam: See Below Free Text/Narrative:: Constitutional: Elderly demented patient with a nonrebreather on who smiles and waves at me and is no longer in any respiratory distress. HEENT: Normocephalic, Atraumatic, pupils are equal round and reactive to light, EOMI Neck: Normal range of motion, No stridor, trachea midline Respiratory: No respiratory distress, No tachypnea, good aeration throughout both lung hernandez, no current wheezing, no rales, no rhonchi, no accessory muscle usage Cardiovascular: Regular rate and rhythm Gastrointestinal: Diminished soft and not distended Genital / Urinary: Deferred Musculoskeletal: All four extremities present and atraumatic, there is bilateral edema in both lower extremities but the patient has Jalen wrap on his right lower extremity for the edema but not for his left Back: FROM Integument: Warm, Dry, Color is ethnicity appropriate, No rash. Neuro: Alert, Awake, training nerves grossly intact, moves all 4 extremities equally Psych: Pleasant and cooperative Course - Vital Signs Text/Narrative:: We contacted the nursing facility to check on several things. #1, why if the patient has bilateral lower extremity edema are the only wrapping one leg and not both and the nurses there do not know. #2 -the patient does have PRN nebulizer schedule but the nursing staff there did not know that they could give them. And 1 nurse states that she was busy passing meds. Thus, given that we have a COPD patient who turned around after 1 respiratory treatment, he does have scheduled nebulizers but the nursing staff does not know what as needed means, we will explained to them that PRN means they can give the breathing treatments and they should and this should take precedence over passing medications. Given that I do question the ability of the nursing staff to correctly give out any prednisone scheduled we will give the patient 1 dose of Decadron while he is here. Last Recorded V/S: Last Vital Signs Temp 36.2 C 04/30/19 07:05 Pulse 89 04/30/19 07:05 Resp 18 04/30/19 07:05 BP 140/84 04/30/19 07:05 Pulse Ox 95 04/30/19 07:05 - Orders/Labs/Meds Meds: Medications Discontinued Medications Generic Name Dose Route Start Last Admin Trade Name Freq PRN Reason Stop Dose Admin Dexamethasone 20 mg 04/30/19 05:53 04/30/19 05:58 Dexamethasone IM 04/30/19 05:54 20 mg ONETIME ONE Administration Departure - Departure Time of Disposition: 05:51 Disposition: DC/[facility]fer to [facility] Condition: Good Clinical Impression: COPD exacerbation - Discharge Information Instructions: Chronic Obstructive Pulmonary Disease Exacerbation, [id number] Referrals: PCP,None [Primary Care Provider] - Forms: ED Department Discharge Additional Instructions: In the future - PRN means you give the patient his nebulizer breathing treatments as needed. So if the patient is wheezing and having trouble breathing then please give him his nebulizer treatments. This should take precedence over other activities. If the patient improves sufficiently, then he does not need to go to the ER. Sepsis Event Note - Focused Exam Vital Signs: Vital Signs Temp Pulse Resp BP Pulse Ox 04/30/19 07:05 36.2 C 89 18 140/84 95 Date Exam was Performed: 04/30/19 Time Exam was Performed: 18:55
[2019-04-30] MEDS ORDERED: Dexamethasone 10 MG/ML SDV IM ONE (05:53)
[2019-04-30 07:26] VITALS: BP 140/84; PULSE 89
== END 2019-04-30 07:05 ==
LOC: MW.ED 05:33
DX: J44.1 Chronic obstructive pulmonary disease with (acute) exacerbation (principal); I10 Essential (primary) hypertension; I48.91 Unspecified atrial fibrillation; F41.9 Anxiety disorder, unspecified; G30.9 Alzheimer's disease, unspecified; F02.80 Dementia in other diseases classified elsewhere, unspecified severity, without behavioral disturbance, psychotic disturbance, mood disturbance, and anxiety; Z79.899 Other long term (current) drug therapy
CPT/HCPCS: 96372; 99285; J1100; 99283